=== PATIENT | female | born 1985 | race Caucasian/White ===

== ENCOUNTER 2017-04-11 11:07 | Emergency (ER) | payer MEDICAID, SELFPAY ==
[2017-04-11 12:10] VITALS: BP 150/85; PULSE 74; RESP 16; TEMP 37.1; O2SAT 98; BMI 35.2
== END 2017-04-11 13:17 | disposition left against medical advice (07) ==
LOC: UTC 11:14
PROVIDERS: Emergency Provider Nurse Practitioner Family; Family Provider Nurse Practitioner Family; PCP Nurse Practitioner Family
DX: Z53.29 Procedure and treatment not carried out because of patient's decision for other reasons (principal)
CPT/HCPCS: 99202

== ENCOUNTER 2017-04-13 00:43 | Emergency (ER) | payer MEDICAID, SELFPAY ==
[2017-04-13 00:51] VITALS: BP 131/79; PULSE 82; RESP 18; TEMP 36.7; O2SAT 99; BMI 35.1
--- NOTE | 2017-04-13 01:37 | HMH.EDHA ---
ED Disposition Clinical Impression: Headache Qualifiers: Headache type: unspecified Headache chronicity pattern: acute headache Intractability: not intractable Qualified Code(s): R51 - Headache Disposition: Home, Self-Care Condition on Discharge: Good Instructions: DI for Headache Additional Instructions: call pcp for follow up Referrals: Carmelo Blandon APRN [Primary Care Provider] - - Critical Care Critical Care Time: No Attestation: On 04/13/17, the high probability of a clinically significant, sudden or life threatening deterioration of the following system(s) required my full and direct attention, intervention and personal management. The time I documented below is in addition to time spent performing reported procedures but includes the following listed in this critical care notation. Medical Decision Making - Medical Records Medical records reviewed: Yes: I reviewed the patient's medical records. Vital Signs: 04/13/17 00:51 Temperature 98.0 F Temperature Source Oral Pulse Rate [Right Radial] 82 Respiratory Rate 18 Blood Pressure [Right Arm] 131/79 Blood Pressure Mean [Right Arm] 96 Blood Pressure Source [Right Arm] Automatic Cuff Blood Pressure Position [Right Arm] Sitting 02 Sat by Pulse Oximetry 99 Oxygen Delivery Method Room Air - Lab Data Lab results reviewed: Yes: I reviewed the patient's lab results. Lab Results 04/13/17 01:40: Urine HCG, Qual Negative Orders (Tests/Meds): ORDERS Category Date Time Status CT head/brain wo con Stat Cat Scan 04/13/17 01:43 Taken - CT Data CT Scan: Head Time Received: 02:[address] Reviewed: Yes: I have viewed the radiologist's interpretation Preliminary Findings: Normal/NAD - Juan Diego Inquiry Pt receiving controlled substance: No Headache HPI - General Chief Complaint: Headache Stated Complaint: migraine,pain in left hand Time Seen by Provider: 04/13/17 01:37 Mode of Arrival: Ambulatory Source of Information: Patient, Spouse, Medical Record Limitations: No Limitations Description of Symptoms (Recalled from ER Triage Doc. by RN): PT REPORTS MIGRAINE IN THE BACK OF HER HEAD WITH NAUSEA. - History of Present Illness HPI Narrative: pt with bilat occitial reyes over the last few days which is different from prev reyes with nausea but no fever/rash or trauma MD Complaint: headache Onset (ago): day(s) Onset description: now resolved Location: occipital Severity: moderate Quality: different than previous headaches Relieving factors: rest, NSAIDs, dark room Context: occurred at rest Associated symptoms: nausea Treatments prior to arrival: acetaminophen, ibuprofen - Related Data Home Medications Medication Instructions Recorded Confirmed Furosemide [Lasix 20mg tab] 20 mg PO NEEDED PRN 04/13/17 04/13/17 Allergies Allergy/AdvReac Type Severity Reaction Status Date / Time No Known Allergies Allergy Verified 04/13/17 01:01 [facility] History I have reviewed the patient's past medical history: Yes - *Social History Alcohol Intake: never - Psychiatric History Expresses thoughts of harming self/others: None Suicide Plan Description: No Plan ROS Obtained: Yes All systems reviewed & no additional complaints - Constitutional Constitutional: Denies fever(s) - Eyes Eyes: Denies change in vision - ENT Ears, Nose, Mouth, and Throat: Denies dizziness, Denies sore throat - Cardiovascular Cardiovascular: Denies chest pain at rest - Respiratory Respiratory: No cough - Gastrointestinal Gastrointestingal: Reports: nausea. Denies: abdominal pain - Musculoskeletal Musculoskeletal: Denies joint pain, Denies joint swelling - Integumentary/Breasts Skin/Breast: Denies rash - Neurologic Neurologic: Reports headache(s), Denies loss of vision, Denies seizure-like activity Physical Exam - General General appearance: in no apparent distress - Head Head exam: atraumatic - Eye Eye exam: Present: PERRL
--- NOTE | 2017-04-13 01:40 | ED_ITS ---
ED Disposition Clinical Impression: Headache Qualifiers: Headache type: unspecified Headache chronicity pattern: acute headache Intractability: not intractable Qualified Code(s): R51 - Headache Disposition: Home, Self-Care Condition on Discharge: Good Instructions: DI for Headache Additional Instructions: call pcp for follow up Referrals: Carmelo Blandon APRN [Primary Care Provider] - - Critical Care Critical Care Time: No Attestation: On 04/13/17, the high probability of a clinically significant, sudden or life threatening deterioration of the following system(s) required my full and direct attention, intervention and personal management. The time I documented below is in addition to time spent performing reported procedures but includes the following listed in this critical care notation. Medical Decision Making - Medical Records Medical records reviewed: Yes: I reviewed the patient's medical records. Vital Signs: 04/13/17 00:51 Temperature 98.0 F Temperature Source Oral Pulse Rate [Right Radial] 82 Respiratory Rate 18 Blood Pressure [Right Arm] 131/79 Blood Pressure Mean [Right Arm] 96 Blood Pressure Source [Right Arm] Automatic Cuff Blood Pressure Position [Right Arm] Sitting 02 Sat by Pulse Oximetry 99 Oxygen Delivery Method Room Air - Lab Data Lab results reviewed: Yes: I reviewed the patient's lab results. Lab Results 04/13/17 01:40: Urine HCG, Qual Negative Orders (Tests/Meds): ORDERS Category Date Time Status CT head/brain wo con Stat Cat Scan 04/13/17 01:43 Taken - CT Data CT Scan: Head Time Received: 02:[address] Reviewed: Yes: I have viewed the radiologist's interpretation Preliminary Findings: Normal/NAD - Juan Diego Inquiry Pt receiving controlled substance: No Headache HPI - General Chief Complaint: Headache Stated Complaint: migraine,pain in left hand Time Seen by Provider: 04/13/17 01:37 Mode of Arrival: Ambulatory Source of Information: Patient, Spouse, Medical Record Limitations: No Limitations Description of Symptoms (Recalled from ER Triage Doc. by RN): PT REPORTS MIGRAINE IN THE BACK OF HER HEAD WITH NAUSEA. - History of Present Illness HPI Narrative: pt with bilat occitial reyes over the last few days which is different from prev reyes with nausea but no fever/rash or trauma MD Complaint: headache Onset (ago): day(s) Onset description: now resolved Location: occipital Severity: moderate Quality: different than previous headaches Relieving factors: rest, NSAIDs, dark room Context: occurred at rest Associated symptoms: nausea Treatments prior to arrival: acetaminophen, ibuprofen - Related Data Home Medications Medication Instructions Recorded Confirmed Furosemide [Lasix 20mg tab] 20 mg PO NEEDED PRN 04/13/17 04/13/17 Allergies Allergy/AdvReac Type Severity Reaction Status Date / Time No Known Allergies Allergy Verified 04/13/17 01:01 [facility] History I have reviewed the patient's past medical history: Yes - *Social History Alcohol Intake: never - Psychiatric History Expresses thoughts of harming self/others: None Suicide Plan Description: No Plan ROS Obtained: Yes All systems reviewed & no additional complaints - Constitutional Constitutional: Denies fever(s)
--- NOTE | 2017-04-13 01:43 | CT_ITS ---
CT head/brain wo con INDICATION: Headache at the base of skull for [address] scan of brain 02/08/2016 Findings: Routine axial images for brain followed by additional post-processing axial bone window images. Axial CT scanning from the base of the skull through the vertex to evaluate the brain was performed. Subsequent post processing 2-D CT bone windows were submitted to PACS and are useful to evaluate calvarium, visualize portions of paranasal sinuses, mastoids and base of skull. Multiaxial scans are obtained from the base of the skull to the vertex and performed without contrast. The base of the skull appeared normal. The ventricular system was normal. There was no ischemic infarct or bleed and there were no extra-axial fluid collections. The bony calvarium appeared intact. IMPRESSION: Negative noncontrast CT scan of the brain. Agree the [facility] report
[2017-04-13 01:50] LABS: Urine Pregnancy, HCG Qual. Negative (Negative)
== END 2017-04-13 03:03 | disposition home or self-care (01) ==
PROVIDERS: Emergency Provider Emergency Medicine; Family Provider Nurse Practitioner Family; PCP Nurse Practitioner Family
DX: R51 Headache (principal)
CPT/HCPCS: 70450; 81025; 96372; 99283; J0595

== ENCOUNTER → 2017-04-17 14:11 | Outpatient (CLI) | payer MEDICAID, SELFPAY ==
[2017-04-17 19:57] LABS: Alanine Aminotransferase 120 U/L (12-78); Albumin/Globulin Ratio 1.1 (1.1-1.8); Alkaline Phosphatase 106 U/L (46-116); Anion Gap 13.3 mEq/L (5-15); Bilirubin,Total 0.3 mg/dL (0.2-1.0); Blood Urea Nitrogen 11 mg/dL (7-18); Calcium 8.8 mg/dL (8.5-10.1); Carbon Dioxide 26 mmol/L (21.0-32.0); Chloride 102 mmol/L (98-107); Creatinine,Serum 0.83 mg/dL (0.55-1.02); Estimated Glomerular Filt Rate 80 ml/min (>60); GFR (African American) 97 ML/MIN (>60); Globulin 3.5 gm/dl (1.3-3.2); Glucose 78 mg/dL (74-106); Sodium 137 mmol/L (136-145); Total Protein,Serum 7.5 gm/dL (6.4-8.2)
[2017-04-17 20:04] LABS: Potassium 4.3 mmoL/L (3.5-5.1)
[2017-04-17 20:05] LABS: Aspartate Amino Transferase 46 U/L (15-37)
== END ==
PROVIDERS: Visit Provider Nurse Practitioner Family
DX: R74.8 Abnormal levels of other serum enzymes (principal)
CPT/HCPCS: 80053

== ENCOUNTER → 2017-04-30 13:09 | Outpatient (CLI) | payer MEDICAID, SELFPAY ==
--- NOTE | 2017-04-30 13:11 | CA_ITS ---
PROCEDURE: 2-D M-mode and color Doppler study INDICATIONS FOR THE TEST: Chest pain COPD Heart Murmur Tobacco Smoking Palpitations Fatigue Syncope Edema Hypertension Diabetes Mellitus Rheumatic Fever SOB GOMEZ Obesity Hyperlipidemia Family History HD Additional History New onset headaches, R/O PFO, Dizziness PATIENT INFORMATION HEIGHT: 67'' WEIGHT:180 GENDER: Female B/P:126/50 2-D/M-MODE INTERPRETATION: 2-D MEASUREMENTS OBSERVED VALUES IN CMS Right Ventricular Dimension (RVDd) 2.0 Interventricular Septum (Thickness)(IVsd) 1.1 Left Ventricular Internal Dimensions(LVIDd) 4.2 Left Ventricular Posterior Wall (Thickness)(LVPWd) 1.0 Aortic Root 2.6 Aortic Cusp Separation 1.5 Left Atrial Dimensions (LAD) 3.7 2D 1. Left atrium is normal size, left ventricle is normal size, there is no concentric left ventricular hypertrophy, visually estimated ejection fraction 55% with no obvious regional wall motion abnormality. 2. The right atrium and right ventricle are normal size and contractility. 3. The aortic, mitral and tricuspid valve are structurally normal. 4. The pulmonic valve is poorly visualized. 5. No significant pericardial effusion noted. DOPPLER INTERROGATION: Doppler interrogation of the aortic, mitral and tricuspid valve reveals presence of mild mitral and tricuspid regurgitation, diastolic parameters are within normal limits, tricuspid regurgitant jet velocity insufficient for calculation of the right ventricular systolic pressure. Agitated saline contrast study fails to identify intracardiac shunt. CONCLUSION: 1. Normal left ventricular size, preserved left ventricular systolic function, visually estimated ejection fraction 55% with no obvious regional wall motion abnormality, diastolic parameters are within normal range. 2. Mild mitral and tricuspid regurgitation. 3. Agitated saline contrast study fails to identify intracardiac shunt.
== END ==
PROVIDERS: Family Provider Nurse Practitioner Family; PCP Emergency Medicine; Visit Provider Emergency Medicine
DX: R51 Headache (principal)
CPT/HCPCS: 93306

== ENCOUNTER → 2017-05-05 13:16 | Outpatient (CLI) | payer MEDICAID, SELFPAY ==
--- NOTE | 2017-05-05 13:19 | MR_ITS ---
MR head/brain wo con HISTORY: Severe headache mainly on the right side ORDERING PHYSICIAN: Andre Morales MD PATIENT AGE: 31 years COMPARISON: CT scan 04/13/2017 TECHNIQUE: Standard multiplanar multiecho sequences are performed without contrast. FINDINGS: No midline shift, mass effect, hydrocephalus, or intracranial mass evident. No evidence of acute infarction. No cerebellar tonsillar ectopia. Normal morales-white matter differentiation. There is a small cystic area in the subinsular region on the left measuring 4 mm and may be due to a small perivascular dilated spaces, choroidal fissure cyst, or old lacunar infarction with cystic changes. The cerebellopontine angles, cerebellum, and brainstem are unremarkable. Hippocampal gyri are unremarkable in the temporal horns are symmetric. The included. Optic chiasm and corpus callosum are unremarkable. Unremarkable craniocervical junction. No sinus air-fluid level. There is some fluid signal in the left mastoid sinus. IMPRESSION: 1. No acute intracranial findings. 2. Left mastoid effusion. 3. Small benign-appearing cystic area in the left subinsular region at 4 mm
--- NOTE | 2017-05-05 13:19 | US_ITS ---
ULTRASOUND THYROID PROCEDURE: Multiple sagittal & transverse ultrasound images of the thyroid. HISTORY:weight gain headaches fatigue COMPARISON: No relevant previous studies. ----- FINDINGS: Upper normal size thyroid gland. No nodules or masses. Normal color Doppler flow RIGHT LOBE: 4.3 cm length x 1.2 cm x 1.7 cm wide Slightly lobulated posterior margin of the right lobe but no discrete nodule. Fairly homogeneous . LEFT LOBE: 4.1 cm length x 1.5 cm wide x 1.3 cm. Normal posterior left lobe with no discrete nodule ISTHMUS:. Unremarkable. Normal thickness measuring 3 mm AP -----IMPRESSION------- Thyroid gland upper normal in size No nodule or mass is identified... Fairly homogeneous architecture
--- NOTE | 2017-05-14 04:14 | PC.NURSE ---
MRI RESULTS FAXED TO AT [phone]
== END ==
PROVIDERS: Family Provider Nurse Practitioner Family; PCP Emergency Medicine; Visit Provider Emergency Medicine
DX: R51 Headache (principal); E04.9 Nontoxic goiter, unspecified
CPT/HCPCS: 70551; 76536

== ENCOUNTER 2017-07-24 09:00 | Outpatient (RCR) | payer MEDICAID, SELFPAY | END 2017-07-24 09:01 | disposition home or self-care (01) | LOC: PT 09:00 | PROVIDERS: Family Provider Nurse Practitioner Family; PCP Emergency Medicine | DX: S46.819A Strain of other muscles, fascia and tendons at shoulder and upper arm level, unspecified arm, initial encounter (principal) | CPT/HCPCS: 97010; 97012; 97014; 97110; 97140; 97163; G0283 ==

== ENCOUNTER → 2017-07-31 11:17 | Outpatient (REF) | payer MEDICAID, SELFPAY ==
[2017-07-31 13:56] LABS: Alanine Aminotransferase 34 U/L (12-78); Albumin Level 3.9 gm/dL (3.4-5.0); Albumin/Globulin Ratio 1.2 (1.1-1.8); Alkaline Phosphatase 88 U/L (46-116); Anion Gap 15.5 mEq/L (5-15); Aspartate Amino Transferase 21 U/L (15-37); Bilirubin,Total 0.3 mg/dL (0.2-1.0); Blood Urea Nitrogen 11 mg/dL (7-18); Calcium 9.4 mg/dL (8.5-10.1); Carbon Dioxide 26 mmol/L (21.0-32.0); Chloride 106 mmol/L (98-107); Creatinine,Serum 0.74 mg/dL (0.55-1.02); Estimated Glomerular Filt Rate 92 ml/min (>60); GFR (African American) 111 ML/MIN (>60); Globulin 3.3 gm/dl (1.3-3.2); Glucose 110 mg/dL (74-106); Potassium 4.5 mmoL/L (3.5-5.1); Sodium 143 mmol/L (136-145); Total Protein,Serum 7.2 gm/dL (6.4-8.2)
== END ==
LOC: LAB 11:17
PROVIDERS: Visit Provider Nurse Practitioner Family
DX: R60.1 Generalized edema (principal); R53.83 Other fatigue; R63.5 Abnormal weight gain
CPT/HCPCS: 80053

== ENCOUNTER → 2017-08-02 09:28 | Outpatient (CLI) | payer MEDICAID, SELFPAY ==
[2017-08-02 12:32] LABS: Creatinine,Serum 0.89 mg/dL (0.55-1.02)
[2017-08-02 14:41] LABS: Creatinine,Urine Random 144 mg/dL (20-320); Patient Height,Urine 65; Patient Weight,Urine 220
[2017-08-02 15:22] LABS: Collection Time,Urine 24 hours; Creatinine 24 Hour,Urine 1728 mg/24hr (630-2500); Creatinine Clearance Urine 113.6 mL/min (25-115); Total Volume,Urine 1200 mL (600-1600)
== END ==
PROVIDERS: Visit Provider Nurse Practitioner Family
DX: R60.9 Edema, unspecified (principal)
CPT/HCPCS: 36415; 82575

== ENCOUNTER → 2017-08-06 08:06 | Outpatient (CLI) | payer MEDICAID, SELFPAY ==
--- NOTE | 2017-08-06 08:07 | NVE_ITS ---
Venous Exam Indications: 729.5 Pain in limb. 782.3 Edema. IMPRESSIONS No evidence of deep or superficial vein thrombosis involving the right lower extremity History: Right lower extremity pain. Edema of the right leg. Risk factors: Obese. Denies trauma. States she wakes up in the morning with edema in bilateral lower extremities. She's been taking Lasix but states it doesn't seem to be helping with the edema. Right lower extremity venous duplex evaluation. Doppler flow study including spectral analysis, color and morales scale imaging. Location: Vascular laboratory. Patient status: Outpatient. Tables: Venous flow and imaging: + +-------+ + Location Overall Flow properties + +-------+ + Right common femoral Patent Normal phasicity; spontaneous; normal augmentation; compressible + +-------+ + Right saphenofemoral junction Patent Compressible + +-------+ + Right profunda femoral Patent Compressible + +-------+ + Right femoral Patent Normal phasicity; spontaneous; normal augmentation; compressible + +-------+ + Right greater saphenous Patent Normal phasicity; spontaneous; normal augmentation; compressible + +-------+ + Right popliteal Patent Normal phasicity; spontaneous; normal augmentation; compressible + +-------+ + Right posterior tibial Patent Compressible + +-------+ + Right peroneal Patent Compressible + +-------+ + Right gastrocnemius Patent Compressible + +-------+ + Right soleal Patent Compressible + +-------+ + (Report amended ) Electronically signed by: Laci Cisse [id number]
== END ==
PROVIDERS: Family Provider Nurse Practitioner Family; PCP Emergency Medicine; Visit Provider Nurse Practitioner Family
DX: R60.1 Generalized edema (principal)
CPT/HCPCS: 93971

== ENCOUNTER → 2017-11-28 12:50 | Outpatient (CLI) | payer MEDICAID, SELFPAY ==
--- NOTE | 2017-11-28 12:51 | US_ITS ---
ULTRASOUND THYROID. HISTORY: Thyroid enlarged 6 month follow-up PROCEDURE: Multiple sagittal and transverse ultrasound images of the thyroid. COMPARISON: Previous thyroid ultrasound to 518 ----- FINDINGS: Fairly Homogeneous gland with no nodules evident. Slightly generous size gland bilaterally. RIGHT LOBE: 4.5 cm length x 1.6 cm AP x 1.4 cm wide. . LEFT LOBE: 4.3 cm length x 1.7 cm wide x 1.3 cm AP . ISTHMUS: Normal thickness 2.7 mm at midline. IMPRESSION 1. Borderline to slightly enlarged gland bilaterally. No nodule or mass is identified. No significant change since May 2017
== END ==
PROVIDERS: Family Provider Nurse Practitioner Family; PCP Emergency Medicine; Visit Provider Otolaryngology
DX: E01.0 Iodine-deficiency related diffuse (endemic) goiter (principal)
CPT/HCPCS: 76536

== ENCOUNTER → 2017-12-25 08:33 | Outpatient (CLI) | payer MEDICAID, SELFPAY ==
--- NOTE | 2017-12-25 08:35 | AS_ITS ---
Renal Arterial Duplex Indications: 405.91 Unspecified renovascular hypertension. IMPRESSIONS 1. The right renal artery appears normal. 2. The left renal artery appears normal. 3. Kidney size is within normal limits, bilaterally. Complete renal arterial duplex. Duplex scan and Doppler flow study including spectral analysis, color and morales scale imaging. Height: Height: 165.1cm. Height: 65in. Weight: Weight: 104.3kg. Weight: 229.5lb. Body mass index: BMI: 38.3kg/m^2. Body surface area: BSA: 2.24m^2. Location: Vascular laboratory. Patient status: Outpatient. Tables: Arterial flow: + +-------+--------+ Location V sys V ed + +-------+--------+ Right renal - proximal 157cm/s 54.3cm/s + +-------+--------+ Right renal - mid 201cm/s 58.7cm/s + +-------+--------+ Right renal - distal 193cm/s 63.6cm/s + +-------+--------+ Left renal - proximal 145cm/s 43.7cm/s + +-------+--------+ Left renal - mid 142cm/s 41.3cm/s + +-------+--------+ Left renal - distal 155cm/s 51.9cm/s + +-------+--------+ Right renal - Origin 149cm/s 56cm/s + +-------+--------+ Left renal - Origin 143cm/s 58cm/s + +-------+--------+ Aorta 125cm/s 25cm/s + +-------+--------+ Artery mapping: + +--------+-------+ Location Diameter Patency + +--------+-------+ Abdominal aorta - mid 2.2mm Patent + +--------+-------+ Renal anatomy: + +------+------+ Left Right + +------+------+ Long axis 10.1cm 10.6cm + +------+------+ Short axis 5.6cm 5.6cm + +------+------+ Velocity ratios: + +-----+ V sys + +-----+ Right renal/aortic 1.6 + +-----+ Left renal/aortic 1.2 + +-----+ (Report amended ) Electronically signed by: Laci Cisse [id number]
== END ==
PROVIDERS: Family Provider Nurse Practitioner Family; PCP Nurse Practitioner Family; Visit Provider Nurse Practitioner Family
DX: R60.9 Edema, unspecified (principal)
CPT/HCPCS: 93976

== ENCOUNTER → 2018-01-07 08:39 | Outpatient (CLI) | payer MEDICAID, SELFPAY ==
--- NOTE | 2018-01-07 08:41 | CA_ITS ---
CA echo doppler complete PROCEDURE: INDICATIONS FOR THE TEST: Chest pain+ COPD Heart Murmur Tobacco Smoking Palpitations Fatigue Syncope Edema+ Hypertension+Diabetes Mellitus Rheumatic Fever SOB GOMEZ Obesity Hyperlipidemia Family History HD Additional History H/o migraines, HTN PATIENT INFORMATION HEIGHT: 65 WEIGHT: 226 GENDER: Female B/P: 108/73 2-D/M-MODE INTERPRETATION: 2-D MEASUREMENTS OBSERVED VALUES IN CMS Right Ventricular Dimension (RVDd) 1.8 Interventricular Septum (Thickness)(IVsd) 0.7 Left Ventricular Internal Dimensions(LVIDd) 4.7 Left Ventricular Posterior Wall (Thickness)(LVPWd) 0.7 Aortic Root 2.6 Aortic Cusp Separation 1.8 Left Atrial Dimensions (LAD) 3.4 2D 1. Left atrium is normal size, left ventricle is normal size, there is no concentric left ventricular hypertrophy, visually estimated ejection fraction 55% with no regional wall motion abnormality. 2. The right atrium and right ventricle are normal size and contractility. 3. The aortic, mitral and tricuspid valvular grossly normal. 4. The pulmonic valve is poorly visualized. 5. No significant pericardial effusion noted. DOPPLER INTERROGATION: Doppler interrogation of the aortic, mitral and tricuspid valvular presence of mild mitral and tricuspid regurgitation, tricuspid regurgitation jet velocity is inadequate for calculation of the right ventricular systolic pressure, diastolic parameters are within normal range. CONCLUSION: 1. Normal left ventricular size, visually estimated ejection fraction 55% with no regional wall motion abnormality, diastolic parameters are within normal range. 2. Mild mitral and tricuspid regurgitation 3. No significant pericardial effusion noted.
== END ==
PROVIDERS: Family Provider Nurse Practitioner Family; PCP Nurse Practitioner Family; Visit Provider Internal Medicine
DX: R06.00 Dyspnea, unspecified (principal); R07.9 Chest pain, unspecified
CPT/HCPCS: 93017; 93306

== ENCOUNTER → 2018-02-09 09:26 | Outpatient (CLI) | payer MEDICAID, SELFPAY | PROVIDERS: PCP Nurse Practitioner Family; Visit Provider Internal Medicine Cardiovascular Disease | DX: R06.83 Snoring (principal); R40.0 Somnolence; R53.83 Other fatigue; R60.0 Localized edema | CPT/HCPCS: 95806 ==

== ENCOUNTER → 2018-02-26 10:37 | Outpatient (CLI) | payer MEDICAID, SELFPAY ==
[2018-02-26 10:55] LABS: Anion Gap 11.4 mEq/L (5-15); Blood Urea Nitrogen 10 mg/dL (7-18); Calcium 9.1 mg/dL (8.5-10.1); Carbon Dioxide 30 mmol/L (21.0-32.0); Chloride 101 mmol/L (98-107); Creatinine,Serum 0.86 mg/dL (0.55-1.02); Estimated Glomerular Filt Rate 76 ml/min (>60); GFR (African American) 93 ML/MIN (>60); Glucose 85 mg/dL (74-106); Potassium 4.4 mmoL/L (3.5-5.1); Sodium 138 mmol/L (136-145)
== END ==
PROVIDERS: Visit Provider Internal Medicine Cardiovascular Disease
DX: R60.0 Localized edema (principal)
CPT/HCPCS: 36415; 80048

== ENCOUNTER → 2018-03-06 11:34 | Outpatient (CLI) | payer MEDICAID, SELFPAY ==
[2018-03-06 12:24] LABS: Anion Gap 12.2 mEq/L (5-15); Blood Urea Nitrogen 12 mg/dL (7-18); Calcium 9.3 mg/dL (8.5-10.1); Carbon Dioxide 29 mmol/L (21.0-32.0); Chloride 103 mmol/L (98-107); Creatinine,Serum 0.94 mg/dL (0.55-1.02); Estimated Glomerular Filt Rate 69 ml/min (>60); GFR (African American) 84 ML/MIN (>60); Glucose 86 mg/dL (74-106); Potassium 4.2 mmoL/L (3.5-5.1); Sodium 140 mmol/L (136-145)
== END ==
PROVIDERS: Urology; PCP Nurse Practitioner Family; Visit Provider Internal Medicine Cardiovascular Disease
DX: R60.0 Localized edema (principal)
CPT/HCPCS: 36415; 80048

== ENCOUNTER → 2018-03-13 11:46 | Outpatient (CLI) | payer MEDICAID, SELFPAY ==
--- NOTE | 2018-03-13 11:48 | XR_ITS ---
XR hand LT min 3V HISTORY: ITS.REASON: Nodule on left hand ORDERING PHYSICIAN: Jennifer Martínez PATIENT AGE: 32 years COMPARISON: None FINDINGS: No fracture or dislocation. No lytic or blastic change. There is normal mineralization.. The joint spaces are well-preserved. No significant degenerative/arthritic changes. No erosive changes evident.. IMPRESSION: Negative, no acute finding
[2018-03-13 14:07] LABS: Basophils % 0.2 % (0.1-2.0); Eosinophils # 0.2 K/mm3 (0.0-0.4); Eosinophils % 2.4 % (0.1-12.0); Hematocrit 44.3 % (37.0-47.0); Hemoglobin 14.5 g/dL (12.2-16.2); Lymphocytes # 2.8 K/mm3 (0.7-4.5); Lymphocytes % 28.7 % (10-50); Mean Corpuscular HGB Conc 32.8 g/dL (31.8-35.4); Mean Corpuscular Hemoglobin 30.7 pg (27.0-31.2); Mean Corpuscular Volume 93.7 fl (81-99); Mean Platelet Volume 7.4 fl (7.4-10.4); Monocytes # 0.4 K/mm3 (0.1-1.0); Monocytes % 4.2 % (1.7-9.3); Neutrophils # 6.3 K/mm3 (1.8-7.8); Neutrophils % 64.6 % (37.0-80.0); Platelet Count 326 K/mm3 (142-424); Red Blood Count 4.73 M/mm3 (4.20-5.40); Red Cell Distribution Width 12.9 % (11.5-17.5); White Blood Count 9.7 K/mm3 (4.8-10.8)
[2018-03-13 15:04] LABS: Cholesterol 187 mg/dL (140-200); HDL Cholesterol 31 mg/dL (29-89); LDL Cholesterol 126 mg/dL (0-130); Thyroid Stimulating Hormone 2.22 uIU/ml (0.358-3.740); Triglycerides 150 mg/dL (30-200); VLDL Cholesterol 30 mg/dL (0-40)
[2018-03-13 15:36] LABS: Erythrocyte Sedimentation Rate 34 mm/hr (0-20)
[2018-03-14 18:39] LABS: RA Latex Turbid. <10.0 IU/mL (0.0-13.9)
[2018-03-14 18:40] LABS: Vitamin D 25 Hydroxy 20.9 ng/mL (30.0-100.0)
[2018-03-16 09:10] LABS: PTT-LA 30.8 sec (0.0-51.9); dRVVT 47.6 sec (0.0-47.0); dRVVT Mix 40.8 sec (0.0-47.0)
[2018-03-16 10:59] LABS: Lupus Reflex Interpretation Comment: (.)
[2018-03-16 12:15] LABS: Anti-Centromere B Antibodies <0.2 AI (0.0-0.9); Anti-Jo-1 <0.2 AI (0.0-0.9); Anti-Smith Antibody <0.2 AI (0.0-0.9); Antichromatin Antibodies <0.2 AI (0.0-0.9); Antiscleroderma-70 Antibodies <0.2 AI (0.0-0.9); RNP Antibodies <0.2 AI (0.0-0.9); Sjogren's Anti-SS-A <0.2 AI (0.0-0.9); Sjogren's Anti-SS-B <0.2 AI (0.0-0.9)
[2018-03-16 14:58] LABS: Anti-DNA (DS) Ab Qn <1 IU/mL (0-9)
[2018-03-17 06:00] LABS: Anti-Cyclic Citrullinated Pept 3 units (0-19)
== END ==
PROVIDERS: PCP Nurse Practitioner Family; Visit Provider Nurse Practitioner Family
DX: R22.32 Localized swelling, mass and lump, left upper limb (principal); M79.642 Pain in left hand; M25.50 Pain in unspecified joint; R53.83 Other fatigue; Z79.899 Other long term (current) drug therapy; E55.9 Vitamin D deficiency, unspecified
CPT/HCPCS: 36415; 73130; 80061; 82652; 84439; 84443; 85025; 85613; 85651; 86140; 86200; 86225; 86235; 86431

== ENCOUNTER → 2018-05-18 15:40 | Outpatient (CLI) | payer MEDICAID, SELFPAY ==
[2018-05-18 17:21] LABS: Ferritin 65 ng/mL (8-388)
== END ==
PROVIDERS: Visit Provider Specialist
DX: E83.10 Disorder of iron metabolism, unspecified (principal); G25.81 Restless legs syndrome; G47.33 Obstructive sleep apnea (adult) (pediatric)
CPT/HCPCS: 36415; 82728

== ENCOUNTER → 2018-08-10 10:12 | Outpatient (CLI) | payer MEDICAID, SELFPAY ==
--- NOTE | 2018-08-10 10:15 | US_ITS ---
US extremity LT limited HISTORY: Palpable nodule left axillary region ITS.REASON: nodule ORDERING PHYSICIAN: Jennifer Martínez APRN PATIENT AGE: 32 years COMPARISON: None FINDINGS: There is a complex hypoechoic nodule in the subcutaneous area of the left axilla corresponding to the palpable abnormality. This measures 6 x 5 mm with some internal increased echogenicity centrally. There is some through sound enhancement. No other significant anomalies are evident. IMPRESSION: Complex cystic nodule in the subcutaneous area of the left axilla 6 x 5 mm. The specific etiology is nonspecific sonographically.
== END ==
PROVIDERS: PCP Nurse Practitioner Family; Visit Provider Nurse Practitioner Family
DX: R59.0 Localized enlarged lymph nodes (principal)
CPT/HCPCS: 76882

== ENCOUNTER → 2018-09-28 10:56 | Outpatient (CLI) | payer MEDICAID, SELFPAY ==
--- NOTE | 2018-09-28 11:01 | XR_ITS ---
XR wrist LT w scaphoid HISTORY ITS.REASON: left wrist pain ORDERING PHYSICIAN: Anna Astudillo MD PATIENT AGE: 32 years Comparison: None FINDINGS: No fracture or dislocation. No lytic or blastic change. There is normal mineralization.. The joint spaces are well-preserved. No significant degenerative/arthritic changes. No erosive changes evident.. IMPRESSION: Negative wrist
== END ==
PROVIDERS: PCP Nurse Practitioner Family; Visit Provider Orthopaedic Surgery
DX: M25.532 Pain in left wrist (principal)
CPT/HCPCS: 73110

== ENCOUNTER → 2018-10-16 07:42 | Outpatient (CLI) | payer MEDICAID, SELFPAY ==
--- NOTE | 2018-10-16 07:44 | CT_ITS ---
CT wrist LT wo con HISTORY ITS.REASON: chronic wrist pain ORDERING PHYSICIAN: Anna Astudillo MD PATIENT AGE: 32 years Comparison: None FINDINGS No fracture or dislocation. There is normal alignment of the carpal bones and carpal metacarpal junction. No lytic or blastic change. Scapholunate space is well-preserved. No to the hamate is unremarkable. No abnormal fluid collections. No bony erosive process. IMPRESSION: Negative CT of the left wrist
== END ==
PROVIDERS: PCP Nurse Practitioner Family; Visit Provider Orthopaedic Surgery
DX: M25.532 Pain in left wrist (principal); G89.29 Other chronic pain
CPT/HCPCS: 73200

== ENCOUNTER 2018-12-11 13:30 | Outpatient (RCR) | payer MEDICAID, SELFPAY ==
--- NOTE | 2018-11-27 13:36 | HMH.OTOPEV ---
OT Inpatient Evaluation Rehab OT Outpatient Eval Start: 11/27/18 13:25 Freq: Status: Active Protocol: Document 11/27/18 13:25 TFRY (Rec: 11/27/18 13:36 TFRY [id number]) Electronically Signed By Maria R Kohler OT 11/27/18 13:25 Outpatient Therapy Subjective History Subjective History Patient seen this date for skilled occupational therapy evaluation. Patient referred to occupational for left wrist pain. Patient reports that she her left wrist has been bothering her for the past year. Chief Complaint Pain Symptom Type Ache,Sharp,Dull Symptoms Relieved By Rest/Positioning Symptoms Aggravated By Physical Activity Prior Functional Limitations None Current Functional Limitations None Symptom Description Activity Dependent Level of pain today (0-10) 2 Pain scale - at its best (0-10) 0 Pain scale - at its worst (0-10) 6 Wrist/Hand Eval Wrist Range of Motion Left Wrist ROM Reason Not Measured Within Functional Limits Wrist Manual Muscle Testing Left Wrist Extension Strength Grade 3+ Fair+ Wrist Flexion Strength Grade 3+ Fair+ Wrist Radial Deviation Strength Grade 3+ Fair+ Wrist Ulnar Deviation Strength Grade 3+ Fair+ Chief Financial Officer/Pinch Strength Chief Financial Officer Strength Measurement (lbs) 15 OT Outpatient Assessment Impairments Problems/Impairments Palpation Tenderness,Impaired Strength,Subjective C/O Pain Prognosis Rehab Potential Fair Clinical Impression Consistent with Diagnosis Yes Short Term Goals Number of Weeks 2 Decreased Palpation Tenderness Yes: by patient report decrease pain in dorsal aspect of left hand Increase Strength Yes: left wrist strength - 4-/ 5; left insurance policy clerk strength - 18 lbs Decrease Subjective C/O Pain Yes: pain a 3 at worse in left wrist Patient to be Ind w/ HEP Yes Patient to be Ind w/ Advanced HEP Yes Manager Data Warehousing Goals Number of Weeks 4 Decreased Palpation Tenderness Yes: by patient report decrease pain in dorsal aspect of left hand Increase Strength Yes: left wrist strength - 4-/ 5; left insurance policy clerk strength - 18 lbs Decrease Subjective C/O Pain Yes: pain a 1 at worse in left wrist Patient to be Ind w/ HEP Yes Patient to be Ind w/ Advanced HEP Yes Outpatient Therapy Plan of Care Treatment Plan May Include The
== END 2018-12-11 13:35 | disposition home or self-care (01) ==
LOC: OT 13:30
PROVIDERS: Visit Provider Orthopaedic Surgery
DX: M25.532 Pain in left wrist (principal)
CPT/HCPCS: 97033; 97110; 97165

== ENCOUNTER 2019-02-27 21:32 | Observation (INO) ==
--- NOTE | 2019-02-27 22:00 | Emergency Department Note ---
ED Disposition Clinical Impression: Obesity (BMI 30-39.9) Chest pain Qualifiers: Chest pain type: unspecified Qualified Code(s): R07.9 - Chest pain, unspecified Disposition: Admitted as Observation Condition on Discharge: Good - Critical Care Critical Care Time: No Attestation: On 02/27/19, the high probability of a clinically significant, sudden or life threatening deterioration of the following system(s) required my full and direct attention, intervention and personal management. The time I documented below is in addition to time spent performing reported procedures but includes the following listed in this critical care notation. Medical Decision Making - Medical Records Medical records reviewed: Yes: I reviewed the patient's medical records. - [place] Inquiry Pt receiving controlled substance: No Vital Signs: 02/27/19 21:33 Temperature 97.9 F Temperature Source Oral Pulse Rate [Left Radial] 87 Respiratory Rate 16 Blood Pressure [Right Arm] 137/83 Blood Pressure Mean [Right Arm] 101 Blood Pressure Source [Right Arm] Automatic Cuff Blood Pressure Position [Right Arm] Sitting 02 Sat by Pulse Oximetry 98 Oxygen Delivery Method Room Air - Lab Data Lab results reviewed: Yes: I reviewed the patient's lab results. Lab Results 02/27/19 21:40: ESR 21 H 02/27/19 21:40: Sodium 140, Potassium 3.8, Chloride 103, Carbon Dioxide 28, Anion Gap 12.8, BUN 10, Creatinine 0.82, Estimated Creat Clear 154, Estimated GFR 80, Est GFR ( Amer) 97, Glucose 118 H, Calcium 8.6, Total Bilirubin 0.3, Direct Bilirubin 0.1, Indirect Bilirubin 0.2, AST 13 L, ALT 20, Alkaline Phosphatase 79, Troponin I < 0.02, C-Reactive Protein 0.9, Total Protein 7.4, Albumin 3.8 02/27/19 21:40: WBC 10.3, RBC 4.52, Hgb 14.4, Hct 41.7, MCV 92.2, MCH 31.8 H, MCHC 34.4, RDW 13.3, Plt Count 285, MPV 7.9, Neut % (Auto) 62.6, Lymph % (Auto) 30.1, [place] % (Auto) 4.6, Eos % (Auto) 2.4, Baso % (Auto) 0.4, Neut # (Auto) 6.4, Lymph # (Auto) 3.1, [place] # (Auto) 0.5, Eos # (Auto) 0.3, Baso # (Auto) 0.0 Result diagrams: 02/27/19 21:40 02/27/19 21:40 Orders (Tests/Meds): ED MEDICATIONS Generic Name Dose Route Start Last Admin Trade Name Freq PRN Reason Stop Dose Admin Sodium Chloride 1,000 mls @ 999 mls/hr 02/27/19 23:30 02/27/19 23:20 Sod Chlor 0.9% 1000ml Bag IV 02/28/19 00:30 999 mls/hr .Q1H1M DANDRE Administration Sodium Chloride 10 ml 02/27/19 23:49 Sodium Chloride 0.9% 10ml Vial IV 03/29/19 23:48 NEEDED PRN dilute protonix Discontinued Medications Generic Name Dose Route Start Last Admin Trade Name Kiq PRN Reason Stop Dose Admin Aspirin 324 mg 02/27/19 21:54 02/27/19 21:55 Aspirin 81mg Chewable Tablet PO 02/27/19 21:55 324 mg ONCE ONE Administration Ketorolac Tromethamine 30 mg 02/27/19 23:18 02/27/19 23:20 Toradol 30mg/Ml Vial IV 02/27/19 23:19 30 mg ONCE ONE Administration Morphine Sulfate 2 mg 02/27/19 23:48 02/27/19 23:58 Morphine 2mg/Ml Syringe IV 02/27/19 23:49 2 mg ONCE ONE Administration Nitroglycerin 0.4 mg 02/27/19 21:54 02/27/19 21:59 Nitrostat 0.4mg Sl Tablet SL 02/27/19 21:55 1 dose ONCE ONE Administration Nitroglycerin 0.4 mg 02/27/19 23:18 02/27/19 23:20 Nitrostat 0.4mg Sl Tablet SL 02/27/19 23:19 0.4 mg ONCE ONE Administration Nitroglycerin 0.5 gm 02/27/19 23:50 02/27/19 23:58 Nitroglycerin 1 Inch Oint Udp TD 02/27/19 23:51 0.5 gm ONCE ONE Administration Pantoprazole Sodium 40 mg 02/27/19 23:49 02/27/19 23:58 Protonix 40mg Vial IV 02/27/19 23:50 40 mg ONCE ONE Administration ORDERS Category Date Time Status XR chest 2V Stat Exams 02/27/19 21:45 Taken Troponin I Q3H Lab 02/28/19 01:00 Ordered Troponin I Q3H Lab 02/28/19 04:00 Ordered Urinalysis and Microscopic Routine Lab 02/27/19 Ordered - Radiology Data #1 Image(s): Chest Image Reviewed: Yes I reviewed the patient's radiology image Preliminary Findings: Normal/NAD - ECG Data Tracing #1 Normal Sinus Rhythm: Yes Ischemic changes: non-specific ST-T wave changes Chest Pain HPI - General Chief Complaint: Chest Pain Stated Complaint: chest pain Time Seen by Provider: 02/27/19 21:45 Mode of Arrival: Ambulatory Source of Information: Patient, Medical Record Limitations: No Limitations Description of Symptoms (Recalled from ER Triage Doc. by RN): pt stated she has had back pain for the last 3 days. but tonight at 8pm pt stated she started to have chest pain on the right side radiating to her right shoulder blade and right side of neck - History of Present Illness HPI narrative: pt with acute onset of chest pain -ant and heaviness which started tonight with prev rt scapular pain - pt reports sob - no fever or rash and no trauma - no known heart dis and neg gxt 1 yr ago - MD complaint: chest pain indicative of cardiac Onset (ago): hour(s) Duration: constant Activity at onset: during rest Pain location: substernal Severity: moderate Quality: heaviness Risk Factors for CAD: Family Hx of CAD Treatments prior to or on arrival for Cardiac Chest Pain: none - LACHELLE Score for Non-Stemi Age of Patient: 30-39 years old Heart Rate: 70-89 bpm Systolic Blood Pressure: 120-139 mmhg Serum Creatinine: 0.80-1.19 mg/dl CHF [place] Class: I-No CHF Other Risk Factors: None Non-Stemi Risk Score: 58 - Related Data Prior Cardiac Testing/Procedures: Stress Test On Oral Contraceptives: No Home Medications Medication Instructions Recorded Confirmed Hydroxychloroquine Sulfate 200 mg PO BID 02/27/19 02/27/19 [Plaquenil] Previous Rx's Medication Instructions Recorded pramipexole 0.25 mg tablet 0.25 mg PO QHS 30 Days #30 tab 05/18/18 Allergies Allergy/AdvReac Type Severity Reaction Status Date / Time No Known Allergies Allergy Verified 02/27/19 21:50 [facility] History - Hepatitis A Screen Drug use history?: No High risk sexual behaviors?: No History of sexually transmitted infection?: No Currently employed?: No Childcare worker?: No Do you have indoor plumbing?: Yes Do you have electricity?: Yes Attestation statement:: This patient has been screened for Hepatitis A risk factors. I have reviewed the patient's past medical history: Yes Medical History: Reports:: Hypertension, Migraine Denies:: Cancer, Diabetes Mellitus Type 1, Diabetes Mellitus Type 2, Internal Pacemaker, MRSA, Seizures Other Medical History: Reports: Other. Denies: Blood Transfusion Reaction Comment: Sleep apnea Other Surgeries: Yes: Appendectomy, Cholecystectomy, Other. No: Pacemaker Amputation: No Fractures: No Comment: GALLBLADDER REMOVED. both tubes removed. excision left axilla - Social History Smoking Status: Never smoker Alcohol Intake: never Substance Use Type: denies use Occupational Status: employed Housing: house Household Members: spouse, children Family Hx:: Hypertension ROS Obtained: Yes All systems reviewed & no additional complaints - Constitutional Constitutional: Denies fever(s) - Eyes Eyes: Denies change in vision - ENT Ears, Nose, Mouth, and Throat: Denies sore throat - Cardiovascular Cardiovascular: Reports chest pain, Reports dyspnea - Respiratory Respiratory: No cough - Gastrointestinal Gastrointestingal: Denies: abdominal pain - Genitourinary Female Genitourinary: Denies hematuria - Musculoskeletal Musculoskeletal: Denies joint pain, Denies joint swelling - Integumentary/Breasts Skin/Breast: Denies rash - Neurologic Neurologic: Denies seizure-like activity Physical Exam - General General appearance: alert, in no apparent distress, obese - Head Head exam: normocephalic - Eye Eye exam: Present: PERRL, EOMI. Absent: scleral icterus - ENT ENT exam: Present: mucous membranes dry - Neck Neck exam: Absent: trachea midline - Respiratory Respiratory exam: Present: normal lung sounds bilaterally. Absent: respiratory distress - Cardiovascular Cardiovascular exam: Present: regular rate. Absent: systolic murmur, rubs - Abdominal Exam Abdominal exam: Present: soft - Extremities Exam Extremities exam: Present: full ROM. Absent: joint swelling - Neurological Exam Neurological exam: Present: alert, oriented X3, CN II-XII intact - Psychiatric Psychiatric exam: Present: normal affect - Skin Skin exam: Absent: rash
[2019-02-27 22:04] LABS: Alanine Aminotransferase 20 U/L (12-78); Albumin Level 3.8 gm/dL (3.4-5.0); Alkaline Phosphatase 79 U/L (46-116); Anion Gap 12.8 mEq/L (5-15); Aspartate Amino Transferase 13 U/L (15-37); Bilirubin,Direct 0.1 mg/dL (0.0-0.2); Bilirubin,Indirect 0.2 mg/dL (0.0-0.9); Bilirubin,Total 0.3 mg/dL (0.2-1.0); Blood Urea Nitrogen 10 mg/dL (7-18); C-Reactive Protein 0.9 mg/dL (0.0-0.9); Calcium 8.6 mg/dL (8.5-10.1); Carbon Dioxide 28 mmol/L (21.0-32.0); Chloride 103 mmol/L (98-107); Glucose 118 mg/dL (74-106); Sodium 140 mmol/L (136-145); Total Protein,Serum 7.4 gm/dL (6.4-8.2)
[2019-02-27 23:04] LABS: Basophils % 0.4 % (0.1-2.0); Eosinophils # 0.3 K/mm3 (0.0-0.4); Eosinophils % 2.4 % (0.1-12.0); Hematocrit 41.7 % (37.0-47.0); Hemoglobin 14.4 g/dL (12.2-16.2); Lymphocytes # 3.1 K/mm3 (0.7-4.5); Lymphocytes % 30.1 % (10-50); Mean Corpuscular HGB Conc 34.4 g/dL (31.8-35.4); Mean Corpuscular Volume 92.2 fl (81-99); Mean Platelet Volume 7.9 fl (7.4-10.4); Monocytes # 0.5 K/mm3 (0.1-1.0); Monocytes % 4.6 % (1.7-9.3); Neutrophils # 6.4 K/mm3 (1.8-7.8); Neutrophils % 62.6 % (37.0-80.0); Platelet Count 285 K/mm3 (142-424); Red Blood Count 4.52 M/mm3 (4.20-5.40); Red Cell Distribution Width 13.3 % (11.5-17.5); White Blood Count 10.3 K/mm3 (4.8-10.8)
[2019-02-28 04:35] LABS: Anion Gap 15.2 mEq/L (5-15); Blood Urea Nitrogen 9 mg/dL (7-18); Carbon Dioxide 23 mmol/L (21.0-32.0); Chloride 107 mmol/L (98-107); Chol/HDL Ratio 3.7 (1-3.5); Cholesterol 142 mg/dL (140-200); HDL Cholesterol 38 mg/dL (29-89); LDL Cholesterol 89 mg/dL (0-130); Sodium 141 mmol/L (136-145); Triglycerides 77 mg/dL (30-200); VLDL Cholesterol 15 mg/dL (0-40)
[2019-02-28 04:38] LABS: Basophils % 0.4 % (0.1-2.0); Eosinophils # 0.2 K/mm3 (0.0-0.4); Eosinophils % 2.5 % (0.1-12.0); Glucose 94 mg/dL (74-106); Hematocrit 35.9 % (37.0-47.0); Lymphocytes % 32.6 % (10-50); Mean Corpuscular HGB Conc 35.5 g/dL (31.8-35.4); Mean Corpuscular Volume 91.2 fl (81-99); Mean Platelet Volume 8.8 fl (7.4-10.4); Monocytes # 0.5 K/mm3 (0.1-1.0); Monocytes % 5.7 % (1.7-9.3); Neutrophils # 5.4 K/mm3 (1.8-7.8); Neutrophils % 58.8 % (37.0-80.0); Platelet Count 243 K/mm3 (142-424); Red Blood Count 3.93 M/mm3 (4.20-5.40); Red Cell Distribution Width 13.3 % (11.5-17.5); White Blood Count 9.1 K/mm3 (4.8-10.8)
[2019-02-28 04:39] LABS: Hemoglobin 12.7 g/dL (12.2-16.2)
--- NOTE | 2019-02-28 09:08 | History & Physical Report ---
*Admission Date: 02/28/19 *Chief complaint: chest pain *History of present illness: this wf who has rt scapular pain over the last few days - she also had no fever/rash or trauma- she presented to ed with pressure ant chest pain which was relieved with ntg - pt was admitted for eval and treatment - [facility] History I have reviewed the patient's past medical history: Yes Medical History: Reports:: Hypertension, Migraine Denies:: Cancer, Diabetes Mellitus Type 1, Diabetes Mellitus Type 2, Internal Pacemaker, MRSA, Seizures *Have you ever received a pneumonia vaccine?: No *Have you received a flu vaccine this season?: Yes Other Medical History: Reports: Other. Denies: Blood Transfusion Reaction Other Surgeries: Yes: Appendectomy, Cholecystectomy, Tubal Ligation, Other. No: Pacemaker Amputation: No Fractures: No - *Social History Educational Level: Completed High School Smoking Status: Never smoker Alcohol Intake: never Substance Use Type: denies use *Occupational Status:: employed Housing: house Household Members: spouse, children *Travel in the last 8 weeks: None Family Hx:: Hypertension, Stroke Review of Systems - Review of Systems Review of systems:: pertinent systems reviewed and negative unless documented below - Constitutional Denies fever(s), Denies headache(s) - Eyes Denies change in vision - ENT Denies sore throat - *Cardiovascular Reports chest pain at rest, Denies shortness of breath - *Respiratory Reports pain on inspiration, Denies cough - *Gastrointestinal Denies abdominal pain - *Genitourinary Denies pelvic pain - *Musculoskeletal Denies joint pain, Denies limited joint movement - Integumentary/Breasts Denies rash - *Neurologic Denies headache(s), Denies seizure-like activity - Psychiatric Denies anxiety Meds Home Medications Medication Instructions Recorded Confirmed Type pramipexole 0.25 mg tablet 0.25 mg PO QHS 30 Days #30 tab 05/18/18 02/28/19 Rx Hydroxychloroquine Sulfate 200 mg PO BID 02/27/19 02/28/19 History [Plaquenil] Allergies Allergy/AdvReac Type Severity Reaction Status Date / Time No Known Allergies Allergy Verified 02/27/19 21:50 Exam Vital signs and Labs for Last 24 Hours: Temp Pulse Resp BP Pulse Ox 97.9 F 84 18 117/73 95 02/28/19 07:51 02/28/19 07:51 02/28/19 07:51 02/28/19 07:51 02/28/19 07:51 Laboratory Results - last 24 hr 02/27/19 21:40: ESR 21 H 02/27/19 21:40: Sodium 140, Potassium 3.8, Chloride 103, Carbon Dioxide 28, Anion Gap 12.8, BUN 10, Creatinine 0.82, Estimated Creat Clear 154, Estimated GFR 80, Est GFR ( Amer) 97, Glucose 118 H, Calcium 8.6, Total Bilirubin 0.3, Direct Bilirubin 0.1, Indirect Bilirubin 0.2, AST 13 L, ALT 20, Alkaline Phosphatase 79, Troponin I < 0.02, C-Reactive Protein 0.9, Total Protein 7.4, Albumin 3.8 02/27/19 21:40: WBC 10.3, RBC 4.52, Hgb 14.4, Hct 41.7, MCV 92.2, MCH 31.8 H, MCHC 34.4, RDW 13.3, Plt Count 285, MPV 7.9, Neut % (Auto) 62.6, Lymph % (Auto) 30.1, [place] % (Auto) 4.6, Eos % (Auto) 2.4, Baso % (Auto) 0.4, Neut # (Auto) 6.4, Lymph # (Auto) 3.1, [place] # (Auto) 0.5, Eos # (Auto) 0.3, Baso # (Auto) 0.0 02/28/19 01:00: Troponin I < 0.02 02/28/19 04:05: WBC 9.1, RBC 3.93 L, Hgb 12.7 D, Hct 35.9 L, MCV 91.2, MCH 32.4 H, MCHC 35.5 H, RDW 13.3, Plt Count 243, MPV 8.8, Neut % (Auto) 58.8, Lymph % (Auto) 32.6, [place] % (Auto) 5.7, Eos % (Auto) 2.5, Baso % (Auto) 0.4, Neut # (Auto) 5.4, Lymph # (Auto) 3.0, [place] # (Auto) 0.5, Eos # (Auto) 0.2, Baso # (Auto) 0.0 02/28/19 04:05: Sodium 141, Potassium 4.2, Chloride 107, Carbon Dioxide 23, Anion Gap 15.2 H, BUN 9, Creatinine 0.83, Estimated Creat Clear 163, Estimated GFR 79, Est GFR ( Amer) 96, Glucose 94 D, Calcium 8.0 L, Magnesium 1.7, Troponin I < 0.02, Triglycerides 77, Cholesterol 142, LDL Cholesterol 89, VLDL Cholesterol 15, HDL Cholesterol 38, Cholesterol/HDL Ratio 3.7 H I & O for Last 24 hours: Intake & Output 02/25/19 02/26/19 02/27/19 02/28/19 11:59 11:59 11:59 11:59 Intake Total 360 / 360 Balance 360 / 360 Weight 236 lb - Constitutional no acute distress, obese - *Routine HEENT Exam Head: Present: normocephalic Eye: Present: EOMI, PERRL ENT: Present: mucous membranes dry - *Routine Neck Exam Absent: JVD - *Routine Respiratory Exam Present: CTA bilaterally - *Routine Cardiovascular Exam Present: RRR, murmur. Absent: rubs - *Routine Abdominal Exam Present: soft - *Routine Extremities Exam Absent: calf tenderness - *Routine Skin Exam Present: intact - *Routine Neurological Exam Present: alert, oriented X3, CN II-XII intact - Routine Psychiatric Exam Present: normal affect Assessment and Plan (1) Chest pain Current visit: Yes Status: Acute Qualifiers: Chest pain type: unspecified Qualified Code(s): R07.9 - Chest pain, unspecified Category: Medical Code(s): R07.9 - Chest pain, unspecified (2) Obesity (BMI 30-39.9) Current visit: Yes Status: Acute Category: Medical Code(s): E66.9 - Obesity, unspecified (3) HLD (hyperlipidemia) Current visit: No Status: Chronic Qualifiers: Hyperlipidemia type: mixed hyperlipidemia Qualified Code(s): E78.2 - Mixed hyperlipidemia Category: Medical Code(s): E78.5 - Hyperlipidemia, unspecified (4) HTN (hypertension) Current visit: No Status: Chronic Qualifiers: Hypertension type: essential hypertension Qualified Code(s): I10 - Essential (primary) hypertension Category: Medical Code(s): I10 - Essential (primary) hypertension
--- NOTE | 2019-02-28 10:37 | Pharmacy Consult Notes ---
[facility] Pharmacy VTE Monitoring - Patient Demographics Admission date: 02/28/19 Report Date: 02/28/19 Time: 10:36 Allergies/Adverse Reactions: Patient Allergies No Known Allergies Allergy (Verified 02/27/19 21:50) Height: 1.65 m Weight: 107.048 kg Patient Problems: Current Active Problems Chest pain (Acute) Obesity (BMI 30-39.9) (Acute) - VTE Risk Labs: VTE Related Lab Results Hgb 12.7 g/dL (12.2-16.2) D 02/28/19 04:05 Hct 35.9 % (37.0-47.0) L 02/28/19 04:05 Plt Count 243 K/mm3 (142-424) 02/28/19 04:05 BUN 9 mg/dL (7-18) 02/28/19 04:05 Creatinine 0.83 mg/dL (0.55-1.02) 02/28/19 04:05 Estimated Creat Clear 163 mL/min (50-200) 02/28/19 04:05 Was VTE Risk Assessment Performed: Yes VTE Score: 2 VTE Risk Level: Very Low Risk - Prophylaxis VTE Prophylaxis Ordered?: Yes Types of VTE Prophylaxis: TEDS Knee High Location of Applied Device: Bilateral Lower Extremeties
--- NOTE | 2019-02-28 20:13 | Electrocardiograph Report ---
APPROVED REPORT Exam: Resting ECG HR:92 bpm ECG Measurements Heart Rate 92 AXES TX 120 P 58 QRSd 86 QRS 36 QT 356 T63 QTc 440 <Conclusion> Normal sinus rhythm Normal ECG Electronically signed by : Cesar Navarro, 02/28/2019 20:12:47
--- OUTSIDE RECORDS SUMMARY | 2019-03-01 17:03 | External Medical Summary | Continuity of Care Document ---
:1985 Author Organization [facility] Address [address] [place] [address] Eas t JEAN PAUL [place] [phone] Phone Care Team Providers Name Role Phone Baudilio Attending Provider Barber Primary Care Provider Margarita Morales Attending Provider Tanya Primary Care Provider Allergies, Adverse Reactions, Alerts No known allergies. Medications Medication Status Dose Units Route Sig Qty Days Start End Instruct ions Date Date Hydroxychloroquin Active 200 MG Oral Twice a January e Sulfate day 2018 9:50pm Pramipexole Active 0.25 MG Oral At February 28 TO 1 Di-Hcl bedtime 2018 TABLET 2 nightly 10:37am HOURS BEFO RE BED Problems Active Problems Medical Problem Onset Date Status JACQUIE on CPAP Active Edema Active Headache Active HLD (hyperlipidemia) Active Chest pain Active HTN (hypertension) Active Laceration of toe Active Obesity (BMI 30-39.9) Active Procedures Procedure Date Performed Status XR chest 2V February 27, 2019 completed ECG initial Besson February 27, [address] angio chest February 28, 2019 completed ECG repeat same Besson February 28, 2019 completed Relevant Diagnostic Tests and/or Laboratory Data Laboratory Results Test Date/Time Result Interpretation Reference Result Perfo rming Range Comment Site White Blood Count March 08.1 4.8-10.8 [place] [facility], [address] [place] [address] E 2018 K/mm3 [place] [address] 4:05am Red Blood Count February 3.93 4.20-5.40 [facility], [address] [place] [address] E 2018 M/mm3 [place] [address] 4:05am Hemoglobin Shubham 12.7 12.2-16.2 Delta: 14.4 [facility], [address] [place] [address] E 2018 g/dL on [place] [address] 4:05am 02/27/19-2140 Hematocrit Shubham 35.9 % 37.0-47.0 [facility], [address] [place] [address] E 2018 [place] [address] 4:05am Mean Corpuscular Shubham 91.2 fl 81-99 [facility], [address] [place] [address] E Volume 2018 [place] [address] 4:05am Mean Corpuscular February 32.4 pg 27.0-31.2 [facility], [address] [place] [address] E Hemoglobin 2018 [place] [address] 4:05am Mean Corpuscular Shubham 35.5 31.8-35.4 [facility], [address] [place] [address] E Hemoglobin Concent 2018 g/dL C hilda [place] [address] 4:05am Red Cell February 13.3 % 11.5-17.5 [facility], [address] [place] [address] E Distribution Width 2018 C h[place] [address] 4:05am Platelet Count February 243 142-424 [facility], [address] [place] [address] E 2018 K/mm3 [place] [address] 4:05am Mean Platelet February 8.8 fl 7.4-10.4 [facility], [address] [place] [address] E Volume 2018 [place] [address] 4:05am Neutrophils (%) February 58.8 % 37.0-80.0 [facility], [address] [place] [address] E (Auto) 2018 [place] [address] 4:05am Lymphocytes (%) February 32.6 % 10-50 [place] [address] E (Auto) 2018 [place] [address] 4:05am Monocytes (%) Shubham 5.7 % 1.7-9.3 [facility], [address] [place] [address] E (Auto) 2018 [place] [address] 4:05am Eosinophils (%) Shubham 2.5 % 0.1-12.0 [facility], [address] [place] [address] E (Auto) 2018 [place] [address] 4:05am Basophils (%) Shubham 0.4 % 0.1-2.0 [facility], [address] [place] [address] E (Auto) 2018 [place] [address] 4:05am Neutrophils # February 5.4 1.8-7.8 [facility], [address] [place] [address] E (Auto) 2018 K/mm3 [place] [address] 4:05am Lymphocytes # February 3.0 0.7-4.5 [facility], [address] [place] [address] E (Auto) 2018 K/mm3 [place] [address] 4:05am Monocytes # (Auto) Shubham 0.5 0.1-1.0 [facility], [address] [place] [address] E 2018 K/mm3 [place] [address] 4:05am Eosinophils # Shubham 0.2 0.0-0.4 [facility], [address] [place] [address] E (Auto) 2018 K/mm3 [place] [address] 4:05am Basophils # (Auto) Shubham 0.0 0-0.2 [facility], [address] [place] [address] E 2018 K/mm3 [place] [address] 4:05am Erythrocyte February 18 0-20 [facility], [address] [place] [address] E Sedimentation Rate 2018 mm/[place] [address] 9:40pm Troponin I February < 0.02 0.00-0.06 *ALERT* High [facility], [address] [place] [address] E 2018 ng/[place] [address] 4:05am Biotin can falsely depress Troponin results.Many dietary supplements promoted for hair,skin, and nail benefits contain biotin levels up to 650 times the recommended daily intake of biotin. In additon to dietary supplements, Biotin is occasionally prescribed for medical conditions. Sodium Level February 141 136-145 [facility], [address] [place] [address] E 2018 mmol/[place] [address] 4:05am Potassium Level February 4.2 3.5-5.1 [facility], [address] [place] [address] 36 E 2018 mmoL/[place] [address] 4:05am Chloride Level February 107 98-107 [facility], [address] [place] [address] 36 E 2018 mmol/[place] [address] 4:05am Carbon Dioxide February 23 21.0-32.0 [facility], [address] [place] [address] 36 E Level 2018 mmol/[place] [address] 4:05am Anion Gap February 15.2 5-15 [facility], [address] [place] [address] E 2018 mEq/[place] [address] 4:05am Blood Urea February 9 mg/dL 7-18 [facility], [address] [place] [address] E Nitrogen 2018 [place] [address] 4:05am Creatinine February 0.83 0.55-1.02 [facility], [address] [place] [address] E 2018 mg/[place] [address] 4:05am Estimated Shubham 163 0-300 [facility], [address] [place] [address] E Creatinine 2018 mL/[place] [address] Clearance 4:05am Estimated GFR February >59 [facility], [address] [place] [address] 36 E () 2018 ML/[place] [address] 4:05am Estimat Glomerular February 79 >59 [facility], [address] [place] [address] E Filtration Rate 2018 ml/[place] [address] 4:05am Glucose Level February 94 74-106 Delta: 118 on [place] [facility], [address] [place] [address] 36 E 2018 mg/dL 02/27/19-2140 [place] [address] 4:05am Calcium Level February 8.0 8.5-10.1 [facility], [address] [place] [address] 36 E 2018 mg/[place] [address] 4:05am Magnesium Level February 1.7 1.4-2.2 [facility], [address] [place] [address] E 2018 mg/[place] [address] 4:05am Total Bilirubin January 0.3 0.2-1.0 [facility], [address] [place] [address] 36 E 2018 mg/[place] [address] 9:40pm Direct Bilirubin January 0.1 0.0-0.2 [facility], [address] [place] [address] 36 E 2018 mg/[place] [address] 9:40pm Indirect Bilirubin November 0.2 0.0-0.9 [facility], [address] [place] [address] E 2018 mg/dL [place] [address] 9:40pm Aspartate Amino November 13 U/L 15- [facility], [address] [place] [address] E Transf (AST/SGOT) 2018 [place] [address] 9:40pm Alanine January 20 U/L 12 [facility], [address] [place] [address] E Aminotransferase 2018 [place] [address] (ALT/SGPT) 9:40pm C-Reactive Protein January 0.9 0.0-0.9 [facility], [address] [place] [address] 36 E 2018 mg/dL [place] [address] 9:40pm Total Protein January 7.4 6.4-8.2 [facility], [address] [place] [address] E 2018 gm/dL [place] [address] 9:40pm Albumin January 3.8 3.4-5.0 [facility], [address] [place] [address] E 2018 gm/dL [place] [address] 9:40pm Triglycerides February 77 30-200 [facility], [address] [place] [address] E Level 2018 mg/dL [place] [address] 4:05am Cholesterol Level February 142 140-200 [place] [facility], [address] [place] [address] 36 E 2018 mg/dL [place] [address] 4:05am LDL Cholesterol February 89 0-130 [facility], [address] [place] [address] E 2018 mg/dL [place] [address] 4:05am VLDL Cholesterol February 15 0-40 [facility], [address] [place] [address] E 2018 mg/dL [place] [address] 4:05am HDL Cholesterol February-89 [facility], [address] [place] [address] E 2018 mg/[place] [address] 4:05am Cholesterol/HDL February 3.7 1-3.5 [facility], [address] E Ratio 2018 [place] [address] 4:05am Alkaline January 79 U/L 46-116 [facility], [facility] 36 E Phosphatase 2018 [place] [address] 9:40pm Diagnostic Imaging Reports Report Dictated Date/Time Dictated By Status Radiology Report February 27, 2019 Chaparro Mehta completed 10:04pm [place] [id number] [facility] [address] [place] [id number] XRay R eport Sig mckenzie Patient: DennisTalia Marlen Monte R#: [id number] : 1985 Acct:[id number] Age/Sex: 33 / F ADM Date: 9 Loc: Attending Dr: Andre Morales MD Ordering Physician: Andre Morales MD Date of Service: 02/27/19 Procedure(s): XR chest 2V Accession Number(s): [id number] cc: Chaparro Mehta ; Jennifer Martínez APR N~ PROCEDURE: XR CHEST 2V CLINICAL HISTORY: chest pain COMPARISON: CXR CHEST(2 VIEWS-NOT PORT ABLE) from 11/06/2013 FINDINGS: The cardiomediastinal silhouette and pu lmonary vascularity are within normal limits. The lungs are clear without infiltrates , suspicious nodules, or pleural effusions. There is a calcifie d granuloma right lower lobe and there are small calcified right hil ar nodes. No acute bony abnormalities. IMPRESSION: No acute findings. Dictated by: Dr. Osiel Mehta MD 2018 09:[address] Sarah Mehta MD in [place] 02/28/2019 09:09 Radiology Report February 28, 2019 Chaparro Mehta completed 9:33am [place] [address] [facility] [address] [place] [id number] [address] Scan Report Sig mckenzie Patient: Talia Collins R#: [id number] : 1985 Acct:[id number] Age/Sex: 33 / F ADM Date: 9 Loc: Attending Dr: Andre Morales MD Ordering Physician: Andre Morales MD Date of Service: 02/28/19 Procedure(s): CT angio chest Accession Number(s): [id number] cc: Chaparro Mehta ; Jennifer Martínez APR N~ PROCEDURE: CT ANGIO CHEST CLINCIAL INDICATION: Right-sided chest pain, nonsmoker COMPARISON: No exams were available fo r comparison TECHNIQUE: IV Contrast: 70ML OPTIRAY 350 Axial images obtained with sagittal and coronal reformats. All CT scans at the facility use one or more d ose reduction, viz: automated exposure control, ma/kV adjustment per patient size (including targeted exams where dose is matched to indication, i.e. head), or iterative reconstruction technique. FINDINGS: PULMONARY ARTERIES: No pulmonary embolu s evident. AORTA: No acute finding. No thoracic ao rtic aneurysm or dissection evident LUNGS: Unremarkable. No mass or consoli dation. There is a calcified granuloma right upper lobe and right mi ddle lobe as well. There are calcified right hilar nodes. PLEURAL SPACES: No significant effusion . No evidence of pneumothorax. HEART: Unremarkable. Normal heart size. No significant pericardial effusion. MEDIASTINAL AND HILAR STRUCTURES: No me diastinal or hilar mass evident. No dominant adenopathy BONY STRUCTURES: No acute bony abnormal ities apparent. There are mild multilevel degenerate changes mid and lower thoracic spine. LYMPH NODES: No enlarged lymph nodes ev ident. UPPER ABDOMEN: The visualized portions of the liver and spleen appear normal, the patient is post hysterectom y. IMPRESSION: No evidence of pulmonary emboli, eviden ce of old granulomatous disease,, no acute chest pathology note d Dictated by: Dr. Osiel Mehta MD 2018 10:[address] Sarah Mehta MD in [place] 02/28/2019 10:02 Health Concerns Concerns PAIN Advance Directives Advance Directive Response Recorded Date/Time Living Will No February 28, 2019 1 :00am Chief Complaint and Reason for Visit Chief Complaint fu lt wrist pain dept has order; left wrist p ain Chest Pain Reason for Visit Chest pain Obesity (BMI 30-39.9) Encounters Encounter Location(s) Arrival/Admit Date Discharge/Depart Date Provider(s) Departed [facility] Physician December 11, December 11, 2018 Ethan pan Physician/Provi Group-Surgical 2018 8:25am 9:08am MD Baudilio rose Office Suite Visit Discharged [facility] Physician December 11December 11, 2018 Ethan pan Recurring Group-Occupation 2018 1:30pm 1:35pm MD Baudilio al Therapy Discharged [facility] Physician February 28, 2019 February 28, 2019 Peggy ruizaustin S Inpatient Group-Second 1:05am 11:30am MD Andrew Floor Registered [facility] Physician March 01, 2019 Andre S Inpatient Group- 4:56pm MD Andrew Recent Diagnosis Onset Date Chest pain Obesity (BMI 30-39.9) Assessments See care plan goals Functional Status Observation Response Date Recorded Oral Care Ability Independent February 28, 2019 1 :11am Bathing Ability Independent February 28, 2019 1 :11am Eating (Feeding) Ability Independent February 28 019 1:11am Toileting Ability Independent February 28, 2019 1 :11am Ambulation Ability Independent February 28, 2019 1 1:00am Functional status ambulatory December 20, 2018 9:58pm Goals Acute Goals Nursing Diagnosis: Knowledge Deficit D isease/Condition Goal(s): Education of di sease process Instruction(s): Follow provider p radha/instructions (See attached discharge education) Follow/up with primary care provider as instructed in discharge packet Ambulatory Goals Patient has understanding of disease pr ocess. Patient to follow plan of care. Education provided. Immunizations Immunization Event Date Not Given Dose Financial Director Lot Vac cine Reason Number Number Informatio n Statement (VIS) Deta il Flulaval Quad January 28, 3YR+ 2017 Fluzone Quad Januaryo+ 2018 Hepatitis A January 28, Vaccine, adult 2018 dosage Tetanus, November [id number] Diphtheria, 2017 Pertussis (Tdap) Tetanus, November Diphtheria, 2015 Pertussis (Tdap) Mental Status Observation Response Date Recorded Comprehension Ability No Impairment February 28, 2019 11:00am Able to Read Yes February 28, 2019 1 :11am Able to Write Yes February 28, 2019 1 :11am Oral Expression Ability No Impairment February 28 1:11am Medical Equipment No Medical Equipment Information available Insurance Providers Guarantor Talia Collins Address [address] [place] [address] Contact Info. Home Phone: Payer Policy Id Coverage Id Subscriber's Subscriber Id Effective E xpiration Name Date Date Passport [id number] Talia Gee [id number] October 29, Health [employer] [place] 2015 Self Pay Self N/A Plan of Treatment Follow up as ordered by primary care provider 32yo F with chronic L wrist pain -- initial conservative therapy failed to improve her pain, so occupational therapy was started; this has failed to alleviate her pain as well -- will send for MR arthrogram of the wrist -- continue ice, NSAIDs, bracing PRN -- f/u after MRI to discuss the results Disclaimer: Portions of this office visit were transcribed with voice recognition software. Notes are proofread for errors, but minor grammatical or spelling errors may persist. Future Tests Future scheduled test information is unavailable Pending Tests Pending diagnostic test information is unavailable Future Visits Future appointment information is unavailable Referrals to Other Providers Reason for Referral Start Provider Provider Contact Provider Address Referral Date Information Admission to [facility] March [address] Future Procedures Future procedure information is unavailable Future Medications Future medication information is unavailable Patient Instructions DI for Chronic Pain -- Adult DI for Obesity -- Adult DI for Chronic Pain -- Adult DI for Chest Pain Social History Observation Status Date of Observation Not February 27, 2019 Assigned Sex Female Vital Signs Vital Reading Result Reference Range Collection Date/ Time Height 165.1 cm December 11, 2018 8:39am Weight 99.79 kg December 11, 2018 8:39am Heart Rate 66 /min 60-90 December 11, 2018 8:39am BP Systolic 122 mm[Hg] 110-140 December 11, 2018 8:39am BP Diastolic 64 mm[Hg] 60-90 December 11, 2018 8:39am BMI (Body Mass Index) 36.6 kg/m2 December 11, 2018 8:39am Height 165.1 cm February 28 1:05am Weight 107.04 kg February 28 1:05am Body Temperature 97.9 [degF] 97.6-99.6 February 28, 2 019 7:51am Heart Rate 84 /min 60-February 28 7:51am Respiratory rate 18 /min -24 Shubham 1st, 2 019 7:51am Oxygen saturation by 95 % 95-100 February Pulse oximetry 7:51am BP Systolic 117 mm[Hg] 110-140 February 28 7:51am BP Diastolic 73 mm[Hg] 60-90 February 28 7:51am BMI (Body Mass Index) 39.2 kg/m2 February 282018 1:05am
--- NOTE | 2019-03-05 16:45 | Electrocardiograph Report ---
APPROVED REPORT Exam: Resting ECG HR:75 bpm ECG Measurements Heart Rate 75 AXES MI 162 P 61 QRSd 88 QRS 32 QT 398 T47 QTc 444 <Conclusion> Normal sinus rhythm Normal ECG Electronically signed by : Cesar Navarro, 03/05/2019 16:45:33
--- NOTE | 2019-03-09 13:50 | Discharge Summary ---
General - General Admission date:: 02/28/19 Discharge date: 02/28/19 HPI HPI: this wf who has rt scapular pain over the last few days - she also had no fever/rash or trauma- she presented to ed with pressure ant chest pain which was relieved with ntg - pt was admitted for eval and treatment - Hospital Course Hospital Course: [place]: MPRESSION: No evidence of pulmonary emboli, evidence of old granulomatous disease,, no acute chest pathology noted chest x ray: no acute findings pt request to be dc home, orders given per dr heredia. Pt to follow up with pcp call for appointment Objective Vital signs: Temp Pulse Resp BP Pulse Ox 97.9 F 84 18 117/73 95 02/28/19 07:51 02/28/19 07:51 02/28/19 07:51 02/28/19 07:51 02/28/19 07:51 no acute distress - *Routine HEENT Exam Head: Present: normocephalic Eye: Present: PERRL - *Routine Neck Exam Present: supple, full ROM - *Routine Respiratory Exam Present: CTA bilaterally - *Routine Cardiovascular Exam Present: RRR, murmur - *Routine Abdominal Exam Present: soft, normoactive bowel sounds. Absent: tenderness - *Routine Extremities Exam Present: full ROM - *Routine Skin Exam Present: intact - *Routine Neurological Exam Present: alert, oriented X3 - Routine Psychiatric Exam Present: normal affect Results - Additional Comments Dr goodwin seen pt earlier today DS: Diagnosis - Discharge Diagnosis (1) Chest pain Status: Acute (2) Obesity (BMI 30-39.9) Status: Acute (3) HLD (hyperlipidemia) Status: Chronic (4) HTN (hypertension) Status: Chronic Discharge Plan - Patient Discharge Instructions ACTIVITY: Continue current activity DIET: continue same diet Patient Instructions: DI for Obesity -- Adult, DI for Chronic Pain -- Adult, DI for Chest Pain - Follow up Plan Follow up with: Jennifer Martínez APRN [Primary Care Provider] - Disposition: Home, Self-Prison Medications: Home Medications Medication Instructions Recorded Confirmed Type Hydroxychloroquine Sulfate 200 mg PO BID 02/27/19 02/28/19 History [Plaquenil] Pramipexole Di-HCl [Pramipexole 0.25 mg PO HS 02/28/19 02/28/19 History Dihydrochloride] Prescriptions/Medication Reconciliation: Continued Pramipexole Di-HCl [Pramipexole Dihydrochloride] 0.25 mg PO HS Hydroxychloroquine Sulfate [Plaquenil] 200 mg PO BID - Problem Reconciliation Problems Reviewed?: Yes
== END 2019-02-28 11:30 | disposition home or self-care (01) ==
LOC: 2ND 21:32 → ER 21:32 → 2ND 02-28 01:09
PROVIDERS: ADMIT Emergency Medicine; ATTEND Emergency Medicine
CPT/HCPCS: 36415; 71020; 71046; 71275; 80048; 80061; 80076; 83735; 84484; 85025; 85651; 86140; 93005; 96365; 96375; 99284; G0378; J2405; Q9967

== ENCOUNTER → 2019-11-03 17:40 | Outpatient (CLI) | payer OTHER, SELFPAY ==
[2019-11-03 19:45] LABS: 25-OH Vitamin D, Total 30.7 ng/mL (30-100)
[2019-11-03 19:53] LABS: Alanine Aminotransferase 28 U/L (12-78); Albumin Level 4.6 g/dl (3.5-5.0); Albumin/Globulin Ratio 1.8 (1.1-1.8); Alkaline Phosphatase 74 U/L (38-126); Anion Gap 18.3 mEq/L (5-15); Aspartate Amino Transferase 34 U/L (14-36); Bilirubin,Total 0.6 mg/dl (0.2-1.3); Blood Urea Nitrogen 14 mg/dl (7-17); Calcium 9.7 mg/dl (8.4-10.2); Carbon Dioxide 24 mmol/L (22.0-30.0); Chloride 101 mmol/L (98-107); Chol/HDL Ratio 3.8 (1-3.5); Cholesterol 161 mg/dl (140-200); Estimated Glomerular Filt Rate 83 ml/min (>60); GFR (African American) 100 ML/MIN (>60); Globulin 2.5 g/dL (1.3-3.2); Glucose 97 mg/dl (74-100); HDL Cholesterol 42 mg/dl (40-60); Potassium 4.3 mmoL/L (3.5-5.1); Sodium 139 mmol/L (136-145); Total Protein,Serum 7.1 g/dl (6.3-8.2); Triglycerides 162 mg/dl (30-150); VLDL Cholesterol 32 mg/dL (0-40)
[2019-11-03 20:05] LABS: Direct LDL Cholesterol 101.58 mg/dL (100-129)
[2019-11-03 20:09] LABS: T4 (Thyroxine) 8.7 ug/dl (5.53-11.0)
[2019-11-03 20:23] LABS: Thyroid Stimulating Hormone 1.81 uIU/mL (0.465-4.68)
[2019-11-03 20:33] LABS: Basophils % 0.6 % (0.1-2.0); Eosinophils # 0.2 K/mm3 (0.0-0.4); Hemoglobin 15.1 g/dL (12.2-16.2); Lymphocytes # 2.1 K/mm3 (0.7-4.5); Lymphocytes % 29.4 % (10-50); Mean Corpuscular Volume 91.6 fl (81-99); Mean Platelet Volume 9.7 fl (7.4-10.4); Monocytes # 0.5 K/mm3 (0.1-1.0); Monocytes % 6.3 % (1.7-9.3); Neutrophils # 4.5 K/mm3 (1.8-7.8); Neutrophils % 61.7 % (37.0-80.0); Platelet Count 259 K/mm3 (142-424); Red Cell Distribution Width 13.9 % (11.5-17.5); White Blood Count 7.3 K/mm3 (4.8-10.8)
== END ==
PROVIDERS: Visit Provider Nurse Practitioner Family
DX: R53.83 Other fatigue (principal); I10 Essential (primary) hypertension
CPT/HCPCS: 80053; 80061; 82306; 84436; 84443; 85025

== ENCOUNTER 2020-04-02 11:56 | Observation (INO) | payer OTHER, SELFPAY ==
[2020-04-02] VITALS (12 sets, daily range): BP systolic 105–160; BP diastolic 57–92; PULSE 62–91; RESP 16–20; TEMP 36.6–36.8; O2SAT 96–100; BMI 36.6; BMI 36.3
--- NOTE | 2020-04-02 12:05 | HMH.EDGENADL ---
ED Disposition Clinical Impression: Status migrainosus Disposition: Admitted As Inpatient Condition on Discharge: Good Referrals: Carmelo Blandon APRN [Primary Care Provider] - - Critical Care Critical Care Time: No Attestation: On , the high probability of a clinically significant, sudden or life threatening deterioration of the following system(s) required my full and direct attention, intervention and personal management. The time I documented below is in addition to time spent performing reported procedures but includes the following listed in this critical care notation. Medical Decision Making - Medical Records Medical records reviewed: Yes: I reviewed the patient's medical records. - Juan Diego Inquiry Pt receiving controlled substance: No Vital Signs: 04/02/20 11:57 04/02/20 12:10 04/02/20 13:48 Temperature 98 F Temperature Source Oral Pulse Rate [Orthostatic Lying] 77 Pulse Rate [Orthostatic Standing] 91 H Pulse Rate [Radial] 77 69 Respiratory Rate 16 20 Blood Pressure [Orthostatic Lying] 145/84 H Blood Pressure [Orthostatic Standing] 141/92 H Blood Pressure [Right Arm] 145/84 H 143/88 H Blood Pressure Mean [Right Arm] 104 106 Blood Pressure Source [Right Arm] Automatic Cuff Blood Pressure Position [Right Arm] Sitting Sitting 02 Sat by Pulse Oximetry 98 97 Oxygen Delivery Method Room Air 04/02/20 15:00 04/02/20 15:51 Temperature Temperature Source Pulse Rate [Orthostatic Lying] Pulse Rate [Orthostatic Standing] Pulse Rate [Radial] 67 68 Respiratory Rate 18 Blood Pressure [Orthostatic Lying] Blood Pressure [Orthostatic Standing] Blood Pressure [Right Arm] 122/75 138/92 H Blood Pressure Mean [Right Arm] 90 107 Blood Pressure Source [Right Arm] Automatic Cuff Automatic Cuff Blood Pressure Position [Right Arm] Sitting Sitting 02 Sat by Pulse Oximetry 99 100 Oxygen Delivery Method Room Air - Lab Data Lab results reviewed: Yes: I reviewed the patient's lab results. Lab Results 04/02/20 12:10: Urine Color Yellow, Urine Appearance Clear, Urine pH 6.0, Ur Specific [place] 1.015, Urine Protein Negative, Urine Glucose (UA) Negative, Urine Ketones Negative, Urine Blood Negative, Urine Nitrate Negative, Urine Bilirubin Negative, Urine Urobilinogen 0.2, Ur Leukocyte Esterase Negative, Urine RBC None, Urine WBC None, Ur Squamous Epith Cells 5-10, Urine Bacteria None 04/02/20 12:20: WBC 8.9, RBC 5.08, Hgb 15.8, Hct 46.1, MCV 90.8, MCH 31.1, MCHC 34.2, RDW 13.1, Plt Count 290, MPV 7.1 L, Neut % (Auto) 75.6, Lymph % (Auto) 18.9, [place] % (Auto) 4.1, Eos % (Auto) 1.0, Baso % (Auto) 0.3, Neut # (Auto) 6.7, Lymph # (Auto) 1.7, [place] # (Auto) 0.4, Eos # (Auto) 0.1, Baso # (Auto) 0.0 04/02/20 12:20: Sodium 137, Potassium 4.1, Chloride 100, Carbon Dioxide 28, Anion Gap 13.1, BUN 15, Creatinine 0.80, Estimated Creat Clear 156, Estimated GFR 82, Est GFR ( Amer) 99, Glucose 105 H, Calcium 9.7, Total Bilirubin 0.6, AST 27, ALT 29, Alkaline Phosphatase 77, Total Protein 7.9, Albumin 4.7, Globulin 3.2, Albumin/Globulin Ratio 1.5 04/02/20 12:20: Serum HCG, Qual Negative 04/02/20 13:27: Urine HCG, Qual Negative Result diagrams: 04/02/20 12:20 04/02/20 12:20 Orders (Tests/Meds): ED MEDICATIONS Generic Name Dose Route Start Last Admin Trade Name Freq PRN Reason Stop Dose Admin Sodium Chloride 1,000 mls @ 999 mls/hr 04/02/20 13:00 04/02/20 13:07 Sod Chlor 0.9% 1000ml Bag IV 04/02/20 14:00 999 mls/hr .Q1H1M DANDRE Administration Lactated Ringer's 1,000 mls @ 999 mls/hr 04/02/20 16:00 04/02/20 16:03 Lactated Ringer's 1000 Ml Bag IV 04/02/20 17:00 999 mls/hr .Q1H1M DANDRE Administration Discontinued Medications Generic Name Dose Route Start Last Admin Trade Name Freq PRN Reason Stop Dose Admin Acetaminophen 1,000 mg 04/02/20 14:40 04/02/20 14:44 Acetaminophen 500mg Tab PO 04/02/20 14:41 1,000 mg ONCE ONE Administration Acetaminophen/Butalbital
--- NOTE | 2020-04-02 12:56 | CT_ITS ---
PROCEDURE: CT HEAD/BRAIN WO CON CLINICAL INDICATION: lightheaded Headache, lightheaded, dizziness COMPARISON: CT HEADWO CT head/brain wo con from 04/13/2017 TECHNIQUE: Axial images obtained. All CT scans at the facility use one or more dose reduction, viz: automated exposure control, ma/kV adjustment per patient size (including targeted exams where dose is matched to indication, i.e. head), or iterative reconstruction technique. FINDINGS: No midline shift, mass effect, intracranial hemorrhage, hydrocephalus, or extra-axial fluid collection is evident. The calvarium has an unremarkable appearance. No mastoid effusion. No sinus air-fluid level. IMPRESSION: No acute intracranial finding Dictated by: Laci Cisse MD 04/03/2020 07:21 Laci Cisse MD in [place] 04/03/2020 07:21
--- NOTE | 2020-04-02 13:13 | ECG_ITS ---
APPROVED REPORT Exam: Resting ECG HR:67 bpm ECG Measurements Heart Rate 67 AXES PA 152 P 48 QRSd 88 QRS 34 QT 398 T 27 QTc 420 Conclusion Normal sinus rhythm Normal ECG Electronically signed by : Cesar Navarro, 04/02/2020 17:40:41
[2020-04-02 13:21] LABS: Basophils % 0.3 % (0.1-2.0); Eosinophils # 0.1 K/mm3 (0.0-0.4); Hematocrit 46.1 % (37.0-47.0); Hemoglobin 15.8 g/dL (12.2-16.2); Lymphocytes # 1.7 K/mm3 (0.7-4.5); Lymphocytes % 18.9 % (10-50); Mean Corpuscular HGB Conc 34.2 g/dL (31.8-35.4); Mean Corpuscular Hemoglobin 31.1 pg (27.0-31.2); Mean Corpuscular Volume 90.8 fl (81-99); Mean Platelet Volume 7.1 fl (7.4-10.4); Monocytes # 0.4 K/mm3 (0.1-1.0); Monocytes % 4.1 % (1.7-9.3); Neutrophils # 6.7 K/mm3 (1.8-7.8); Neutrophils % 75.6 % (37.0-80.0); Platelet Count 290 K/mm3 (142-424); Red Blood Count 5.08 M/mm3 (4.20-5.40); Red Cell Distribution Width 13.1 % (11.5-17.5); White Blood Count 8.9 K/mm3 (4.8-10.8)
--- NOTE | 2020-04-02 13:22 | PC.NURSE ---
Patient taken to restroom
[2020-04-02 13:27] LABS: Alanine Aminotransferase 29 U/L (12-78); Albumin Level 4.7 g/dl (3.5-5.0); Albumin/Globulin Ratio 1.5 (1.1-1.8); Alkaline Phosphatase 77 U/L (38-126); Anion Gap 13.1 mEq/L (5-15); Aspartate Amino Transferase 27 U/L (14-36); Bilirubin,Total 0.6 mg/dl (0.2-1.3); Blood Urea Nitrogen 15 mg/dl (7-17); Calcium 9.7 mg/dl (8.4-10.2); Carbon Dioxide 28 mmol/L (22.0-30.0); Chloride 100 mmol/L (98-107); Creatinine Clearance Estimated 156 mL/min (50-200); Estimated Glomerular Filt Rate 82 ml/min (>60); GFR (African American) 99 ML/MIN (>60); Globulin 3.2 g/dL (1.3-3.2); Glucose 105 mg/dl (74-100); Potassium 4.1 mmoL/L (3.5-5.1); Sodium 137 mmol/L (136-145); Total Protein,Serum 7.9 g/dl (6.3-8.2)
[2020-04-02 13:29] LABS: HCG Qualitative, Serum Negative (Negative)
[2020-04-02 13:34] LABS: Microscopic, Urine URINE MICROSCOPIC (MICROSCOPIC)
[2020-04-02 13:37] LABS: Appearance,Urine CLEAR (Clear); Bilirubin,Urine Negative (Negative); Blood, Urine Negative (Negative); Color,Urine YELLOW (Yellow); Glucose,Urine (UA) Negative (Negative); Ketones,Urine Negative (Negative); Leukocyte Esterase,Urine Negative (Negative); Nitrate,Urine Negative (Negative); Protein,Urine Negative (Negative); Specific Gravity, Urine 1.015 (1.005-1.030); Urobilinogen,Urine 0.2 EU/dl (0.2)
[2020-04-02 13:43] LABS: Urine Pregnancy, HCG Qual. Negative (Negative)
--- NOTE | 2020-04-02 14:30 | PC.NURSE ---
RESTING QUIETLY CONT TO C/O FEELING LIGHTHEAEDED
--- NOTE | 2020-04-02 15:30 | PC.NURSE ---
UPDATED ON PLAN OF CARE
--- NOTE | 2020-04-02 17:07 | PC.NURSE ---
Pt taken to restroom
[2020-04-02 17:43] LABS: Coronavirus 19 IgG Antibody Negative (Negative); Coronavirus 19 IgM Antibody Negative (Negative)
--- NOTE | 2020-04-02 18:28 | PC.NURSE ---
REPORT TO JOYCELYN POSADAS
[2020-04-03 04:00] VITALS: BP 108/64; PULSE 82; RESP 16; TEMP 36.5; O2SAT 97
--- NOTE | 2020-04-03 04:30 | PC.NURSE ---
pt slept through shift. iv infusing per order. no complaints of pain, nausea, or dizziness voiced. pt independent with ambulation. vss. call light in reach.
[2020-04-03 05:30] VITALS: BMI 36.7
[2020-04-03 07:12] LABS: Basophils % 0.4 % (0.1-2.0); Monocytes # 0.3 K/mm3 (0.1-1.0); Neutrophils # 4.7 K/mm3 (1.8-7.8); Red Cell Distribution Width 13.3 % (11.5-17.5)
[2020-04-03 07:32] LABS: Blood Urea Nitrogen 11 mg/dl (7-17); Carbon Dioxide 28 mmol/L (22.0-30.0); Chloride 104 mmol/L (98-107); Creatinine Clearance Estimated 156 mL/min (50-200); Estimated Glomerular Filt Rate 82 ml/min (>60); GFR (African American) 99 ML/MIN (>60); Glucose 112 mg/dl (74-100); Sodium 137 mmol/L (136-145)
[2020-04-03 07:34] LABS: Calcium 8.7 mg/dl (8.4-10.2)
--- NOTE | 2020-04-03 07:45 | HMH.PHAVTE ---
[facility] VTE Monitoring - Patient Demographics Admission date: 04/02/20 Report Date: 04/03/20 Time: 07:45 Allergies/Adverse Reactions: Patient Allergies No Known Allergies Allergy (Verified 01/05/20 15:01) Height: 1.65 m Weight: 99.989 kg Patient Problems: Current Active Problems Status migrainosus (Acute) - VTE Risk Labs: VTE Related Lab Results Hgb 15.8 g/dL (12.2-16.2) 04/02/20 12:20 Hct 46.1 % (37.0-47.0) 04/02/20 12:20 Plt Count 290 K/mm3 (142-424) 04/02/20 12:20 BUN 11 mg/dl (7-17) D 04/03/20 06:21 Creatinine 0.80 mg/dl (0.52-1.04) 04/03/20 06:21 Estimated Creat Clear 156 mL/min (50-200) 04/03/20 06:21 VTE Risk Level: Very Low Risk - Prophylaxis VTE Prophylaxis Ordered?: Yes Types of VTE Prophylaxis: TEDS Knee High Location of Applied Device: Bilateral Lower Extremeties
[2020-04-03 07:50] LABS: Eosinophils # 0.1 K/mm3 (0.0-0.4); Eosinophils % 1.8 % (0.1-12.0); Hematocrit 40.8 % (37.0-47.0); Lymphocytes # 2.7 K/mm3 (0.7-4.5); Mean Corpuscular HGB Conc 33.5 g/dL (31.8-35.4); Mean Corpuscular Hemoglobin 30.7 pg (27.0-31.2); Mean Corpuscular Volume 91.9 fl (81-99); Mean Platelet Volume 7.5 fl (7.4-10.4); Monocytes % 4.3 % (1.7-9.3); Neutrophils % 59.5 % (37.0-80.0); Platelet Count 271 K/mm3 (142-424); Red Blood Count 4.44 M/mm3 (4.20-5.40); White Blood Count 7.9 K/mm3 (4.8-10.8)
[2020-04-03 07:51] LABS: Hemoglobin 13.7 g/dL (12.2-16.2)
[2020-04-03 08:00] VITALS: BP 110/70; PULSE 81; RESP 20; TEMP 36.5; O2SAT 99
[2020-04-03 10:37] LABS: Hemoglobin A1C 4.9 % (4.0-6.0)
--- NOTE | 2020-04-03 14:25 | HMH.HPDC ---
General - General Admission date:: 04/02/20 Discharge date: 04/03/20 *Admission Date: 04/02/20 *Chief complaint: headache *History of present illness: 34-year-old female presented to ed with a migraine with a history of rheumatoid arthritis and lupus with a strong family history for CVAs presenting with a 1 day history of acute onset lightheadedness, gait disturbance and nausea and vomiting with occasional. Patient states this is like her normal headache. Patient states she sees neurology in and has appointment on to have injections to help prevent headaches. Ptient states it has been 8 months since her last injection. Paatient states no fever, chills, headache, cough, shortness of breath, focal weakness, slurred speech, palpitations, chest pain. Pateint admitted for iv fluids and monitoring. [facility] History I have reviewed the patient's past medical history: Yes Medical History: Reports:: Hypertension, Migraine Denies:: Cancer, Diabetes Mellitus Type 1, Diabetes Mellitus Type 2, Internal Pacemaker, MRSA, Seizures *Have you ever received a pneumonia vaccine?: No *Have you received a flu vaccine this season?: Yes Other Medical History: Reports: Arthritis (Rheumatoid arthritis), Other. Denies: Blood Transfusion Reaction Other Surgeries: Yes: Appendectomy, Cholecystectomy, Tubal Ligation, Other. No: Pacemaker Amputation: No Fractures: No - *Social History Last grade of school completed: High school graduate Smoking Status: Never smoker Alcohol Intake: never Substance Use Type: denies use *Occupational Status:: employed Housing: house Household Members: family *Travel in the last 8 weeks: None Family Hx:: Unable to obtain Review of Systems - Review of Systems Review of systems:: pertinent systems reviewed and negative unless documented below - Constitutional Denies body ache(s), Denies fatigue, Denies lack of energy, Denies weight loss - Eyes Denies change in vision, Denies bulging eyes - ENT Reports dizziness, Reports headache(s), Denies bleeding gums - *Cardiovascular Denies chest pain at rest - *Respiratory Denies chest congestion - *Gastrointestinal Denies bloating - *Genitourinary Denies side pain - *Musculoskeletal Denies joint pain - Integumentary/Breasts Denies dry skin, Denies rash - *Neurologic Reports dizziness, Reports headache(s), Denies abnormal walking, Denies lack of coordination, Denies memory loss - Psychiatric Denies anxiety - Endocrine Denies excessive sweating - Hematologic/Lymphatic Denies easy bruising - Allergic/Immunologic Denies itchy eyes Exam Vital signs and Labs for Last 24 Hours: Temp Pulse Resp BP Pulse Ox 97.7 F 81 20 110/70 99 04/03/20 08:00 04/03/20 08:00 04/03/20 08:00 04/03/20 08:00 04/03/20 08:00 Laboratory Results - last 24 hr 04/02/20 13:00: SARS-CoV-2 IgG Ab (Rapid) Negative, SARS-CoV-2 IgM Ab (Rapid) Negative 04/03/20 06:21: WBC 7.9, RBC 4.44, Hgb 13.7 D, Hct 40.8, MCV 91.9, MCH 30.7, MCHC 33.5, RDW 13.3, Plt Count 271, MPV 7.5, Neut % (Auto) 59.5, Lymph % (Auto) 34.0, Kinney % (Auto) 4.3, Eos % (Auto) 1.8, Baso % (Auto) 0.4, Neut # (Auto) 4.7, Lymph # (Auto) 2.7, Kinney # (Auto) 0.3, Eos # (Auto) 0.1, Baso # (Auto) 0.0 04/03/20 06:21: Sodium 137, Potassium 4.0, Chloride 104, Carbon Dioxide 28, Anion Gap 9.0, BUN 11 D, Creatinine 0.80, Estimated Creat Clear 156, Estimated GFR 82, Est GFR ( Amer) 99, Glucose 112 H, Calcium 8.7 D 04/03/20 06:21: Hemoglobin A1c 4.9 I & O for Last 24 hours: Intake & Output 04/01/20 04/02/20 04/03/20 04/04/20 11:59 11:59 11:59 11:59 Intake Total 1499 / 1499 Output Total 300 / 300 Balance 1199 / 1199 Weight 220 lb 220 lb 7 oz - *Routine HEENT Exam Head: Present: normocephalic Eye: Present: PERRL ENT: Present: mucous membranes moist - *Routine Neck Exam Present: supple. Absent: lymphadenopathy - *Routine Respiratory Exam Present: CTA bilaterally -
== END 2020-04-03 14:50 | disposition home or self-care (01) ==
LOC: ER 17:15 → 2ND 19:02
PROVIDERS: Admitting Provider Family Medicine; Emergency Provider Physician Assistant; PCP Nurse Practitioner Family; Visit Provider Family Medicine
DX: G43.901 Migraine, unspecified, not intractable, with status migrainosus (principal); I10 Essential (primary) hypertension; M06.9 Rheumatoid arthritis, unspecified; Z79.899 Other long term (current) drug therapy
CPT/HCPCS: 36415; 70450; 80048; 80053; 81001; 81025; 83036; 84703; 85025; 86328; 93005; 96365; 96367; 96375; 99284; G0378; J2405

== ENCOUNTER → 2020-06-08 11:47 | Outpatient (CLI) | payer OTHER, SELFPAY ==
--- NOTE | 2020-06-08 11:51 | XR_ITS ---
PROCEDURE: XR CLAVICLE LT CLINICAL INDICATION: pain COMPARISON: No exams were available for comparison FINDINGS: No fracture or dislocation. No lytic or blastic change. There is normal mineralization. The joint spaces are well-preserved. No significant degenerative/arthritic changes. No erosive changes evident. Other findings:None. IMPRESSION: No acute findings. Dictated by: Laci Cisse MD 06/08/2020 16:55 Laci Cisse MD in [place] 06/08/2020 16:55
== END ==
PROVIDERS: PCP Nurse Practitioner Family; Visit Provider Nurse Practitioner Family
DX: M89.8X1 Other specified disorders of bone, shoulder (principal)
CPT/HCPCS: 73000

== ENCOUNTER → 2020-08-31 10:57 | Outpatient (CLI) | payer OTHER, SELFPAY ==
--- NOTE | 2020-08-31 11:00 | XR_ITS ---
PROCEDURE: XR FOOT WT BEARING RT 3V CLINICAL INDICATION: pain COMPARISON: CR FTR3 FOOT-RT-3 VIEWS from 06/13/2014 FINDINGS: No fracture or dislocation. No lytic or blastic change. There is normal mineralization. Minimal osteoarthritic change at the 1st metatarsophalangeal joint with prominent spur involving the anterior distal aspect of the 1st metatarsal. There is a small calcaneal spur and small partially calcified enthesophyte at the Achilles insertion. Borderline pes planus. Other findings:None. IMPRESSION: Osteoarthritic change 1st MTP joint with mildly prominent spur at the distal 1st metatarsal Dictated by: Laci Cisse MD 08/31/2020 12:25 Laci Cisse MD in [place] 08/31/2020 12:25
--- NOTE | 2020-08-31 11:00 | XR_ITS ---
PROCEDURE: XR FOOT WT BEARING LT 3V CLINICAL INDICATION: pain A COMPARISON: CR FTR3 FOOT-RT-3 VIEWS from 06/13/2014 FINDINGS: No fracture or dislocation. No lytic or blastic change. There is normal mineralization. Mild osteoarthritic changes 1st MTP joint with small spur along the distal and anterior aspect of the 1st metatarsal. Mild osteoarthritis with spurring at the talonavicular joint. Borderline pes planus. Small calcaneal spur and Achilles enthesophyte. Small calcific density is present along the anterior aspect of the tarsal metatarsal junction and may be due to ununited ossicle. Other findings:None. IMPRESSION: Degenerative changes as described above. Dictated by: Laci Cisse MD 08/31/2020 12:28 Laci Cisse MD in [place] 08/31/2020 12:28
== END ==
PROVIDERS: PCP Nurse Practitioner Family; Visit Provider Nurse Practitioner
DX: M21.619 Bunion of unspecified foot (principal); M79.672 Pain in left foot; M79.671 Pain in right foot
CPT/HCPCS: 73630

== ENCOUNTER → 2021-02-28 16:58 | Outpatient (CLI) | payer OTHER, SELFPAY ==
[2021-02-28 17:00] LABS: Adenovirus F 40/41, stool Not Detected (NotDetected); Campylobacter Not Detected (NotDetected); Clostridium Difficile A/B, PCR Not Detected (NotDetected); Cryptosporidium Not Detected (NotDetected); Cyclospora Cayetanesis Not Detected (NotDetected); Entamoeba histolytica Not Detected (NotDetected); Enteroaggregative E coli Not Detected (NotDetected); Enteropathogenic E coli Not Detected (NotDetected); Enterotoxigenic E coli Not Detected (NotDetected); Giardia lamblia Not Detected (NotDetected); Norovirus Not Detected (NotDetected); Plesimonas Shigalloides, PCR Not Detected (NotDetected); Rotavirus A Not Detected (NotDetected); Salmonella, PCR Not Detected (NotDetected); Sapovirus Not Detected (NotDetected); Shiga-like toxin E coli Not Detected (NotDetected); Shigella Enterovasive E coli Not Detected (NotDetected); Vibrio Cholerae Not Detected (NotDetected); Vibrio, PCR Not Detected (NotDetected); Yersinia Entercolitica, PCR Not Detected (NotDetected)
[2021-03-01 00:25] LABS: Astrovirus Detected (NotDetected)
== END ==
PROVIDERS: Visit Provider Nurse Practitioner Family
DX: R11.10 Vomiting, unspecified (principal); R19.7 Diarrhea, unspecified; A08.32 Astrovirus enteritis
CPT/HCPCS: 87506

== ENCOUNTER → 2021-03-19 20:09 | Outpatient (CLI) | payer OTHER, SELFPAY | PROVIDERS: Visit Provider Nurse Practitioner Family | DX: Z20.822 Contact with and (suspected) exposure to COVID-19 (principal); J02.9 Acute pharyngitis, unspecified | CPT/HCPCS: C9803; U0003; U0005 ==

== ENCOUNTER → 2021-04-16 12:37 | Outpatient (CLI) | payer OTHER, SELFPAY | PROVIDERS: Visit Provider Nurse Practitioner | DX: U07.1 COVID-19 (principal) | CPT/HCPCS: C9803; U0003; U0005 ==

== ENCOUNTER 2021-04-16 12:44 | Emergency (ER) | payer OTHER, SELFPAY ==
[2021-04-16 13:05] VITALS: BP 146/74; PULSE 115; RESP 18; TEMP 37.7; O2SAT 98; BMI 34.9
[2021-04-16 13:27] LABS: UTC Influenza A Antigen Negative (Negative); UTC Influenza B Antigen Negative (Negative)
--- NOTE | 2021-04-16 13:52 | HMH.EDUTC ---
[facility] [place] Disposition Clinical Impression: Viral syndrome Disposition: Home, Self-Care Condition on Discharge: Good Instructions: DI for Viral Syndrome Additional Instructions: *Monitor Temp, Over the counter Motrin or Tylenol as directed/as needed Tylenol every 4 hours and Motrin every 6 hours (as long as your family doctor has told you that you can take it) for fever or pain. and straight to ER if unable to lower temp less than 101.0 after medication given *Warm salt water gargles may help to soothe the throat *Throat Lozenges *Warm fluids like tea with honey may help to soothe the throat *Sleep elevated *Humidifier/Vaporizer Follow up IMMEDIATELY for new or worsening symptoms or no Noticeable improvement over the next 48-72 hours. 911 for difficulty breathing or swallowing You were tested for today for COVID19 your test result should be back in the next 24-48 hours, you check your results on the [facility] [employer] health portal if you have trouble logging on you may call for assistance to help you set up an account to see your results You was given a handout with instructions for Self Quarantine and Self isolation for while you wait on test results and what to do if they are positive If you are positive the Health Dept will be contacting you also Make sure to take your Vitamins Vit. C Vit D and Zinc if you can take them Referrals: Carmelo Blandon APRN [Primary Care Provider] - As needed Forms: Work/School Release Time of Disposition: 13:59 Medical Decision Making - Juan Diego Inquiry Pt receiving controlled substance: No Juan Diego was queried for this patient: No Vital Signs: 04/16/21 13:05 Temperature 99.8 F H Temperature Source Oral Pulse Rate [Right Brachial] 115 H Respiratory Rate 18 Blood Pressure [Right Arm] 146/74 H Blood Pressure Mean [Right Arm] 98 Blood Pressure Source [Right Arm] Automatic Cuff Blood Pressure Position [Right Arm] Sitting 02 Sat by Pulse Oximetry 98 Oxygen Delivery Method Room Air - Lab Data Lab results reviewed: Yes: I reviewed the patient's lab results. Lab Results 04/16/21 13:17: Influenza Type A Ag Negative, Influenza Type B Ag Negative [facility] [place] HPI - General Stated complaint: flu test, headache,fever Time Seen by Provider: 04/16/21 13:52 Mode of Arrival: Ambulatory Source of Information: Patient Limitations: No Limitations Description of Symptoms (Recalled from Triage Doc. by RN): PATIENT C/O FEVER, HEADACHE, AND CHILLS SINCE YESTERDAY HEENT Symptoms (Recalled from RN notes): Yes Resp Symptoms (Recalled from RN notes): No Skin Symptoms (Recalled from RN notes): No MS Symptoms (Recalled from RN notes): No Functional Status (Recalled from RN notes): WNL - History of Present Illness Provider Complaint: Patient states that for the last couple of days she has not felt well States that she is having flu like symptoms and just was tested for COVID and awaiting the results so she came in to get checked for the flu States that she has been having fever, chills, headache and body aches Denies SOA - Related Data Home Medications Medication Instructions Recorded Confirmed tizanidine 4 mg capsule 4 mg PO HS 11/03/19 03/19/21 sumatriptan succinate 100 mg tablet See Rx Instructions PO .COMPLEX 07/27/20 03/19/21 hydroxychloroquine 200 mg tablet 200 mg PO tab 08/31/20 03/19/21 Previous Rx's Medication Instructions Recorded meclizine 25 mg tablet 25 mg PO QID PRN #30 tab 04/10/20 cyclobenzaprine 5 mg tablet 5 mg PO BID PRN #20 tab 12/12/20 meloxicam 7.5 mg tablet 7.5 mg PO DAILY 30 Days #30 tab 12/12/20 montelukast 10 mg tablet 10 mg PO DAILY #90 tab 02/20/21 Allergies Allergy/AdvReac Type Severity Reaction Status Date / Time No Known Allergies Allergy Verified 03/19/21 17:30 - Worker's Comp Is this a Worker's Comp case?: No H History - Hepatitis A Screen Drug use history?: No High risk sexual behaviors?: No History of sexually transmitted infection?: No Cur
[2021-04-16 14:00] VITALS: BP 146/74; PULSE 115; RESP 18; TEMP 37.7; O2SAT 98
== END 2021-04-16 14:04 | disposition home or self-care (01) ==
PROVIDERS: Emergency Provider Nurse Practitioner; PCP Nurse Practitioner Family
DX: U07.1 COVID-19 (principal); E78.5 Hyperlipidemia, unspecified; I10 Essential (primary) hypertension
CPT/HCPCS: 87804; 99202; G0463

== ENCOUNTER 2021-12-13 18:39 | Emergency (ER) | payer OTHER, SELFPAY ==
[2021-12-13] VITALS (8 sets, daily range): BP systolic 121–151; BP diastolic 70–87; PULSE 69–90; RESP 16–21; TEMP 36.6–36.8; O2SAT 96–99; BMI 31.5
--- NOTE | 2021-12-13 18:39 | ECG_ITS ---
APPROVED REPORT Exam: Resting ECG HR:90 bpm ECG Measurements Heart Rate 90 AXES NM 144 P 65 QRSd 74 QRS 59 QT 335 T 66 QTc 383 Conclusion SINUS RHYTHM NORMAL ECG UNCONFIRMED REPORT Electronically signed by : Cesar Navarro MD 12/15/2021 09:54:21
--- NOTE | 2021-12-13 18:50 | XR_ITS ---
PROCEDURE INFORMATION: Exam: XR Chest Exam date and time: 12/13/21 07:10 PM Age: 35 years old Clinical indication: Pain; Angina pectoris; Additional info: Chest pain TECHNIQUE: Imaging protocol: Radiologic exam of the chest. Views: 1 view. COMPARISON: CR XR CHEST 2V 02/27/19 09:56 PM FINDINGS: Lungs: Unremarkable. No consolidation. Pleural spaces: Unremarkable. No pleural effusion. No pneumothorax. Heart/Mediastinum: Unremarkable. No cardiomegaly. Bones/joints: Unremarkable. IMPRESSION: No acute findings.
--- NOTE | 2021-12-13 18:58 | PC.NURSE ---
EKG obtained, Attempting to get iv Access
[2021-12-13 19:13] LABS: Basophils # 0.3 K/mm3 (0-0.2); Basophils % 1.5 % (0.1-2.0); Eosinophils # 0.1 K/mm3 (0.0-0.4); Eosinophils % 0.7 % (0.1-12.0); Hematocrit 46.2 % (37.0-47.0); Hemoglobin 15.5 g/dL (12.2-16.2); Lymphocytes # 3.7 K/mm3 (0.7-4.5); Lymphocytes % 23.2 % (10-50); Mean Corpuscular HGB Conc 33.6 g/dL (31.8-35.4); Mean Corpuscular Hemoglobin 31.4 pg (27.0-31.2); Mean Corpuscular Volume 93.6 fl (81-99); Mean Platelet Volume 7.8 fl (7.4-10.4); Monocytes # 0.8 K/mm3 (0.1-1.0); Neutrophils # 11.2 K/mm3 (1.8-7.8); Neutrophils % 69.5 % (37.0-80.0); Platelet Count 312 K/mm3 (142-424); Red Blood Count 4.94 M/mm3 (4.20-5.40); Red Cell Distribution Width 13.2 % (11.5-17.5); White Blood Count 16.1 K/mm3 (4.8-10.8)
[2021-12-13 19:15] LABS: MANUAL DIFFERENTIAL MANUAL DIFFERENTIAL (MANUAL DIFF)
[2021-12-13 19:26] LABS: Chloride 102 mmol/L (98-107)
[2021-12-13 19:27] LABS: Potassium 3.8 mmoL/L (3.5-5.1); Sodium 140 mmol/L (136-145)
[2021-12-13 19:29] LABS: Blood Urea Nitrogen 15 mg/dl (7-17); Creatinine Clearance Estimated 177 mL/min (50-200); Estimated Glomerular Filt Rate 95 ml/min (>60); GFR (African American) 115 ML/MIN (>60); Lymphocytes % 35 % (10-50); Monocytes % 3 % (2-9); Neutrophils % 62 % (42-76); Total Cells Counted 100
[2021-12-13 19:30] LABS: Anion Gap 12.8 mEq/L (5-15); Calcium 9.2 mg/dl (8.4-10.2); Carbon Dioxide 29 mmol/L (22.0-30.0); Glucose 116 mg/dl (74-100); Platelet Estimate Normal; RBC Morphology Normal
--- NOTE | 2021-12-13 19:40 | PC.NURSE ---
shift change report given to sindyrn
[2021-12-13 19:46] LABS: Troponin I < 0.01 ng/ml (0.00-0.034)
--- NOTE | 2021-12-13 20:32 | HMH.EDCP ---
Discharge Plan Disposition Patient Disposition: Home, Self-Care Chief Complaint: Chest Pain Prescriptions Prescriptions: No Action methylprednisolone [Medrol (Sav)] 4 mg tablets,dose pack See Rx Instructions PO PER PKG DIR Qty: 21 0RF Rx Instructions: PO PER PKG DIR Antivert 50 mg tablet 50 mg PO BID PRN (Reason: dizziness) Qty: 60 5RF hydroxychloroquine 200 mg tablet 200 mg PO meloxicam 7.5 mg tablet 7.5 mg PO DAILY MDD once daily 30 Days Qty: 30 0RF montelukast 10 mg tablet See Rx Instructions .ROUTE .COMPLEX Qty: 90 3RF Dose Instruction: TAKE ONE TABLET BY MOUTH EVERY DAY Rx Instructions: TAKE ONE TABLET BY MOUTH EVERY DAY Referrals Follow up/Referrals: Provider,Referral, MD [Primary Care Provider] - See instructions Clinical Impressions Clinical Impression: Chest pain, Atypical chest pain Instructions Patient Instructions: DI for Atypical Chest Pain Discharge ED Provider: Andre Morales Chest Pain HPI General Chief Complaint: Chest Pain Stated Complaint: Chest Pain Time Seen by Provider: 12/13/21 20:32 Mode of Arrival: Ambulatory Source of Information: Patient and Medical Record Limitations: No Limitations Description of Symptoms (Recalled from ER Triage Doc. by RN): Pt reports having chest heaviness midsternal area that began today. Pt reports she feels like it is hard to take a deep breath. Pt reports she has been having dizziness for approx 1 week, was seen by PCP earlier this week told she had fluid on her ear and started on steriods. Pt reports her bp was low yesterday when her brother checked it. History of Present Illness MD complaint: chest pain indicative of cardiac Onset (ago): hour(s) Duration: intermittent Activity at onset: during rest Pain location: substernal Severity: moderate Quality: heaviness Pain radiation: none Associated symptoms: dyspnea Risk Factors for CAD: Hypertension and Family Hx of CAD Treatments prior to or on arrival for Cardiac Chest Pain: none LACHELLE Score for Non-Stemi Age of Patient: 30-39 years old Heart Rate: 50-69 bpm Systolic Blood Pressure: 120-139 mmhg Serum Creatinine: 0.40-0.79 mg/dl CHF Killip Class: I-No CHF Other Risk Factors: None Non-Stemi Risk Score: 49 Related Data On Oral Contraceptives: No Home Medications Medication Instructions Recorded Confirmed hydroxychloroquine 200 mg tablet 200 mg PO 08/31/20 12/07/21 Previous Rx's Medication Instructions Recorded meloxicam 7.5 mg tablet 7.5 mg PO DAILY pain 30 days #30 11/16/21 tabs montelukast 10 mg tablet See Rx Instructions .Route 11/28/21 .COMPLEX #90 tabs meclizine 50 mg tablet (Antivert) 50 mg PO BID PRN dizziness #60 tabs 12/07/21 methylprednisolone 4 mg tablets in See Rx Instructions PO PER PKG DIR 12/07/21 a dose pack (Medrol (Sav)) #21 tabs Allergies Allergy/AdvReac Type Severity Reaction Status Date / Time No Known Allergies [facility]21 [facility] Medical History (Updated 12/13/21 @ 22:17 by Andre Morales MD) Edema HLD (hyperlipidemia) HTN (hypertension) JACQUIE on CPAP Surgical History (Updated 12/13/21 @ 20:58 by Juanita Deleon RN) Hx of tubal ligation Social History Smoking Status: Never smoker alcohol intake: never substance use type: denies use current occupational status: other Travel in the last 8 weeks: None household members: family housing: house current occupation: [employer] current occupational exposures/hazards: No caffeine: No ROS Obtained: Yes All systems reviewed & no additional complaints except as documented Constitutional Constitutional: Denies fever(s) Eyes Eyes: Denies diplopia ENT Ears, Nose, Mouth, and Throat: Denies nasal congestion Cardiovascular Cardiovascular: Reports as per HPI and Reports chest pain with activity Respiratory Respiratory: Denies c
--- NOTE | 2021-12-13 20:44 | CT_ITS ---
PROCEDURE INFORMATION: Exam: CTA Chest With Contrast Exam date and time: 12/13/21 09:00 PM Age: 35 years old Clinical indication: Shortness of breath; Sternal or substernal pain; Additional info: Sob/chest pain TECHNIQUE: Imaging protocol: Computed tomographic angiography of the chest with contrast. 3D rendering (Not supervised by radiologist): MIP and/or 3D reconstructed images were created by the technologist. Radiation optimization: All CT scans at this facility use at least one of these dose optimization techniques: automated exposure control; mA and/or kV adjustment per patient size (includes targeted exams where dose is matched to clinical indication); or iterative reconstruction. Contrast material: ISOVUE; Contrast volume: 70 ml; Contrast route: INTRAVENOUS (IV); COMPARISON: CT ANGIO CHEST 02/28/19 09:30 AM FINDINGS: Pulmonary arteries: Normal. No pulmonary emboli. Aorta: Unremarkable. No aortic aneurysm. No aortic dissection. Lungs: Unremarkable. No consolidation. No masses. Pleural spaces: Unremarkable. No pneumothorax. No pleural effusion. Heart: Unremarkable. No cardiomegaly. No pericardial effusion. Lymph nodes: Unremarkable. No enlarged lymph nodes. Gallbladder and bile ducts: Cholecystectomy. Bones/joints: Unremarkable. No acute fracture. Soft tissues: Unremarkable. IMPRESSION: No CT evidence of pulmonary embolus.
--- NOTE | 2021-12-13 21:32 | PC.NURSE ---
Second trop drawn and sent to lab
[2021-12-13 21:59] LABS: Troponin I < 0.01 ng/ml (0.00-0.034)
--- NOTE | 2021-12-13 22:13 | PC.NURSE ---
at updating pt on results
--- NOTE | 2021-12-13 22:15 | PC.NURSE ---
Dr. Morales at bedside discussing results and POC with pt and family
== END 2021-12-13 22:18 | disposition home or self-care (01) ==
PROVIDERS: Emergency Medicine; Emergency Provider Emergency Medicine
DX: R07.89 Other chest pain (principal); R42 Dizziness and giddiness
CPT/HCPCS: 71045; 71275; 80048; 84484; 85007; 85025; 93005; 96374; 96375; 99285; Q9967

== ENCOUNTER → 2021-12-25 15:30 | Outpatient (CLI) | payer OTHER, SELFPAY ==
--- NOTE | 2021-12-25 15:30 | US_ITS ---
FINAL REPORT CLINICAL HISTORY: globus /fullness to palpation, hard to swallow FINDINGS: THYROID ULTRASOUND Thyroid gland is normal size. The parenchyma shows normal echogenicity. No dominant mass is seen. IMPRESSION: Unremarkable thyroid evaluation Reviewed, Interpreted and Dictated by Bienvenido Galarza MD Transcribed by Servando Villegas Authenticated and [facility]
== END ==
PROVIDERS: PCP Family Medicine; Visit Provider Family Medicine
DX: E07.89 Other specified disorders of thyroid (principal)
CPT/HCPCS: 76536

== ENCOUNTER 2022-02-06 14:56 | Emergency (ER) | payer OTHER, SELFPAY ==
--- NOTE | 2022-02-06 16:27 | EXP.UTC ---
Discharge Plan Disposition Patient Disposition: Home, Self-Care Condition: Good Prescriptions Prescriptions: New benzonatate [benzonatate] 100 mg capsule 100 mg PO TIDP PRN (Reason: Cough) Qty: 30 0RF ondansetron 4 mg Tablet,Disintegrating 4 mg PO Q8H PRN (Reason: Nausea) Qty: 12 0RF No Action Antivert 50 mg tablet 50 mg PO BID PRN (Reason: dizziness) Qty: 60 5RF lorazepam 2 mg tablet 2 mg PO DAILY PRN (Reason: panic level anxiety) Qty: 20 0RF Rx Instructions: use sparingly meloxicam 7.5 mg tablet 7.5 mg PO DAILY MDD once daily 30 Days Qty: 30 4RF hydroxychloroquine 200 mg tablet 200 mg PO montelukast 10 mg tablet See Rx Instructions .ROUTE .COMPLEX Qty: 90 3RF Dose Instruction: TAKE ONE TABLET BY MOUTH EVERY DAY Rx Instructions: TAKE ONE TABLET BY MOUTH EVERY DAY Referrals Follow up/Referrals: Fuad Dawson MD [Primary Care Provider] - See instructions Activity Restrictions/Add. Instructions Additional Instructions/Restrictions: Drink plenty of fluids. Take tylenol or ibuprofen for pain or fever. Take the medications as directed. Follow up with your regular doctor. GO TO THE ER FOR ANY WORSENING SYMPTOMS Clinical Impressions Clinical Impression: Viral syndrome Stand Alone Forms Stand Alone Forms: Work/School Release Instructions Patient Instructions: DI for Viral Syndrome Discharge ED Provider: Deven Meng [facility] General Stated complaint: fever, cold sweats, cough, sore throat, body aches Time Seen by Provider: 02/06/22 16:27 History of Present Illness Provider Complaint: She states that for the past 1 day she has had body aches, chills, scratchy throat, runny nose, fever and a headache. Related Data Home Medications Medication Instructions Recorded Confirmed hydroxychloroquine 200 mg tablet 200 mg PO 08/31/20 02/01/22 Previous Rx's Medication Instructions Recorded montelukast 10 mg tablet See Rx Instructions .Route 11/28/21 .COMPLEX #90 tabs meclizine 50 mg tablet (Antivert) 50 mg PO BID PRN dizziness #60 tabs 12/07/21 lorazepam 2 mg tablet 2 mg PO DAILY PRN panic level 12/14/21 anxiety #20 tabs meloxicam 7.5 mg tablet 7.5 mg PO DAILY pain 30 days #30 01/08/22 tabs benzonatate 100 mg capsule 100 mg PO TIDP PRN Cough #30 caps 02/06/22 ondansetron 4 mg disintegrating 4 mg PO Q8H PRN Nausea #12 tabs 02/06/22 tablet Allergies Allergy/AdvReac Type Severity Reaction Status Date / Time No Known Allergies Allergy Verified 02/06/22 17:02 PFSH PFSH Medical History Edema HLD (hyperlipidemia) HTN (hypertension) JACQUIE on CPAP Surgical History Hx of tubal ligation Social History Smoking Status: Never smoker alcohol intake: never substance use type: denies use current occupational status: other Travel in the last 8 weeks: None household members: family housing: house current occupation: [employer] current occupational exposures/hazards: No caffeine: No ROS Obtained: Yes All systems reviewed & no additional complaints except as documented Constitutional Constitutional: Reports chills and Reports fever(s) Eyes Eyes: Denies eye discharge ENT Ears, Nose, Mouth, and Throat: Reports as per HPI Cardiovascular Cardiovascular: Denies chest pain Respiratory Respiratory: Denies chest congestion and Reports cough Gastrointestinal Gastrointestingal: Reports nausea; Denies abdominal pain, constipation, cramping, diarrhea or vomiting Musculoskeletal Musculoskeletal: Denies arthralgias Integumentary/Breasts Skin/Breast: Denies rash Neurologic Neurologic: Denies paresthesias Physical Exam General General appearance: alert and in no apparent distress Head Head exam: atraumatic, normocephalic and normal in
[2022-02-06 16:34] LABS: UTC Influenza A Antigen Negative (Negative); UTC Influenza B Antigen Negative (Negative)
[2022-02-06 16:57] VITALS: BP 147/75; PULSE 74; RESP 18; TEMP 36.9; O2SAT 97; BMI 36.6
[2022-02-06 17:04] VITALS: BP 147/75; PULSE 74; RESP 18; TEMP 36.9
[2022-02-06 17:23] LABS: Adenovirus,PCR Not Detected (NotDetected); Bordetella Pertussis Not Detected (NotDetected); Chlamydophila Pneumoniae, PCR Not Detected (NotDetected); Coronavirus 19, PCR Not Detected (NotDetected); Coronavirus 229E Not Detected (NotDetected); Coronavirus NL63 Not Detected (NotDetected); Coronavirus OC43 Not Detected (NotDetected); Coronovirus HKU1,PCR Not Detected (NotDetected); Human Metapneumovirus Not Detected (NotDetected); Influenza A, PCR Not Detected (NotDetected); Influenza AH1, 2009 Not Detected (NotDetected); Influenza AH1, PCR Not Detected (NotDetected); Influenza AH3,PCR Not Detected (NotDetected); Influenza B, PCR Not Detected (NotDetected); Mycoplasma Pneumoniae, PCR Not Detected (NotDetected); Parainfluenza 1, PCR Not Detected (NotDetected); Parainfluenza 2, PCR Not Detected (NotDetected); Parainfluenza 3, PCR Not Detected (NotDetected); Parainfluenza 4, PCR Not Detected (NotDetected); Respiratory Syncytial Virus Not Detected (NotDetected); Rhinovirus/Enterovirus Not Detected (NotDetected)
== END 2022-02-06 17:05 | disposition home or self-care (01) ==
PROVIDERS: Emergency Provider Nurse Practitioner Family; PCP Family Medicine
DX: R50.9 Fever, unspecified (principal); R05.9 Cough, unspecified; J02.9 Acute pharyngitis, unspecified; R52 Pain, unspecified; B34.9 Viral infection, unspecified
CPT/HCPCS: 87581; 87632; 87798; 87804; 99212; C9803; G0463; U0003; U0005

== ENCOUNTER 2022-03-09 10:04 | Emergency (ER) | payer OTHER, SELFPAY ==
[2022-03-09 10:30] VITALS: BP 141/75; PULSE 118; RESP 20; TEMP 37.2; O2SAT 95; BMI 36.6
--- NOTE | 2022-03-09 10:51 | EXP.UTC ---
Discharge Plan Disposition Patient Disposition: Home, Self-Care Condition: Good Prescriptions Prescriptions: New benzonatate 100 mg capsule 100 mg PO BID PRN (Reason: cough) Qty: 14 0RF No Action Antivert 50 mg tablet 50 mg PO BID PRN (Reason: dizziness) Qty: 60 5RF lorazepam 2 mg tablet 2 mg PO DAILY PRN (Reason: panic level anxiety) Qty: 20 0RF Rx Instructions: use sparingly hydroxychloroquine 200 mg tablet 200 mg PO montelukast 10 mg tablet See Rx Instructions .ROUTE .COMPLEX Qty: 90 3RF Dose Instruction: TAKE ONE TABLET BY MOUTH EVERY DAY Rx Instructions: TAKE ONE TABLET BY MOUTH EVERY DAY meloxicam 7.5 mg tablet 7.5 mg PO DAILY MDD once daily 30 Days Qty: 30 4RF benzonatate [benzonatate] 100 mg capsule 100 mg PO TIDP PRN (Reason: Cough) Qty: 30 0RF ondansetron 4 mg Tablet,Disintegrating 4 mg PO Q8H PRN (Reason: Nausea) Qty: 12 0RF Referrals Follow up/Referrals: Fuad Dawson MD [Primary Care Provider] - See instructions Activity Restrictions/Add. Instructions Additional Instructions/Restrictions: No sign of a bacterial infection. Likely viral. Viruses can take 7-14 days to run their course. Nasal saline and bulb syringe or nose Blanca to remove nasal drainage to help with nasal congestion. Hard to eat, drink, sleep with nasal congestion so important to keep this cleaned out. Monitor temp. Tylenol or Motrin as needed for pain or fever Encourage fluids, water, Gatorade, Powerade, Pedialyte if /toddler/child Warm salt water gargles Warm fluids Sore throat lozenges Sleep elevated Humidifier/vaporizer Follow-up immediately for new or worsening symptoms or no noticeable improvement over the next 48-72 hours. Clinical Impressions Clinical Impression: Upper respiratory infection Instructions Patient Instructions: DI for Viral Upper Respiratory Infection -- Adult Discharge ED Provider: Barber ([facility])[place] [place] General Stated complaint: cough, fever Time Seen by Provider: 03/09/22 10:51 HEENT Symptoms (Recalled from RN notes): Yes Resp Symptoms (Recalled from RN notes): Yes History of Present Illness Provider Complaint: 36 yr old female presents for cough, body aches,and congestion that started yesterday Related Data Home Medications Medication Instructions Recorded Confirmed hydroxychloroquine 200 mg tablet 200 mg PO 08/31/20 02/01/22 Previous Rx's Medication Instructions Recorded montelukast 10 mg tablet See Rx Instructions .Route 11/28/21 .COMPLEX #90 tabs meclizine 50 mg tablet (Antivert) 50 mg PO BID PRN dizziness #60 tabs 12/07/21 lorazepam 2 mg tablet 2 mg PO DAILY PRN panic level 12/14/21 anxiety #20 tabs benzonatate 100 mg capsule 100 mg PO TIDP PRN Cough #30 caps 02/06/22 ondansetron 4 mg disintegrating 4 mg PO Q8H PRN Nausea #12 tabs 02/06/22 tablet meloxicam 7.5 mg tablet 7.5 mg PO DAILY pain 30 days #30 02/11/22 tabs benzonatate 100 mg capsule 100 mg PO BID PRN cough #14 caps 03/09/22 Allergies Allergy/AdvReac Type Severity Reaction Status Date / Time No Known Allergies Allergy Verified 02/06/22 17:02 [facility] Disclaimer: The information contained in this section may have been updated after the patient was seen, as this information can be updated by other users. Medical History , CHASSIS WIRER) Edema HLD (hyperlipidemia) HTN (hypertension) JACQUIE on CPAP Surgical History , CHASSIS WIRER) History of appendectomy History of cholecystectomy Hx of tubal ligation Social History , CHASSIS WIRER) Smoking Status: Never smoker alcohol intake: never substance use type: denies use current occupational status: other Travel in the last 8 weeks: None household members: family housing: house current occupation: [employer]
[2022-03-09 10:59] LABS: Coronavirus 19, PCR Not Detected (NotDetected); Influenza B, PCR Not Detected (NotDetected)
[2022-03-09 11:00] VITALS: BP 141/75; PULSE 118; RESP 20; TEMP 37.2; O2SAT 95
[2022-03-09 11:34] LABS: Influenza A, PCR Detected (NotDetected)
== END 2022-03-09 11:06 | disposition home or self-care (01) ==
PROVIDERS: Emergency Provider Nurse Practitioner Family; PCP Family Medicine
DX: J06.9 Acute upper respiratory infection, unspecified (principal)
CPT/HCPCS: 99212; C9803; G0463; U0003; U0005

== ENCOUNTER 2022-06-30 09:10 | Emergency (ER) | payer OTHER, SELFPAY ==
[2022-06-30 09:20] VITALS: BP 130/85; PULSE 78; RESP 21; TEMP 37.3; O2SAT 98; BMI 35.4
--- NOTE | 2022-06-30 09:34 | EXP.UTC ---
Discharge Plan Disposition Patient Disposition: Home, Self-Care Condition: Good Prescriptions Prescriptions: New benzonatate 100 mg capsule 100 mg PO TID PRN (Reason: cough) Qty: 30 0RF No Action Antivert 50 mg tablet 50 mg PO BID PRN (Reason: dizziness) Qty: 60 5RF tizanidine 4 mg tablet 4 mg PO lorazepam 2 mg tablet 2 mg PO DAILY PRN (Reason: panic level anxiety) Qty: 20 0RF Rx Instructions: use sparingly meloxicam 7.5 mg tablet 7.5 mg PO DAILY MDD once daily 30 Days Qty: 30 4RF montelukast 10 mg tablet See Rx Instructions .ROUTE .COMPLEX Qty: 90 3RF Dose Instruction: TAKE ONE TABLET BY MOUTH EVERY DAY Rx Instructions: TAKE ONE TABLET BY MOUTH EVERY DAY escitalopram oxalate [Lexapro] 20 mg tablet 20 mg PO DAILY Qty: 90 3RF Rx Instructions: for control of anxiety and depressed mood Referrals Follow up/Referrals: Fuad Dawson MD [Primary Care Provider] - See instructions Activity Restrictions/Add. Instructions Additional Instructions/Restrictions: *Monitor Temp, Over the counter Motrin or Tylenol as directed/as needed Tylenol every 4 hours and Motrin every 6 hours (as long as your family doctor has told you that you can take it) for fever or pain. and straight to ER if unable to lower temp less than 101.0 after medication given *Warm salt water gargles may help to soothe the throat *Throat Lozenges? *Warm fluids like tea with honey may help to soothe the throat? *Sleep elevated *Humidifier/Vaporizer Your throat swab was sent for culture. Those results are typically sent to your primary care. Be sure to follow up in 2-3 days with your family doctor/primary care physician if no improvement so they can review those result and treat if necessary. If you don?t have a primary care doctor, I recommend you get one but in the mean time, you will have to return to a walk in clinic Follow up IMMEDIATELY for new or worsening symptoms or no Noticeable improvement over the next 48-72 hours. 911 for difficulty breathing or swallowing Clinical Impressions Clinical Impression: Viral upper respiratory infection Instructions Patient Instructions: Sore Throat, Cough Discharge ED Provider: Greta Cotto [facility] [place] HPI General Stated complaint: sore throat, cough Time Seen by Provider: 06/30/22 09:35 History of Present Illness Provider Complaint: Patient states that she has been having sore throat, nasal congestion and cough State that she was around her nephew that has had strep throat and she feels like she may have it now too Related Data Home Medications Medication Instructions Recorded Confirmed tizanidine 4 mg tablet 4 mg PO 03/22/22 04/15/22 Previous Rx's Medication Instructions Recorded meclizine 50 mg tablet (Antivert) 50 mg PO BID PRN dizziness #60 tabs 12/07/21 escitalopram oxalate 20 mg tablet 20 mg PO DAILY #90 tabs 04/15/22 (Lexapro) lorazepam 2 mg tablet 2 mg PO DAILY PRN panic level 04/15/22 anxiety #20 tabs meloxicam 7.5 mg tablet 7.5 mg PO DAILY pain 30 days #30 04/15/22 tabs montelukast 10 mg tablet See Rx Instructions .Route 04/15/22 .COMPLEX #90 tabs benzonatate 100 mg capsule 100 mg PO TID PRN cough #30 caps 06/30/22 Allergies Allergy/AdvReac Type Severity Reaction Status Date / Time No Known Allergies Allergy Verified 04/15/22 14:04 [facility] Disclaimer: The information contained in this section may have been updated after the patient was seen, as this information can be updated by other users. Medical History Edema HLD (hyperlipidemia) HTN (hypertension) JACQUIE on CPAP Surgical History History of appendectomy History of cholecystectomy Hx of tubal ligation Social History Smoking Status: Never smoker alcohol
[2022-06-30 09:42] LABS: UTC Strep Screen (Rapid) Negative (Negative)
[2022-06-30 09:44] VITALS: BP 130/85; PULSE 78; RESP 21; TEMP 37.3; O2SAT 98
== END 2022-06-30 09:49 | disposition home or self-care (01) ==
PROVIDERS: Emergency Provider Nurse Practitioner; PCP Family Medicine
DX: J06.9 Acute upper respiratory infection, unspecified (principal); B34.9 Viral infection, unspecified
CPT/HCPCS: 87880; 99212; 99214; G0463

== ENCOUNTER 2022-12-11 15:33 | Emergency (ER) | payer OTHER, SELFPAY ==
[2022-12-11 15:34] VITALS: BP 142/82; PULSE 64; RESP 18; TEMP 36.7; O2SAT 99; BMI 35.7
--- NOTE | 2022-12-11 15:51 | XR_ITS ---
FINAL REPORT CLINICAL HISTORY: pain/swelling LT SHOULDER COMPARISON: 06/08/2020 FINDINGS: Left shoulder Three views were obtained. There is no acute fracture or dislocation. There is mild AC joint degenerative change. No soft tissue abnormality is identified. IMPRESSION: No acute process. Reviewed, Interpreted and Dictated by Samm Cedillo III, MD Transcribed by Denisha Villa Authenticated and [facility]
--- NOTE | 2022-12-11 16:00 | EXP.UTC ---
Discharge Plan Disposition Patient Disposition: Home, Self-Care Condition: Good Prescriptions Prescriptions: No Action tizanidine 4 mg tablet 4 mg PO lorazepam 2 mg tablet 2 mg PO DAILY PRN (Reason: panic level anxiety) Qty: 30 5RF Rx Instructions: use sparingly meloxicam 7.5 mg tablet 7.5 mg PO DAILY MDD once daily 30 Days Qty: 30 4RF montelukast 10 mg tablet See Rx Instructions .ROUTE .COMPLEX Rx Instructions: TAKE ONE TABLET BY MOUTH EVERY DAY escitalopram oxalate [Lexapro] 20 mg tablet 20 mg PO DAILY Rx Instructions: for control of anxiety and depressed mood Referrals Follow up/Referrals: Fuad Dawson MD [Primary Care Provider] - See instructions Activity Restrictions/Add. Instructions Additional Instructions/Restrictions: You were evaluated in the emergency department today. Please take Tylenol and ibuprofen at home as needed for pain. Follow-up with your primary care provider over the next 3 days for reassessment. Return to the emergency department for new or worsening symptoms Clinical Impressions Clinical Impression: Chest pain, Acute pain of left shoulder Stand Alone Forms Stand Alone Forms: Work/School Release Instructions Patient Instructions: DI for Atypical Chest Pain Discharge ED Provider: Marla Sinclair [facility] General Chief complaint: Chest Pain Stated complaint: Knee inflammation Mode of Arrival: Ambulatory Source of Information: Patient Limitations: No Limitations Time Seen by Provider: 12/11/22 16:00 Description of Symptoms (Recalled from Triage Doc. by RN): Swelling back pain under left shoulder blade HEENT Symptoms (Recalled from RN notes): No Resp Symptoms (Recalled from RN notes): No Skin Symptoms (Recalled from RN notes): No MS Symptoms (Recalled from RN notes): Yes Functional Status (Recalled from RN notes): n/a History of Present Illness Provider Complaint: She states that she has had left shoulder pain for the past 3 days. She has also had episodes of chest pain and n/v over the past 2 days. Related Data Home Medications Medication Instructions Recorded Confirmed tizanidine 4 mg tablet 4 mg PO 03/22/22 09/10/22 escitalopram oxalate 20 mg tablet 20 mg PO DAILY mood 12/11/22 12/11/22 (Lexapro) montelukast 10 mg tablet See Rx Instructions .Route 12/11/22 12/11/22 .COMPLEX allergies Previous Rx's Medication Instructions Recorded meloxicam 7.5 mg tablet 7.5 mg PO DAILY pain 30 days #30 04/15/22 tabs lorazepam 2 mg tablet 2 mg PO DAILY PRN panic level 07/30/22 anxiety #30 tabs Allergies Allergy/AdvReac Type Severity Reaction Status Date / Time No Known Allergies Allergy Verified 12/11/22 15:58 Worker's Comp Is this a Worker's Comp case?: No [facility] Disclaimer: The information contained in this section may have been updated after the patient was seen, as this information can be updated by other users. Medical History Edema HLD (hyperlipidemia) HTN (hypertension) JACQUIE on CPAP Surgical History History of appendectomy History of cholecystectomy Hx of tubal ligation Family History Other Cancer Heart attack Hypertension Stroke Thyroid disorder Social History Smoking Status: Never smoker alcohol intake: never substance use type: denies use current occupational status: other Travel in the last 8 weeks: None household members: family housing: house current occupation: [employer] current occupational exposures/hazards: No caffeine: No ROS Obtained: Yes All systems reviewed & no additional complaints except as documented Constitutional Constitutional: Denies chills and Denies fever(s) Eyes Eyes: Denies eye discharge EN
--- NOTE | 2022-12-11 16:16 | ECG_ITS ---
APPROVED REPORT Exam: Resting ECG HR:59 bpm ECG Measurements Heart Rate [address] 145 P 48 QRSd 85 QRS 29 QT 396 T 44 QTc 394 Conclusion SINUS BRADYCARDIA BORDERLINE ECG UNCONFIRMED REPORT Electronically signed by : Cesar Navarro MD 12/13/2022 16:06:41
--- NOTE | 2022-12-11 16:34 | XR_ITS ---
PROCEDURE INFORMATION: Exam: XR Chest Exam date and time: 12/11/2022 5:02 PM Age: 36 years old Clinical indication: Pain; Chest pressure; Additional info: Chest pain TECHNIQUE: Imaging protocol: Radiologic exam of the chest. Views: 2 views. COMPARISON: CR XR CHEST PORTABLE 12/13/2021 7:10 PM FINDINGS: Lungs: Unchanged calcified granulomas in the right midlung. The lungs are otherwise clear. Pleural spaces: Unremarkable. No pleural effusion. No pneumothorax. Heart/Mediastinum: Unremarkable. No cardiomegaly. Bones/joints: Unremarkable. IMPRESSION: No acute findings.
--- NOTE | 2022-12-11 16:35 | HMH.EDGENADL ---
Discharge Plan Disposition Patient Disposition: Home, Self-Care Condition: Good Prescriptions Prescriptions: No Action tizanidine 4 mg tablet 4 mg PO lorazepam 2 mg tablet 2 mg PO DAILY PRN (Reason: panic level anxiety) Qty: 30 5RF Rx Instructions: use sparingly meloxicam 7.5 mg tablet 7.5 mg PO DAILY MDD once daily 30 Days Qty: 30 4RF montelukast 10 mg tablet See Rx Instructions .ROUTE .COMPLEX Rx Instructions: TAKE ONE TABLET BY MOUTH EVERY DAY escitalopram oxalate [Lexapro] 20 mg tablet 20 mg PO DAILY Rx Instructions: for control of anxiety and depressed mood Referrals Follow up/Referrals: Fuad Dawson MD [Primary Care Provider] - See instructions Activity Restrictions/Add. Instructions Additional Instructions/Restrictions: You were evaluated in the emergency department today. Please take Tylenol and ibuprofen at home as needed for pain. Follow-up with your primary care provider over the next 3 days for reassessment. Return to the emergency department for new or worsening symptoms Clinical Impressions Clinical Impression: Chest pain, Acute pain of left shoulder Instructions Patient Instructions: DI for Atypical Chest Pain Discharge ED Provider: Marla Sinclair General Adult HPI General Chief complaint: Chest Pain Stated complaint: Knee inflammation Time Seen by Provider: 12/11/22 16:00 Mode of Arrival: Ambulatory Source of Information: Patient Limitations: No Limitations Description of Symptoms (Recalled from ER Triage Doc. by RN): Swelling back pain under left shoulder blade History of Present Illness HPI narrative: This patient is a 36-year-old female with a history of anxiety, obesity, migraines, hyperlipidemia, hypertension, and JACQUIE presenting to the emergency department for evaluation with concern for chest pains. Patient reports that 2 days ago, her son did not come home from school. She states she got very anxious and worked up and had to have the dressmaker helper's office bring him home. She started having chest pains that night. She states it was on the left side of her chest radiating up to her left shoulder. She does state the pain has been intermittent but has continued. She also notes swelling in her bilateral lower extremities, worse in her feet. She denies any fevers, chills, shortness of breath, abdominal pain, nausea, vomiting, changes in bowel movements, or other concerns. She denies any history of blood clots or clotting disorders. Her pain is worse with movements and palpation. She was sent over from urgent treatment center for further evaluation today. Related Data Home Medications Medication Instructions Recorded Confirmed tizanidine 4 mg tablet 4 mg PO 03/22/22 09/10/22 escitalopram oxalate 20 mg tablet 20 mg PO DAILY mood 12/11/22 12/11/22 (Lexapro) montelukast 10 mg tablet See Rx Instructions .Route 12/11/22 12/11/22 .COMPLEX allergies Previous Rx's Medication Instructions Recorded meloxicam 7.5 mg tablet 7.5 mg PO DAILY pain 30 days #30 04/15/22 tabs lorazepam 2 mg tablet 2 mg PO DAILY PRN panic level 07/30/22 anxiety #30 tabs Allergies Allergy/AdvReac Type Severity Reaction Status Date / Time No Known Allergies Allergy Verified 12/11/22 15:58 [facility] Disclaimer: The information contained in this section may have been updated after the patient was seen, as this information can be updated by other users. Medical History Edema HLD (hyperlipidemia) HTN (hypertension) JACQUIE on CPAP Surgical History History of appendectomy History of cholecystectomy Hx of tubal ligation Family History Other Cancer Heart attack Hypertension Stroke Thyroid disorder Social History Smoking Stat
[2022-12-11 16:38] VITALS: BP 140/95; PULSE 68; RESP 16; TEMP 36.7; O2SAT 99; BMI 35.7
[2022-12-11 17:02] LABS: Basophils % 0.4 % (0.1-2.0); Eosinophils # 0.2 K/mm3 (0.0-0.4); Eosinophils % 2.1 % (0.1-12.0); Hemoglobin 15.2 g/dL (12.2-16.2); Lymphocytes # 2.4 K/mm3 (0.7-4.5); Lymphocytes % 24.5 % (10-50); Mean Corpuscular HGB Conc 32.3 g/dL (31.8-35.4); Mean Corpuscular Hemoglobin 30.6 pg (27.0-31.2); Mean Corpuscular Volume 94.7 fl (81-99); Mean Platelet Volume 7.9 fl (7.4-10.4); Monocytes # 0.4 K/mm3 (0.1-1.0); Monocytes % 4.1 % (1.7-9.3); Neutrophils # 6.7 K/mm3 (1.8-7.8); Neutrophils % 68.9 % (37.0-80.0); Platelet Count 311 K/mm3 (142-424); Red Blood Count 4.97 M/mm3 (4.20-5.40); Red Cell Distribution Width 13.2 % (11.5-17.5); White Blood Count 9.7 K/mm3 (4.8-10.8)
[2022-12-11 17:08] LABS: Alanine Aminotransferase 22 U/L (12-78); Albumin Level 4.8 g/dl (3.5-5.0); Albumin/Globulin Ratio 1.3 (1.1-1.8); Alkaline Phosphatase 97 U/L (38-126); Anion Gap 15.1 mEq/L (5-15); Aspartate Amino Transferase 28 U/L (14-36); Bilirubin,Total 0.4 mg/dl (0.2-1.3); Blood Urea Nitrogen 12 mg/dl (7-17); Calcium 9.3 mg/dl (8.4-10.2); Carbon Dioxide 26 mmol/L (22.0-30.0); Chloride 103 mmol/L (98-107); Creatinine Clearance Estimated 150 mL/min (50-200); Estimated Glomerular Filt Rate 81 ml/min (>60); GFR (African American) 98 ML/MIN (>60); Globulin 3.7 g/dL (1.3-3.2); Glucose 94 mg/dl (74-100); Potassium 4.1 mmoL/L (3.5-5.1); Sodium 140 mmol/L (136-145); Total Protein,Serum 8.5 g/dl (6.3-8.2)
[2022-12-11 17:23] LABS: Troponin I < 0.01 ng/ml (0.00-0.034)
[2022-12-11 17:26] LABS: T4 (Thyroxine) 10.7 ug/dl (5.53-11.0)
--- NOTE | 2022-12-11 17:51 | PC.NURSE ---
pt back from radiology
[2022-12-11 18:03] VITALS: BP 128/93; PULSE 66; RESP 18; TEMP 36.7; O2SAT 99
== END 2022-12-11 18:03 | disposition home or self-care (01) ==
LOC: UTC 15:35 → ER 16:24
PROVIDERS: Emergency Provider Emergency Medicine; PCP Family Medicine
DX: R07.9 Chest pain, unspecified (principal); M25.512 Pain in left shoulder; R22.41 Localized swelling, mass and lump, right lower limb; R22.42 Localized swelling, mass and lump, left lower limb; I10 Essential (primary) hypertension; R00.1 Bradycardia, unspecified; E78.5 Hyperlipidemia, unspecified; G43.909 Migraine, unspecified, not intractable, without status migrainosus; E66.9 Obesity, unspecified; F41.9 Anxiety disorder, unspecified
CPT/HCPCS: 71046; 73030; 80053; 84436; 84443; 84484; 85025; 93005; 99285

== ENCOUNTER 2023-05-28 09:48 | Outpatient (CLI) | payer OTHER, SELFPAY ==
--- NOTE | 2023-05-28 09:59 | MM_ITS ---
PROCEDURE INFORMATION: Exam: MG Bilateral Screening 3D Mammography Exam date and time: 05/28/2023 9:50 AM Age: 37 years old Clinical indication: Screening mammogram TECHNIQUE: Imaging protocol: Bilateral Screening tomosynthesis and 2D mammography including computer-aided detection (CAD) when performed. COMPARISON: No relevant prior studies available. FINDINGS: MAMMOGRAPHY: Breast composition: There are scattered areas of fibroglandular density. Mass: None. Architectural distortion: No new or suspicious architectural distortion. Calcifications: No new or suspicious calcifications are present Asymmetric density: No new or suspicious asymmetric density is present Skin thickening: None. Axillary adenopathy: None. IMPRESSION: No mammographic evidence of malignancy. Recommend annual screening mammography unless otherwise clinically indicated. ASSESSMENT: BI-RADS category 1: Negative
== END 2023-05-28 23:59 ==
LOC: RAD 09:49
PROVIDERS: PCP Family Medicine; Visit Provider Family Medicine
DX: Z12.31 Encounter for screening mammogram for malignant neoplasm of breast (principal)
CPT/HCPCS: 77063; 77067

== ENCOUNTER 2023-09-09 08:08 | Outpatient (CLI) | payer OTHER, SELFPAY ==
--- NOTE | 2023-09-09 08:16 | XR_ITS ---
FINAL REPORT CLINICAL HISTORY: left proximal second toe pain COMPARISON: 08/31/2020 FINDINGS: LEFT FOOT: Three views of the left foot were obtained. There is no acute fracture or dislocation. There is mild degenerative change at the first MTP. Calcaneal spurs are noted. There is no soft tissue abnormality. IMPRESSION: No acute bony abnormality. Reviewed, Interpreted and Dictated by Samm Cedillo III, MD Transcribed by Mahnaz Cabral Authenticated and [facility]
== END 2023-09-09 23:59 | disposition home or self-care (01) ==
LOC: RAD 08:09
PROVIDERS: PCP Family Medicine; Visit Provider Nurse Practitioner
DX: M79.675 Pain in left toe(s) (principal)
CPT/HCPCS: 73630

== ENCOUNTER 2023-09-22 14:34 | Emergency (ER) | payer OTHER, SELFPAY ==
[2023-09-22 14:35] VITALS: BP 142/73; PULSE 82; RESP 18; TEMP 36.6; O2SAT 96; BMI 39.9
--- NOTE | 2023-09-22 16:06 | XR_ITS ---
PROCEDURE INFORMATION: Exam: XR Right Ankle Exam date and time: 09/22/2023 4:22 PM Age: 37 years old Clinical indication: Pain; Ankle; Right TECHNIQUE: Imaging protocol: Radiologic exam of the right ankle. Views: 3 or more views. COMPARISON: CR XR FOOT WT BEARING RT 3V 08/31/2020 11:21 AM FINDINGS: Bones/joints: Multiple views were obtained. The osseous structures appear intact with no evidence of acute fracture, dislocation, or malalignment. Degenerative changes are noted, consistent with age-related wear and tear. Joint spaces are generally preserved. No abnormal bone density or destructive lesions are noted. There is a plantar calcaneal enthesophyte. Soft tissues: Soft tissue swelling is observed, warranting further clinical correlation. IMPRESSION: At the time of imaging, the skeletal radiograph demonstrates no acute osseous abnormalities but shows signs of degenerative changes and soft tissue swelling.
--- NOTE | 2023-09-22 16:06 | XR_ITS ---
PROCEDURE INFORMATION: Exam: XR Right Foot Exam date and time: 09/22/2023 4:24 PM Age: 37 years old Clinical indication: Pain; Swelling, leg or foot and other: Bruising; Right TECHNIQUE: Imaging protocol: Radiologic exam of the right foot. Views: 3 or more views. COMPARISON: CR XR FOOT WT BEARING RT 3V 08/31/2020 11:21 AM FINDINGS: Bones/joints: There is a plantar calcaneal enthesophyte. Multiple views were obtained. The osseous structures appear intact with no evidence of acute fracture, dislocation, or malalignment. Degenerative changes are noted, consistent with age-related wear and tear. Joint spaces are generally preserved. No abnormal bone density or destructive lesions are noted. Soft tissues: Soft tissue swelling is observed, warranting further clinical correlation. IMPRESSION: At the time of imaging, the skeletal radiograph demonstrates no acute osseous abnormalities but shows signs of degenerative changes and soft tissue swelling.
--- NOTE | 2023-09-22 16:35 | ED_ITS ---
Discharge Plan Disposition Patient Disposition: Home, Self-Care Condition: Good Prescriptions Prescriptions: No Action tizanidine 4 mg tablet 4 mg PO lorazepam 2 mg tablet 2 mg PO DAILY PRN (Reason: panic level anxiety) Qty: 30 5RF Rx Instructions: use sparingly torsemide 20 mg tablet 20 mg PO DAILY PRN (Reason: edema) Qty: 30 2RF Rx Instructions: USE NEEDED FOR SWELLING Wegovy 0.25 mg/0.5 mL pen injector 0.25 mg SQ WEEKLY Qty: 2 0RF Rx Instructions: administer weeks 1 through 4 of therapy topiramate [Topamax] 50 mg tablet 50 mg PO BID Qty: 60 3RF meloxicam 15 mg tablet 15 mg PO DAILY Qty: 90 3RF methylprednisolone 4 mg tablets,dose pack 4 mg PO PER PKG DIR Qty: 21 0RF ibuprofen 800 mg tablet 800 mg PO Q8H PRN (Reason: pain) 30 Days Qty: 90 2RF metformin 500 mg tablet 500 mg PO BID Qty: 180 3RF montelukast 10 mg tablet See Rx Instructions .ROUTE .COMPLEX Qty: 90 2RF Dose Instruction: TAKE 1 TABLET BY MOUTH ONCE DAILY Rx Instructions: TAKE 1 TABLET BY MOUTH ONCE DAILY escitalopram oxalate 20 mg tablet See Rx Instructions .ROUTE .COMPLEX Qty: 90 2RF Dose Instruction: TAKE 1 TABLET BY MOUTH ONCE DAILY FOR CONTROL OF ANXIETY AND DEPRESSED MOOD Rx Instructions: TAKE 1 TABLET BY MOUTH ONCE DAILY FOR CONTROL OF ANXIETY AND DEPRESSED MOOD Referrals Follow up/Referrals: Fuad Dawson MD [Primary Care Provider] - See instructions Activity Restrictions/Add. Instructions Additional Instructions/Restrictions: Stop Ibuprofen and take Tylenol as needed for pain. Rest, Ice, compression and elevation of the right foot. Keep follow up with PCP tomorrow. Clinical Impressions Clinical Impression: Pain in right ankle and joints of right foot Instructions Patient Instructions: DI for Foot Pain, How To Perform RICE (Rest, Ice, Compress, Elevate) Discharge ED Provider: Esha Connor [facility] General Stated complaint: swelling and bruising in R leg Mode of Arrival: Ambulatory Source of Information: Patient Limitations: No Limitations Time Seen by Provider: 09/22/23 15:58 Description of Symptoms (Recalled from Triage Doc. by RN): Pt stated that since 09/18/2023 she has woken up with bruising on right leg/foot, swelling, and gets hot at times. HEENT Symptoms (Recalled from RN notes): No Resp Symptoms (Recalled from RN notes): No Skin Symptoms (Recalled from RN notes): Yes MS Symptoms (Recalled from RN notes): No Functional Status (Recalled from RN notes): n/a History of Present Illness Provider Complaint: Pt reports that on 09/17 she woke up with a bruise on her right espinosa. She reports that she has continued to have more bruising daily on her right foot and ankle. She states that her foot hurt so bad last night she had to be helped to bed. She reports taking Ibuprofen 800mg TID for an injury to her left foot. Related Data Home Medications Medication Instructions Recorded Confirmed tizanidine 4 mg tablet 4 mg PO 03/22/22 09/11/23 Previous Rx's Medication Instructions Recorded lorazepam 2 mg tablet 2 mg PO DAILY PRN panic level 07/30/22 anxiety #30 tabs torsemide 20 mg tablet 20 mg PO DAILY PRN edema #30 tabs 12/13/22 metformin 500 mg tablet 500 mg PO BID #180 tabs 04/04/23 meloxicam 15 mg tablet 15 mg PO DAILY #90 tabs 05/19/23 semaglutide (weight loss) 0.25 0.25 mg (0.5 mL) SQ WEEKLY #2 mL 05/19/23 mg/0.5 mL subcutaneous pen injector (Bernardo) topiramate 50 mg tablet (Topamax) 50 mg PO BID #60 tabs 05/19/23 montelukast 10 mg tablet See Rx Instructions .Route 06/05/23 .COMPLEX #90 tabs escitalopram oxalate 20 mg tablet See Rx Instructions .Route 08/27/23 .COMPLEX #90 tabs ibuprofen 800 mg tablet 800 mg PO Q8H PRN pain 30 days #90 09/11/23 tabs methylprednisolone 4 mg tablets in 4 mg PO PER PKG DIR Pain, swelling 09/11/23 a dose pack #21 tabs Allergies Allergy/AdvReac Type Severity Reaction Status Date / Time No Known Allergies Allergy Verified 09/22/23 15:36 Worker's Comp Is this a Worker's Comp case?: No [facility] Disclaimer: The information contained in this section may have been updated after the patient was seen, as this information can be updated by other users. Medical History Toe pain, left HLD (hyperlipidemia) JACQUIE on CPAP Edema HTN (hypertension) Surgical History History of cholecystectomy History of appendectomy Hx of tubal ligation Family History Other Cancer Heart attack Hypertension Stroke Thyroid disorder Social History Smoking Status: Never smoker alcohol intake: never substance use type: denies use current occupational status: other Travel in the last 8 weeks: None household members: family housing: house current occupation: [employer] current occupational exposures/hazards: No caffeine: No ROS Obtained: Yes All systems reviewed & no additional complaints except as documented Constitutional Constitutional: Reports system reviewed and no additional complaints, except as documented Eyes Eyes: Reports system reviewed and no additional complaints, except as documented ENT Ears, Nose, Mouth, and Throat: Reports system reviewed and no additional complaints, except as documented Cardiovascular Cardiovascular: Reports system reviewed and no additional complaints, except as documented Respiratory Respiratory: Reports system reviewed and no additional complaints, except as documented Gastrointestinal Gastrointestingal: Reports system reviewed and no additional complaints, except as documented Genitourinary Female Genitourinary: Reports system reviewed and no additional complaints, except as documented Musculoskeletal Musculoskeletal: Reports system reviewed and no additional complaints, except as documented, Reports abnormal gait, Reports arthralgias, Reports joint swelling and Reports radiating pain into limb Integumentary/Breasts Skin/Breast: Reports system reviewed and no additional complaints, except as documented Neurologic Neurologic: Reports system reviewed and no additional complaints, except as documented and Reports abnormal gait Endocrine Endocrine: Reports system reviewed and no additional complaints, except as documented Hematologic/Lymphatic Henatologic/Lymphatic: Reports system reviewed and no additional complaints, except as documented Allergic/Immunologic Allergic/Immunologic: Reports system reviewed and no additional complaints, except as documented Physical Exam General General appearance: alert and in no apparent distress Head Head exam: atraumatic and normocephalic Eye Eye exam: Present normal appearance ENT ENT exam: Present normal exam and normal oropharynx Neck Neck exam: Present normal inspection Chest Chest inspection: Present normal inspection and symmetric chest wall rise Respiratory Respiratory exam: Present normal lung sounds bilaterally Cardiovascular Cardiovascular exam: Present regular rate, normal rhythm and normal heart sounds Abdominal Exam Abdominal exam: Present soft and normal bowel sounds Extremities Exam Extremities exam: Present tenderness and normal capillary refill Expanded Lower Extremity Exam Right: Hip/Pelvis exam: Present normal inspection Upper leg exam: Present normal inspection Knee exam: Present normal inspection Lower leg exam: Present ecchymosis (on the lower espinosa) Ankle exam: Present tenderness, swelling and ecchymosis Foot/toe exam: Present tenderness, swelling and ecchymosis Top foot image: 2 1. bruising and swelling 2. bruising and swelling 3. Bruising and swelling Neurovascular/Tendon exam: Present normal capillary refill Gait: observed and limited by pain Back Exam Back exam: Present normal inspection Neurological Exam Neurological exam: Present alert and oriented X3 Psychiatric Psychiatric exam: Present normal affect Skin Skin exam: Present warm, dry and intact Lymphatic Lymphatic Findings: no adenopathy Medical Decision Making Juan Diego Inquiry Pt receiving controlled substance: No Juan Diego was queried for this patient: No Vital Signs: 09/22/23 14:35 Temperature 97.9 F Temperature Source Oral Pulse Rate [Right Radial] 82 Respiratory Rate 18 Blood Pressure [Right Arm] 142/73 H Blood Pressure Mean [Right Arm] 96 Blood Pressure Source [Right Arm] Automatic Cuff Blood Pressure Position [Right Arm] Sitting 02 Sat by Pulse Oximetry 96 Oxygen Delivery Method Room Air Orders (Tests/Meds): ORDERS Category Date Time Status Ankle XR -Right minimum 3 Views [XR ankle RT min 3V] Exams 09/22/23 16:06 Ordered Stat XR foot RT min 3V Stat Exams 09/22/23 16:06 Ordered
[2023-09-22 16:53] VITALS: BP 142/73; PULSE 82; RESP 18; TEMP 36.6; O2SAT 96
== END 2023-09-22 16:53 | disposition home or self-care (01) ==
PROVIDERS: Emergency Provider Nurse Practitioner Family; PCP Family Medicine
DX: M25.571 Pain in right ankle and joints of right foot (principal)
CPT/HCPCS: 73610; 73630; 99212; 99213; G0463

== ENCOUNTER 2023-10-01 11:19 | Outpatient (CLI) | payer OTHER, SELFPAY ==
[2023-10-01 21:07] LABS: Alanine Aminotransferase 32 U/L (12-78); Albumin Level 4.3 g/dl (3.5-5.0); Albumin/Globulin Ratio 1.5 (1.1-1.8); Alkaline Phosphatase 85 U/L (38-126); Anion Gap 13.9 mEq/L (5-15); Aspartate Amino Transferase 31 U/L (14-36); Bilirubin,Total 0.6 mg/dl (0.2-1.3); Blood Urea Nitrogen 15 mg/dl (7-17); Calcium 9.7 mg/dl (8.4-10.2); Carbon Dioxide 28 mmol/L (22.0-30.0); Chloride 103 mmol/L (98-107); Estimated Glomerular Filt Rate 70 ml/min (>60); GFR (African American) 85 ML/MIN (>60); Globulin 2.9 g/dL (1.3-3.2); Glucose 109 mg/dl (74-100); Potassium 4.9 mmoL/L (3.5-5.1); Sodium 140 mmol/L (136-145); Total Protein,Serum 7.2 g/dl (6.3-8.2)
[2023-10-01 21:37] LABS: Thyroid Stimulating Hormone 1.75 uIU/mL (0.465-4.68)
== END 2023-10-01 23:59 | disposition home or self-care (01) ==
LOC: LAB.DROPOF 10-02 11:19
PROVIDERS: PCP Family Medicine; Visit Provider Family Medicine
DX: R60.9 Edema, unspecified (principal)
CPT/HCPCS: 80053; 84443

== ENCOUNTER 2024-02-24 15:28 | Emergency (ER) | payer OTHER, SELFPAY ==
--- OUTSIDE RECORDS SUMMARY | 2024-02-24 15:41 | XMS_ITS | Encounter Summary ---
Author Organization [facility] Address [address] [place] [address] Care Team Providers Care Rerecording Mixer Name Role Phone Carmelo Blandon APRN Primary Care Provider [phone] Encounter Details Date Type Department Care Team (Latest Contact Info) Description 2020 Travel Social History Tobacco Use Types Packs/Day Years Used Date Smoking Tobacco: Never Smokeless Tobacco: Never Alcohol Use Standard Drinks/Week Comments No 0 (1 standard drink = 0.6 oz pur e alcohol) PHQ-2 Answer Date Recorded Patient Health Questionnaire-2 Score 0 2020 Comments Unknown Sex and Gender Information Value Date Recorded Sex Assigned at Not on file Legal Sex Female 8:44 PM EDT Gender Identity Not on file Sexual Orientation Not on file COVID-19 Exposure Response Date Recorded In the last month, have you been in contact with someone who was confirmed or suspected to have Coronavirus / COVID-19? No / Unsure 2020 9:57 AM EDT documented as of this encounter Plan of Treatment Not on file documented as of this encounter Visit Diagnoses Not on filedocumented in this encounter Additional Health Concerns Assessment Noted Time A fall risk assessment has been complete d for the patient 2020 10:32 AM EDT documented as of this encounter Care Teams Rerecording Mixer Relationship Specialty Start Date End Date Carmelo Blandon APRN [address] [place] [address] JEAN PAUL Blakely [id number] PCP - General 08/11/20 02/18/22 documented as of this encounter
--- OUTSIDE RECORDS SUMMARY | 2024-02-24 15:41 | XMS_ITS | Encounter Summary ---
Author Organization [facility] Address [address] [place] [address] Care Team Providers Care Glass Artist Name Role Phone Fuad Dawson MD Primary Care Provider [phone] Alicia Ndiaye Unavailable [phone] Reason for Visit * Other Medical (Routine) - Closed Specialty Diagnoses / Procedures Referred By Elisha gasca Referred To Contact Neurology Diagnoses Myofascial pain Procedures Inject Trigger Points, >3 Alicia Ndiaye PA [address] [facility] [address] [place] [address] Phone: tel: fax: Referral ID Status Reason Start Date Expiration Date Visits Re quested Visits Authorized [id number] Closed 12/31/2021 07/02/2023 1 1 Encounter Details Date Type Department Care Team (Late st Contact Info) Description 02/20/2022 8:30 AM EST Procedure Visit [facility] [address] [place] [address] Alicia Ndiaye PA [address] [facility] [address] [place] [address] Myofascial pain (Primary Dx) Social History Tobacco Use Types Packs/Day Years Used Date Smoking Tobacco: Never Smokeless Tobacco: Never Alcohol Use Standard Drinks/Week Comments No 0 (1 standard drink = 0.6 oz pur e alcohol) PHQ-2 Answer Date Recorded Patient Health Questionnaire-2 Score 0 02/19/2022 Comments Unknown Sex and Gender Information Value Date Recorded Sex Assigned at Not on file Legal Sex Female 8:44 PM EDT Gender Identity Not on file Sexual Orientation Not on file COVID-19 Exposure Response Date Recorded In the last 10 days, have yo u been in contact with someone who was confirmed or suspected to have Coronavirus/COVID-19? No / Unsure 02/20/2022 8:17 AM EST documented as of this encounter Miscellaneous Notes * Progress Notes - Alicia Ndiaye PA - 02/20/2022 8:30 AM ESTAssociated Order(s): Inject Trigger Points, >3 Pre-Procedure Diagnose(s): Myofascial pain Post-Procedure Diagnose(s): Myofascial pain Patient ID: Talia Collins is a 36 y.o. female. Encounter Diagnosis Name Primary? Myofascial pain Yes Inject Trigger Points, >3 Performed by: ROSAS Jimenez Authorized by: ROSAS Jimenez Preparation: Patient was prepped and draped in the usual sterile fashion. Local anesthesia used: no Anesthesia: Local anesthesia used: no Sedation: Patient sedated: no Patient tolerance: patient tolerated the procedure well with no immediate complications Comments: INDICATION: Patient is suffering from headache, neck pain and myofascial pain syndrome. CONSENT OBTAINED: Risks and benefits of the Trigger point injection procedure have been explained to the patient. Patient has no contraindications such as bleed diathesis, recent acute trauma at the muscle sites, anesthetic allergy or anticoagulation. Mechanism of trigger point injection has been explained to patient. The patient understands the risks and benefits of the trigger point injection procedure and wished to proceed. Patient's consent was obtained and updated.. . A time out was performed before the nerve block procedure and consisted of verifying patient identity, procedure and sites of treatment.. PROCEDURE NOTE: Patient was positioned comfortably. Before injections are started, 10 Trigger Points sites are identified throughout the bilateral occipitalis, cervical, upper trapezius muscle, levator scapulae, and erector spinae muscles. Overlying skin area was cleaned with alcohol swab. Before injection, trigger points sites were palpated for local twitch and referred pain to confirmsplacement. Local anesthetic was mixed with Depo-Medrol (5 cc of Marcaine 0.5% mixed with 5 cc of Depo-Medrol at 40 mg/ml - for a total of 10 cc) 30-gauge ?? inch needle was utilized to ensure patient comfort. Trigger Points were localized within taut muscle-fibers. Tender spot was fixed between fingers (1-2 cm in size) to prevents from rolling away from needle. Needle was directed at 30 a degree angle off skin. Needle was inserted and advanced into the skin and Trigger Point then 1cc was injected at each of the identified Trigger Points Needle was withdrawn and bleeding was controlled. After each of the 10 injections, direct pressure and massage was performed to prevent hematoma formation. Patient was instructed to gently stretch injected areas to full active range of motion in all directions and was instructed to repeat range of motion three times after injection. There was no evidence of complications after injections, such as local skin irritation, infection or local hematoma at injection site. Post-Procedure: Patient was instructed to avoid over-using injected area for 3-4 days Maintain active range of motion of injected muscle. Apply ice to injected areas for a few hours. Then place a heating pad over a warm moist towel with the warm moist towel directly over the injected sites. Anticipate post-injection soreness for 3-4 days. Medications used: ?? Administered: Bupivacaine HCl - 0.5 % Injection Solution ?? Administered: Depo-Medrol 40 MG/ML Injection Suspension (Kenalog) R Ox3, Cx2, Tx3 L Ox1, Cx0, Tx1 documented in this encounter Plan of Treatment Not on file documented as of this encounter Procedures Procedure Name Priority Date/Time Associated Diagnosis Comments INJECT TRIGGER POINTS, > 3 Routine 02/20/2022 8:30 AM EST Myofascial pain documented in this encounter Results * INJECT TRIGGER POINTS, > 3 (02/20/2022 8:30 AM EST) Narrative Alicia Ndiaye PA - 02/20/2022 8:30 AM EST ROSAS Jimenez ? 02/20/2022 12:13 PM Inject Trigger Points, >3 Performed by: ROSAS Jimenez Authorized by: ROSAS Jimenez Preparation: Patient was prepped and draped in the usual sterile fashion. Local anesthesia used: no Anesthesia: Local anesthesia used: no Sedation: Patient sedated: no Patient tolerance: patient tolerated the procedure well with no immediate complications Comments: INDICATION: Patient is suffering from headache, neck pain and myofascial pain syndrome. CONSENT OBTAINED: Risks and benefits of the Trigger point injection procedure have been explained to the patient. ??Patient has no contraindications such as bleed diathesis, recent acute trauma at the muscle sites, anesthetic allergy or anticoagulation. ??Mechanism of trigger point injection has been explained to patient. ?? The patient understands the risks and benefits of the trigger point injection procedure and wished to proceed. Patient's consent was obtained and updated.. . A time out was performed before the nerve block procedure and consisted of verifying patient identity, procedure and sites of treatment.. PROCEDURE NOTE: Patient was positioned comfortably. Before injections are started, 10 Trigger Points sites are identified throughout the bilateral occipitalis, cervical, upper trapezius muscle, levator scapulae, and erector spinae muscles. ?? Overlying skin area was cleaned with alcohol swab. Before injection, trigger points sites were palpated for local twitch and referred pain to confirms placement. ? Local anesthetic was mixed with Depo-Medrol (5 cc of Marcaine 0.5% mixed with 5 cc of Depo-Medrol at 40 mg/ml - for a total of 10 cc) 30-gauge ?? inch needle was utilized to ensure patient comfort. ? Trigger Points were localized within taut muscle-fibers. Tender spot was fixed between fingers (1-2 cm in size) to prevents from rolling away from needle. ?? Needle was directed at 30 a degree angle off skin. Needle was inserted and advanced into the skin and Trigger Point then 1cc was injected at each of the identified Trigger Points Needle was withdrawn and bleeding was controlled. After each of the 10 injections, direct pressure and massage was performed to prevent hematoma formation. Patient was instructed to gently stretch injected areas to full active range of motion in all directions and was instructed to repeat range of motion three times after injection. There was no evidence of complications after injections, such as local skin irritation, infection or local hematoma at injection site. Post-Procedure: ??Patient was instructed to avoid over-using injected area for 3-4 days Maintain active range of motion of injected muscle. Apply ice to injected areas for a few hours. ??Then place a heating pad over a warm moist towel with the warm moist towel directly over the injected sites. Anticipate post-injection soreness for 3-4 days. Medications used: ? Administered: Bupivacaine HCl - 0.5 % Injection Solution ?? Administered: Depo-Medrol 40 MG/ML Injection Suspension (Kenalog) R Ox3, Cx2, Tx3 L Ox1, Cx0, Tx1 us Alicia PILLAI IN CLINIC/BEDSIDE ORDERABLES Final Result documented in this encounter Visit Diagnoses Diagnosis Myofascial pain- Primary Unspecified myalgia and myositis documented in this encounter Administered Medications Inactive Administered Medications - up to 3 most recent administrations Medication Order MAR Action Action Date Dose Rate Site bupivacaine PF (Marcaine) 0.5 % injection 25 mg 25 mg (5 mL), Injection, Once, 1 dose, On Fri02/20/22 at 0845, RoutineIndications:Myofascial pain Given by Other 02/20/2022 9:09 AM EST 25 mg Oth er methylPREDNISolone acetate (DEPO-Medrol) injection 200 mg 200 mg, Intramuscular, Once, 1 dose, On Fri02/20/22 at 0845, RoutineIndications:Myofascial pain Given by Other 02/20/2022 9:09 AM EST 200 mg Oth er documented in this encounter Additional Health Concerns Assessment Noted Time A fall risk assessment has been complete d for the patient 02/19/2022 8:17 AM EST documented as of this encounter Care Teams Glass Artist Relationship Specialty Start Date End Date Fuad Dawson MD PCP - General 02/19/22 Alicia Ndiaye PA [address] [address] Physician [facility] 02/20/22 documented as of this encounter
--- OUTSIDE RECORDS SUMMARY | 2024-02-24 15:41 | XMS_ITS | Encounter Summary ---
Author Organization Healthcare Address [address] [id number] Care Team Providers Care Residential Glazier Name Role Phone Carmelo Blandon APRN Primary Care Provider [phone]- [phone] Encounter Details Date Type Department Care Team (Latest Contact Info) Description 12/31/2021 Travel Social History Tobacco Use Types Packs/Day Years Used Date Smoking Tobacco: Never Smokeless Tobacco: Never Alcohol Use Standard Drinks/Week Comments No 0 (1 standard drink = 0.6 oz pur e alcohol) PHQ-2 Answer Date Recorded Patient Health Questionnaire-2 Score 0 04/06/2021 Comments Unknown Sex and Gender Information Value Date Recorded Sex Assigned at Not on file Legal Sex Female 8:44 PM EDT Gender Identity Not on file Sexual Orientation Not on file COVID-19 Exposure Response Date Recorded In the last 10 days, have yo u been in contact with someone who was confirmed or suspected to have Coronavirus/COVID-19? No / Unsure 12/31/2021 1:07 PM EDT documented as of this encounter Plan of Treatment Not on file documented as of this encounter Visit Diagnoses Not on filedocumented in this encounter Additional Health Concerns Assessment Noted Time A fall risk assessment has been complete d for the patient 12/31/2021 1:21 PM EDT documented as of this encounter Care Teams Residential Glazier Relationship Specialty Start Date End Date Carmelo Blandon APRN [address] [place] [address] JEAN PAUL Blakely [id number] PCP - General 08/11/20 02/18/22 documented as of this encounter
--- OUTSIDE RECORDS SUMMARY | 2024-02-24 15:41 | XMS_ITS | Encounter Summary ---
Author Organization Healthcare Address [address] [id number] Care Team Providers Care Grounds And Nursery Specialist Name Role Phone Carmelo Blandon APRN Primary Care Provider [phone] Encounter Details Date Type Department Care Team (Latest Contact Info) Description 02/18/2022 Travel Social History Tobacco Use Types Packs/Day [...] suspected to have Coronavirus/COVID-19? No / Unsure 02/18/2022 9:57 PM EST documented as of this encounter Plan of Treatment Not on file documented as of this encounter Visit Diagnoses Not on filedocumented in this encounter Additional Health Concerns Assessment Noted Time A fall risk assessment has been complete d for the patient 12/31/2021 1:21 PM EDT documented as of this encounter Care Teams Grounds And Nursery Specialist Relationship Specialty Start Date End Date Carmelo Blandon APRN [address] [place] [address] JEAN PAUL Blakely [id number] PCP - General 08/11/20 02/18/22 documented as of this encounter
--- OUTSIDE RECORDS SUMMARY | 2024-02-24 15:41 | XMS_ITS | Encounter Summary ---
Author Organization Healthcare Address [address] [place] [address] Care Team Providers Care Shipping And Receiving Material Handler Name Role Phone Fuad Dawson MD Primary Care Provider [phone] Reason for Visit * Reason Comments Follow-up Encounter Details Date Type Department Care Team (Late st Contact Info) Description 02/19/2022 8:30 AM EST Office Visit [facility] [address], [address] [place] [id number] Estefania Sepulveda, LOG CLERK [address] [address] Inflammatory arthritis (Primary Dx); High risk medication use Social History Tobacco Use Types Packs/Day Years Used Date Smoking Tobacco: Never Smokeless Tobacco: Never Tobacco Cessation:Counseling Given: Not Answered Alcohol Use Standard Drinks/Week Comments No 0 [...] PM EST documented as of this encounter Last Filed Vital Signs Vital Sign Reading Time Taken Comments Blood Pressure 126/84 02/19/2022 8:12 AM EST Pulse 71 02/19/2022 8:12 AM EST Temperature 36.8 ??C (98.2 ??F) 02/19/2022 8:12 AM ES T Respiratory Rate - - Oxygen Saturation 97% 02/19/2022 8:12 AM EST Inhaled Oxygen Concentration - - Weight 101 kg (222 lb 10.6 oz) 02/19/2022 8:12 A M EST Height 165.1 cm (5' 5 ) 02/19/2022 8:12 AM EST Body Mass Index 37.05 02/19/2022 8:12 AM EST documented in this encounter Miscellaneous Notes * Patient Instructions - Estefania Sepulveda APRN - 02/19/2022 8:30 AM EST Images from the original note were not included. * Progress Notes - Estefania Sepulveda APRN - 02/19/2022 8:30 AM EST Subjective Patient ID: Talia Collins is a 36 y.o. female. Chief Complaint Patient presents with Follow-up HPI 35 year old female in clinic for follow-up of suspected inflammatory arthritis (- RF, - CCP, + DOMINICK 1:80; homogenous). PMHx of migraines. At initial visit (06/02/18), reported a one year history of joint pain in hands, feet, and knees. Insidious onset. Hand pain started first. Hands and knees are most painful. Joint swelling in bilateralMCPs and PIPs. Morning stiffness lasting 2 hours. Denied SICCA, oral/nasal ulcers, serositis, Raynaud's, rashes, photosensitivity, alopecia, blood clot/stroke. Denied uveitis, IBD, psoriasis. 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. with children. Mother with RA. PGM with RA. Lab results from referring provider: + LAC, - CCP, - RF, - SSA, - SSB, - GENDER STUDIES PROFESSOR, - Agustin, - anti dsDNA, - SCL70,- antichromatin, - anti Jo1, - anti centromere. Today (02/19/2022), currently taking HCQ 200 mg BID. No recent fevers or infections. No COVID vaccine. Last eye appt was in October 2021. She does not feel the Hydroxychloroquine is working as well in the last month. She has had increased pain and swelling in her hands and feet, and pain in her knees. Denies any illness or infection. Medication History: HCQ (09/16- current) Visit Vitals BP 126/84 Pulse 71 Temp 36.8 ??C (98.2 ??F) Ht 1.651 m (5' 5 ) Wt 101 kg (222 lb 10.6 oz) SpO2 97% BMI 37.05 kg/m?? The following portions of the chart were reviewed this encounter and updated as appropriate: Review of Systems Constitutional: Negative. Respiratory: Negative. Cardiovascular: Negative. Musculoskeletal: Positive for arthralgias. Negative for joint swelling. Skin: Negative. Objective Physical Exam Vitals reviewed. Constitutional: Appearance: Normal appearance. She is obese. HENT: Head: Normocephalic and atraumatic. Eyes: Extraocular Movements: Extraocular movements intact. Conjunctiva/sclera: Conjunctivae normal. Pupils: Pupils are equal, round, and reactive to light. Cardiovascular: Rate and Rhythm: Normal rate and regular rhythm. Pulses: Normal pulses. Heart sounds: Normal heart sounds. Pulmonary: Effort: Pulmonary effort is normal. Breath sounds: Normal breath sounds. Abdominal: General: Bowel sounds are normal. Palpations: Abdomen is soft. Musculoskeletal: General: No swelling or tenderness. Normal range of motion. Cervical back: Normal range of motion. Skin: General: Skin is warm and dry. Neurological: General: No focal deficit present. Mental Status: She is alert and oriented to person, place, and time. Psychiatric: Mood and Affect: Mood normal. Behavior: Behavior normal. Thought Content: Thought content normal. Judgment: Judgment normal. There is currently no information documented on the homunculus. Go to the Rheumatology activity andcomplete the homunculus joint exam. Swollen: --0 Tender: --0 PGA: 2/10 Rapid3: 4.3/30 Assessment/Plan Diagnosis Plan 1. Inflammatory arthritis 2. High risk medication use 1. Inflammatory Arthritis: Negative RF and CCP from PCP. Also, - SSA, - SSB, - GENDER STUDIES PROFESSOR, - Agustin, - antidsDNA, - SCL70, - antichromatin, - anti Jo1, - anti centromere. + DOMINICK (1:80; homogenous). Currentlytaking HCQ 200 mg BID. Improved hand and knee pain. Feet are particularly bothersome. HBV negative (06/16) HCV negative (06/16) TB quant (06/16) HCQ eye exam WNL (09/18) Labs from hospitalization (12/15/20): CBC WNL, BMP WNL. Plan: - Continue HCQ. 400 mg/day. - increase meloxicam to 15mg daily - CBC/HFP/Cr today RTC in 3 months. Current Outpatient Medications Medication Instructions cyclobenzaprine (FLEXERIL) 5 mg, Oral, As needed hydroxychloroquine (Plaquenil) 200 MG tablet TAKE 1 TABLET BY MOUTH TWICE DAILY LORazepam (Ativan) 2 MG tablet No dose, route, or frequency recorded. Meclizine HCl 25 MG chewable tablet No dose, route, or frequency recorded. meloxicam (MOBIC) 7.5 mg, Oral, Daily montelukast (Singulair) 10 MG tablet 1 tablet, Oral, Daily ondansetron (Zofran) 4 MG tablet 1 tablet, Oral, As needed rizatriptan (MAXALT) 10 mg, Oral, Once as needed, May repeat in 2 hours if unresolved. Do not exceed 30 mg in 24 hours. tiZANidine (Zanaflex) 4 MG tablet 1 tab at bedtime x 1 week then 2 tabs at bedtime. Past Medical History: Diagnosis Date Dizziness, nonspecific Encounter for follow-up examination after completed treatment for conditions other than malignant neoplasm Postoperative examination Encounter for other general counseling and advice on procreation Infertility counseling Other specified health status No known problems Past Surgical History: Procedure Laterality Date APPENDECTOMY N/A Appendectomy from [facility] GALLBLADDER SURGERY N/A Gallbladder Surgery from [facility] SALPINGECTOMY N/A Bilateral salpingectomy from [facility] SKIN LESION EXCISION N/A Skin lesion excision from [facility] WISDOM TOOTH EXTRACTION N/A Oral Surgery Tooth Extraction [place] Tooth from [facility] Family History Problem Relation Name Age of Onset Stroke Mother Lilly Maddox Hypertension Mother Lilly Maddox Hypertension Other Migraines Other Stroke Father Tarun Schroeder Social History Socioeconomic History Marital status: Spouse name: Not on file Number of children: Not on file Years of education: Not on file Highest education level: Not on file Occupational History Not on file Tobacco Use Smoking status: Never Smokeless tobacco: Never Substance and Sexual Activity Alcohol use: No Drug use: No Comment: Drug use: No illicit drug use Sexual activity: Not on file Other Topics Concern Not on file Social History Narrative Not on file Social Determinants of Health Financial Resource Strain: Not on file Food Insecurity: Not on file Transportation Needs: Not on file Physical Activity: Not on file Stress: Not on file Social Connections: Not on file Intimate Partner Violence: Not on file Housing Stability: Not on file documented in this encounter Plan of Treatment Not on file documented as of this encounter Results * Creatinine, Plasma (02/19/2022 9:12 AM EST) Creatinine, Plasma 0.84 0.60 - 1.10 mg/dL 02/19/2022 10:19 AM EST [facility] eGFRcr 92.5 mL/min/1.7 3m*2 02/19/2022 10:19 AM EST [facility] Comment: Reported eGFRcr in mL/min/1.73m2 is based the CKD-EPI 2021 equation that does not use a race coefficient. Effective 10/24/21 our laboratory changed the eGFR calculation to the CKD-EPI 2021 equation from the previously reported eGFR, based on the MDRD equation. ??For comparisons between the two equations, please see laboratory website: ??[email or web address] Blood Venous blood specimen / Unknown Venipuncture / Unknown 02/19/2022 9:12 AM EST 02/19/2022 9:12 AM EST Estefania Sepulveda APRN LAB BLOOD ORDERABLES Fi nal Result [facility] [address] [place] [address] * (ABNORMAL) Hepatic Function Panel (02/19/2022 9:12 AM EST) Conjugated Bilirubin, Plasma <0.2 0.0 - 0.3 mg/dL 02/19/2022 10:19 AM EST [facility] Alkaline Phosphatase, Plasma 82 35 - 104 U/L 02/19/2022 10:19 AM EST [facility] Total Bilirubin, Plasma 0.5 0.2 - 1.1 mg/dL 02/19/2022 10:19 AM EST [facility] Albumin, Plasma 4.4 3.5 - 5.2 g/dL 02/19/2022 10:19 AM EST [facility] Total Protein 7.0 6.3 - 7.9 g/dL 02/19/2022 10:19 AM EST [facility] ALT, Plasma 69(H) 8 - 33 U/L 02/19/2022 10:19 AM EST [facility] AST, Plasma 19 11 - 32 U/L 02/19/2022 10:19 AM EST [facility] Blood Venous blood specimen / Unknown Venipuncture / Unknown 02/19/2022 9:12 AM EST 02/19/2022 9:12 AM EST Estefania Sepulveda LOG CLERK LAB BLOOD ORDERABLES Fi nal Result [facility] [address] [place], [place] [id number] * CBC and Differential (02/19/2022 9:12 AM EST) WBC Count 6.94 3.70 - 10.30 10*3/uL LAB HEMATOLOGY METHOD 02/19/2022 10:14 AM EST [facility] RBC Count 4.53 3.90 - 5.20 10*6/uL LAB HEMATOLOGY METHOD 02/19/2022 10:14 AM EST [facility] HGB 14.4 11.2 - 15.7 g/dL LAB HEMATOLOGY METHOD 02/19/2022 10:14 AM EST [facility] HCT 42.0 34.0 - 45.0 % LAB HEMATOLOGY METHOD 02/19/2022 10:14 AM EST [facility] Platelet Count 299 155 - 369 10*3/uL LAB HEMATOLOGY METHOD 02/19/2022 10:14 AM EST [facility] MCV 93 79 - 98 fL LAB HEMATOLOGY METHOD 02/19/2022 10:14 AM EST [facility] MCH 31.8 26.0 - 32.0 pg LAB HEMATOLOGY METHOD 02/19/2022 10:14 AM EST [facility] MCHC 34.3 30.7 - 35.5 g/dL LAB HEMATOLOGY METHOD 02/19/2022 10:14 AM EST [facility] RDW 12.1 11.5 - 14.5 % LAB HEMATOLOGY METHOD 02/19/2022 10:14 AM EST [facility] MPV 10.1 8.8 - 12.5 fL LAB HEMATOLOGY METHOD 02/19/2022 10:14 AM EST [facility] nRBC 0.0 <=0.0 per 100 WBCs LAB HEMATOLOGY METHOD 02/19/2022 10:14 AM EST [facility] Differential Type Automated LAB HEMATOLOGY METHOD 02/19/2022 10:14 AM EST [facility] Neutrophils % 62.0 % LAB HEMATOLOGY METHOD 02/19/2022 10:[address] [facility] Lymphocytes % 27.0 % LAB HEMATOLOGY METHOD 02/19/2022 10:[address] [facility] Monocytes % 8.0 % LAB HEMATOLOGY METHOD 02/19/2022 10:[address] [facility] Eosinophils % 2.0 % LAB HEMATOLOGY METHOD 02/19/2022 10:[address] [facility] Basophils % 1.0 % LAB HEMATOLOGY METHOD 02/19/2022 10:[address] [facility] Immature Granulocytes % 0.0 % LAB HEMATOLOGY METHOD 02/19/2022 10:[address] [facility] Neutrophils Absolute 4.35 1.60 - 6.10 10*3/uL LAB HEMATOLOGY METHOD 02/19/2022 10:[address] [facility] Lymphocytes Absolute 1.84 1.20 - 3.90 10*3/uL LAB HEMATOLOGY METHOD 02/19/2022 10:[address] [facility] Monocytes Absolute 0.54 0.30 - 0.90 10*3/uL LAB HEMATOLOGY METHOD 02/19/2022 10:14 AM EST [facility] Eosinophils Absolute 0.14 0.00 - 0.50 10*3/uL LAB HEMATOLOGY METHOD 02/19/2022 10:14 AM EST [facility] Basophils Absolute 0.04 0.00 - 0.10 10*3/uL LAB HEMATOLOGY METHOD 02/19/2022 10:14 AM EST [facility] Immature Granulocytes Absolute 0.03 0.00 - 0.06 10*3/uL LAB HEMATOLOGY METHOD 02/19/2022 10:14 AM EST [facility] Blood Venous blood specimen / Unknown Venipuncture / Unknown 02/19/2022 9:12 AM EST 02/19/2022 9:12 AM EST Narrative [facility] - 02/19/2022 10:14 AM EST Therapeutic decision making should be based on absolute values, rather than percentages. us Estefania Sepulveda LOG CLERK LAB BLOOD ORDERABLES Fi nal Result [facility] [address] [place] [address] documented in this encounter Visit Diagnoses Diagnosis Inflammatory arthritis- Primary Unspecified inflammatory polyarthropathy High risk medication use documented in this encounter Additional Health Concerns Assessment Noted Time A fall risk assessment has been complete d for the patient 02/19/2022 8:17 AM EST documented as of this encounter Care Teams Shipping And Receiving Material Handler Relationship Specialty Start Date End Date Fuad Dawson MD PCP - General 02/19/22 documented as of this encounter
--- OUTSIDE RECORDS SUMMARY | 2024-02-24 15:41 | XMS_ITS | Encounter Summary ---
Author Organization [facility] Address [address] [place] [address] Care Team Providers Care Car Rental Agent Name Role Phone Fuad Dawson MD Primary Care Provider [phone] Alicia Ndiaye Unavailable [phone] Encounter Details Date Type Department Care Team (Latest Contact Info) Description 03/12/2023 Travel Social History Tobacco Use Types Packs/Day [...] on file Sexual Orientation Not on file documented as of this encounter Plan of Treatment Not on file documented as of this encounter Visit Diagnoses Not on filedocumented in this encounter Additional Health Concerns Assessment Noted Time A fall risk assessment has been complete d for the patient 02/19/2022 8:17 AM EST A Body Mass Index follow-up plan has been documented for the patient 03/12/2023 3:10 PM EST documented as of this encounter Care Teams Car Rental Agent Relationship Specialty Start Date End Date Fuad Dawson MD PCP - General 02/19/22 Alicia Ndiaye PA [address] [place] [address] Physician Food Preparer Neurology 02/20/22 documented as of this encounter
--- OUTSIDE RECORDS SUMMARY | 2024-02-24 15:41 | XMS_ITS | Encounter Summary ---
Author Organization Healthcare Address [address] [place] [address] Care Team Providers Care President/Gm Production & Live Experiences Name Role Phone Carmelo Blandon APRN Primary Care Provider [phone] Encounter Details Date Type Department Care Team (Late st Contact Info) Description 02/01/2021 Telephone [facility] [address] [place] [phone] eBcky Shannon Social History Tobacco Use Types Packs/Day Years [...] on file documented as of this encounter Miscellaneous Notes * Telephone Encounter - Becky Shannon - 02/01/2021 12:09 PM EDT Called pt no answer left message, mailing reminder to address on file. documented in this encounter Plan of Treatment Not on file documented as of this encounter Visit Diagnoses Not on filedocumented in this encounter Additional Health Concerns Assessment Noted Time A fall risk assessment has been complete d for the patient 2020 10:32 AM EDT documented as of this encounter Care Teams President/Gm Production & Live Experiences Relationship Specialty Start Date End Date Carmelo Blandon APRN [address] [place] [address] PCP - General 08/11/20 02/18/22 documented as of this encounter
--- OUTSIDE RECORDS SUMMARY | 2024-02-24 15:41 | XMS_ITS | Encounter Summary ---
Author Organization Healthcare Address [address] [place] [address] Care Team Providers Care Radio Operator Ground Name Role Phone Carmelo Blandon LABORATORY EQUIPMENT INSTALLER Primary Care Provider [phone] Reason for Referral * Other Medical (Routine) - Closed Specialty Diagnoses / Procedures Referred By Elisha gasca Referred To Contact Neurology Diagnoses Myofascial pain Procedures Inject Trigger Points, >3 Alicia Ndiaye PA [address] [facility] [address] [place] [address] Phone: tel: fax: Referral ID Status Reason Start Date Expiration Date Visits Re quested Visits Authorized [id number] Closed 12/31/2021 07/02/2023 1 1 Encounter Details Date Type Department Care Team (Late st Contact Info) Description 12/31/2021 1:50 PM EDT [facility] [address] [place] [address] Alicia Ndiaye PA [address] [facility] [address] [place] [phone] Myofascial pain (Primary Dx); Bilateral occipital neuralgia; Migraine without aura and without status migrainosus, not intractable; Chronic daily headache Social History Tobacco Use Types Packs/Day Years [...] PM EDT documented as of this encounter Last Filed Vital Signs Vital Sign Reading Time Taken Comments Blood Pressure 120/90 12/31/2021 1:17 PM EDT Pulse 74 12/31/2021 1:17 PM EDT Temperature - - Respiratory Rate - - Oxygen Saturation 99% 12/31/2021 1:17 PM EDT Inhaled Oxygen Concentration - - Weight 99.8 kg (220 lb) 12/31/2021 1:17 PM EDT Height 165.1 cm (5' 5 ) 12/31/2021 1:17 PM EDT Body Mass Index 36.61 12/31/2021 1:17 PM EDT documented in this encounter Miscellaneous Notes * Progress Notes - Alicia Ndiaye PA - 12/31/2021 1:50 PM EDT Talia Collins presents to clinic for a follow up regarding headache. Patient was last seen by me on 07/24/2020. HPI Ms. Talia Collins is a 36 year old right handed female with a history of migraine, occipital neuralgia and chronic daily headache. At her last visit her occipital neuralgia was stable after responding well to occipital nerve blockin February 2019. Migraine headache typically starts with a mild pain in the back of her head and then will radiate forward to the right side of her head, throbbing in nature, associated with light sensitivity and nausea. Average headache 1-2 per month. Sumatriptan was increased to 100 mg. Dizziness/lightheadedness (new at last visit). The patient had a new onset of dizziness and headache that was different than what she had experienced in the past. Symptoms have improved and only withcertain movements. 05/18/2020: MRI is normal. No enhancement and the frontal cyst vs perivascular space is unchanged from MRI in 2018. She also complained of having a new daily SANCHEZ, no associated symptoms. Admits to only using CPAP PRN. She was to use it consistently for the next 1-2 weeks and see if her daily SANCHEZ improves. If it worsens or does not relieve, she is to contact me and will will consider alternate treatment such as a Medrol dose pack. Today, patient presents to clinic accompanied by her . Patient states that she had done wellsince her last visit until about 1 month ago when occipital pain gradually returned. She is waking up with a SANCHEZ, radiates to the top of her head. The severe pain will lead to a migraine about twice/ week. Migraine is associated with dizziness, light sensitivity and nausea. Sumatriptan helps but it causes sedation and she has to lie down. Past Medical History: Diagnosis Date Dizziness, nonspecific Encounter for follow-up examination after completed treatment for conditions other than malignant neoplasm Postoperative examination Encounter for other general counseling and advice on procreation Infertility counseling Other specified health status No known problems Family History Problem Relation Name Age of Onset Stroke Mother Hypertension Mother Hypertension Other Migraines Other Past Surgical History: Procedure Laterality Date APPENDECTOMY N/A Appendectomy from [facility] GALLBLADDER SURGERY N/A Gallbladder Surgery from [facility] SALPINGECTOMY N/A Bilateral salpingectomy from [facility] SKIN LESION EXCISION N/A Skin lesion excision from [facility] WISDOM TOOTH EXTRACTION N/A Oral Surgery Tooth Extraction [place] Tooth from [employer] Current Outpatient Medications on File Prior to Visit Medication Sig Dispense Refill cyclobenzaprine (Flexeril) 5 MG tablet Take 5 mg by mouth if needed for muscle spasms. hydroxychloroquine (Plaquenil) 200 MG tablet Take 1 tablet (200 mg total) by mouth 2 (two) times a day. 180 tablet 2 LORazepam (Ativan) 2 MG tablet Meclizine HCl 25 MG chewable tablet meloxicam (Mobic) 7.5 MG tablet Take 7.5 mg by mouth 1 (one) time each day. montelukast (Singulair) 10 MG tablet Take 1 tablet by mouth 1 (one) time each day. ondansetron (Zofran) 4 MG tablet Take 1 tablet by mouth if needed. [DISCONTINUED] SUMAtriptan (Imitrex) 100 MG tablet Take 1 tablet by mouth if needed. No current facility-administered medications on file prior to visit. No Known Allergies All medications have been reviewed today. Review of Systems Eyes: Positive for photophobia. Respiratory: Negative for shortness of breath. Gastrointestinal: Positive for nausea. Musculoskeletal: Positive for myalgias and neck pain. Neurological: Positive for headaches. Negative for dizziness, tremors, seizures, syncope, facial asymmetry, speech difficulty, weakness, light-headedness and numbness. Psychiatric/Behavioral: Negative for sleep disturbance. The patient is not nervous/anxious. Objective Vitals: 12/31/21 1317 BP: (!) 120/90 Pulse: 74 SpO2: 99% Physical Exam GEN: WDWN NAD HENT: ATNC, NECK: Supple, ROM normal. There is significant L>R point tenderness in the areas of the head, neck and shoulders. CV: RRR RESP: Good effort EXT: No edema NEURO: MS: Awake, alert, oriented. Good fund of knowledge. Appropriate mood and affect. CN: PERRL. Visual quinn are full. EOMI full and conjugate. Facial sensation intact bilaterally. Nofacial droop. Speech is normal. Hearing is intact. MOTOR: No pronator drift. Muscle tone is normal. Strength is 5/5, R=L. No abnormal movements. SENSORY: Intact COORD: Intact FNF and Anderson bilaterally. GAIT: Normal base, stride and stance. Assessment and Plan 1. Myofascial pain 2. Bilateral occipital neuralgia Patient with recurrence of myofascial pain and occipital pain. Will give her Tizanidine at bedtime for pain relief and to try to prevent the morning SANCHEZ. - tiZANidine (Zanaflex) 4 MG tablet; 1 tab at bedtime x 1 week then 2 tabs at bedtime. Dispense: 60tablet; Refill: 3 - Inject Trigger Points, >3; Future 3. Migraine without aura and without status migrainosus, not intractable Increase in Migraine from 1-2/mo to 8/mo, triggered by Myofascial pain. She has side effects from Sumatriptan, will try Rizatriptan. - rizatriptan (Maxalt) 10 MG tablet; Take 1 tablet (10 mg total) by mouth 1 (one) time if needed for migraine (may repeat x1) for up to 9 doses. May repeat in 2 hours if unresolved. Do not exceed 30 mg in 24 hours. Dispense: 9 tablet; Refill: 5 4. Chronic daily headache Did not decrease in frequency with using CPAP regularly. -30 minutes was spent with chart review, face to face, orders and documentation. documented in this encounter Plan of Treatment Not on file documented as of this encounter Results * INJECT TRIGGER POINTS, [...] Ox3, Cx2, Tx3 L Ox1, Cx0, Tx1 Alicia PILLAI IN CLINIC/BEDSIDE ORDERABLES Final Result documented in this encounter Visit Diagnoses Diagnosis Myofascial pain- Primary Unspecified myalgia and myositis Bilateral occipital neuralgia Migraine without aura and without status migrainosus, not intractable Chronic daily headache Headache Myofascial pain- Primary Unspecified myalgia and myositis documented in this encounter Additional Health Concerns Assessment Noted Time A fall risk assessment has been complete d for the patient 12/31/2021 1:21 PM EDT documented as of this encounter Care Teams Radio Operator Ground Relationship Specialty Start Date End Date Carmelo Blandon APRN [address] [place] [address] PCP - General 08/11/20 02/18/22 documented as of this encounter
--- OUTSIDE RECORDS SUMMARY | 2024-02-24 15:41 | XMS_ITS | Encounter Summary ---
Author Organization Healthcare Address [address] [place] [address] Care Team Providers Care Dental Tech Name Role Phone Carmelo Blandon APRN Primary Care Provider [phone]- [phone] Encounter Details Date Type Department Care Team (Latest Contact Info) Description 04/03/2021 Travel Social History Tobacco Use Types Packs/Day [...] have Coronavirus / COVID-19? No / Unsure 04/03/2021 8:00 AM EST documented as of this encounter Plan of Treatment Not on file documented as of this encounter Visit Diagnoses Not on filedocumented in this encounter Additional Health Concerns Assessment Noted Time A fall risk assessment has been complete d for the patient 2020 10:32 AM EDT documented as of this encounter Care Teams Dental Tech Relationship Specialty Start Date End Date Carmelo Blandon APRN [address] [place] [address] JEAN PAUL Blakely [address] PCP - General 08/11/20 02/18/22 documented as of this encounter
--- OUTSIDE RECORDS SUMMARY | 2024-02-24 15:41 | XMS_ITS | Encounter Summary ---
Author Organization [facility] Address [address] [place] [address] Care Team Providers Care Paramedic Instructor Name Role Phone Fuad Dawson MD Primary Care Provider [phone] Alicia Ndiaye Unavailable [phone] Reason for Referral * Other Medical (Routine) - Pending Review Specialty Diagnoses / Procedures Referred By Contac t Referred To Contact Diagnoses Myofascial pain Procedures Inject Trigger Points, >3 Alicia Ndiaye PA [address] [address] Phone: tel: fax: Referral ID Status Reason Start Date Expiration Date V isits Requested Visits Authorized [id number] Pending Review 02/04/2024 08/05/2025 1 1 Reason for Visit * Reason Comments Myofascial Pain Syndrome * Other Medical (Routine) - Closed Specialty Diagnoses / Procedures Referred By Contac t Referred To Contact Neurology Diagnoses Myalgia, other site Procedures Inject Trigger Points, >3 Alicia Ndiaye PA [address] [address] Phone: tel: fax: Referral ID Status Reason Start Date Expiration Date Visits Re quested Visits Authorized [id number] Closed 03/12/2023 09/10/2024 1 1 Encounter Details Date Type Department Care Team (Late st Contact Info) Description 02/04/2024 10:30 AM EST Procedure Visit [place] [facility] [address], [address] [place] [address] Alicia Ndiaye PA [address] [place] [address] Myofascial pain (Primary Dx); Myalgia, other site Social History Tobacco Use Types Packs/Day Years [...] on file documented as of this encounter Last Filed Vital Signs Vital Sign Reading Time Taken Comments Blood Pressure 125/86 02/04/2024 9:58 AM EST Pulse 70 02/04/2024 9:58 AM EST Temperature - - Respiratory Rate - - Oxygen Saturation 96% 02/04/2024 9:58 AM EST Inhaled Oxygen Concentration - - Weight 107 kg (235 lb 14.3 oz) 02/04/2024 9:58 A M EST Height 165.1 cm (5' 5 ) 02/04/2024 9:58 AM EST Body Mass Index 39.25 02/04/2024 9:58 AM EST documented in this encounter Miscellaneous Notes * Progress Notes - Alicia Ndiaye PA - 02/04/2024 10:30 AM EST Patient is suffering from headache, neck pain [...] to proceed. Patient's consent was obtained and updated. A time out was performed before the nerve block procedure and consisted of verifying patient identity, procedure and sites of treatment. PROCEDURE NOTE: Patient was positioned comfortably. Before injections are started, 10 Trigger Points sites are identified throughout the bilateral occipitalis, upper trapezius muscle, levator scapulae, and erector spinae muscles. Overlying skin area was cleaned with Alcohol swab. Before injection, trigger points sites were palpated for local twitch and referred pain to confirms placement. Local anesthetic was mixed with Depo-Medrol (5 cc of Marcaine 0.25% mixed with 5 cc of Depo-Medrol at 40 mg/ml - for a total of 10 cc). 25 gauge 1 inch needle was utilized to ensure patient comfort. I started with the most tender spot in above mentioned Trigger Points within the muscles of bilateral occipitalis, upper trapezius, levator scapulae, and erector spinae. Localize most tender spot within taut muscle-fibers. Fix tender spot between fingers (1-2 cm in size) to prevent from rolling away from needle. Before injection, patient was instructed of possible pain on injection. Direct needleat 30 degree angle off skin. Insert needle into skin 1-2 cm from Trigger Point. Advance needle intoTrigger Point. Use 1cc anesthetic at each Trigger Points identified. Repeat until local twitch or tautness resolves. Post-Procedure: There was no evidence of complications from injection was noted such as local Skin Infection at injection site or local hematoma at injection site Patient was instructed to avoid over-using injected area for 3-4 days. Maintain active range of motion of injected muscle. Place a heating pad over a warm moist towel with the warm moist towel directly over the injected sites. Anticipate post-injection soreness for 3-4 days Follow up: 12 weeks or PRN Medications Administered: Bupivacaine HCl - 0.25 % Injection Solution Methylprednisolone Acetate 40 mg/ml Procedure Number: 3 Relief from last procedure: 80% Left: O x 1, C x 1, T x 1 Right: O x 3, C x 1, T x 3 Total Given: 10 documented in this encounter Plan of Treatment Scheduled Orders Name Type Priority Associated Diagnoses Orde r Schedule Inject Trigger Points, >3 Procedures Routine Myofascial pain Expected: 05/04/2024, Expires: 02/01/2025 documented as of this encounter Visit Diagnoses Diagnosis Myofascial pain- Primary Unspecified myalgia and myositis Myalgia, other site documented in this encounter Administered Medications Inactive Administered Medications - up to 3 most recent administrations Medication Order MAR Action Action Date Dose Rate Site bupivacaine PF (Marcaine) 0.25 % injection 12.5 mg 12.5 mg (5 mL), Injection, Once, 1 dose, On Fri02/04/24 at 1115, RoutineIndications:Myofascia l pain Given by Other 02/04/2024 10:57 AM EST 12.5 mg Ot her methylPREDNISolone acetate (DEPO-Medrol) injection 200 mg 200 mg, Intramuscular, Once, 1 dose, On Fri02/04/24 at 1115, RoutineIndications:Myofascia l pain Given by Other 02/04/2024 10:57 AM EST 200 mg Ot her documented in this encounter Additional Health Concerns Assessment Noted Time A fall risk assessment has been complete d for the patient 02/19/2022 8:17 AM EST A Body Mass Index follow-up plan has been documented for the patient 02/04/2024 11:49 AM EST documented as of this encounter Care Teams Paramedic Instructor Relationship Specialty Start Date End Date Fuad Dawson MD PCP - General 02/19/22 Alicia Ndiaye PA [address] [address] Physician Hedis Specialist Neurology 02/20/22 documented as of this encounter
--- OUTSIDE RECORDS SUMMARY | 2024-02-24 15:41 | XMS_ITS | Encounter Summary ---
Author Organization Healthcare Address [address] [place] [address] Care Team Providers Care Environmental Web Crawler Name Role Phone Fuad Dawson MD Primary Care Provider [phone] Alicia Ndiaye Unavailable [phone] Reason for Visit * Reason Comments Med Refill Encounter Details Date Type Department Care Team (Late st Contact Info) Description 03/15/2022 Refill [facility] [address], [address] [place] [address] Estefania Sepulveda, HISTOLOGY AIDE [address] [address] Inflammatory arthritis (Primary Dx); High [...] encounter Miscellaneous Notes * Telephone Encounter - Cuellar Fermin Kathryn - 03/15/2022 1:42 PM EST Per protocol, 1 medication(s), HCQ, has been approved for 90 day supply with 0 refill(s) to [facility] pharmacy. documented in this encounter Plan of Treatment Not on file documented as of this encounter Visit Diagnoses Diagnosis Inflammatory arthritis- Primary Unspecified inflammatory polyarthropathy High risk medication use documented in this encounter Additional Health Concerns Assessment Noted Time A fall risk assessment has been complete d for the patient 02/19/2022 8:17 AM EST documented as of this encounter Care Teams Environmental Web Crawler Relationship Specialty Start Date End Date Fuad Dawson MD PCP - General 02/19/22 Alicia Ndiaye PA [address] [facility] [address] [place] [address] Physician Plaster Mixer Neurology 02/20/22 documented as of this encounter
--- OUTSIDE RECORDS SUMMARY | 2024-02-24 15:41 | XMS_ITS | Encounter Summary ---
Author Organization Healthcare Address [address] [place] [address] Care Team Providers Care Wet Char Conveyor Tender Name Role Phone Carmelo Blandon APRN Primary Care Provider [phone] Reason for Visit * Reason Onset Date Comments HCN - Patient Message 01/15/2022 wa nts to r/s Friday's TPI appt with Alicia Ndiaye. Encounter Details Date Type Department Care Team (Late st Contact Info) Description 01/15/2022 Telephone [place] [facility] [address], [address] [place] [address] Alicia Ndiaye PA [address] [place] [address] HCN - Patient Message ( wants to r/s Friday' TPI appt with Alicia Ndiaye.) Social History Tobacco Use Types Packs/Day Years [...] PM EDT documented as of this encounter Miscellaneous Notes * Telephone Encounter - Dmitriy Adan - 01/16/2022 10:50 AM EDT Multiple calls have been attempted unable to reach patient. I have left a VM with the new apt date and time as requested and mailed an apt reminder to the patient * Telephone Encounter - Dmitriy Adan - 01/15/2022 1:27 PM EDT Unable to reach patient left a VM to reschedule injection * Telephone Encounter - Junior Bender - 01/15/2022 10:42 AM EDT Patient Phone Message Reason for Call: wants to r/s Friday's TPI appt with Alicia Kategent. Seeking February 20 to . Best contact number and optimal time of day to reach caller: [phone] Note: Please do not reply to this message. Follow-up communication and further actions as a result of this message need to be communicated with the patient directly, if the patient is not active onMyChart. If the patient is active on MyChart, they will receive notification of the communication/outcome via [employer]. documented in this encounter Plan of Treatment Not on file documented as of this encounter Visit Diagnoses Not on filedocumented in this encounter Additional Health Concerns Assessment Noted Time A fall risk assessment has been complete d for the patient 12/31/2021 1:21 PM EDT documented as of this encounter Care Teams Wet Char Conveyor Tender Relationship Specialty Start Date End Date Carmelo Blandon APRN [address] [place] [address] PCP - General 08/11/20 02/18/22 documented as of this encounter
--- OUTSIDE RECORDS SUMMARY | 2024-02-24 15:41 | XMS_ITS | Encounter Summary ---
Author Organization Healthcare Address [address] [place] [address] Care Team Providers Care Minor League Baseball Player Name Role Phone Carmelo Blandon SUBWAY GUARD Primary Care Provider [phone] Reason for Visit * Reason Comments Med Refill Encounter Details Date Type Department Care Team (Late st Contact Info) Description 02/07/2022 Refill [facility] [address], [address] [place] [address] Estefania Sepulveda, SUBWAY GUARD [address] [address] Inflammatory arthritis (Primary Dx); High [...] encounter Miscellaneous Notes * Telephone Encounter - Fermin Cuellar PharmD - 02/07/2022 2:18 PM EST Per protocol, 1 medication(s), HCQ, has been approved for 30 day supply with 0 refill(s) to [facility] pharmacy. documented in this encounter Plan of Treatment Not on file documented as of this encounter Visit Diagnoses Diagnosis Inflammatory arthritis- Primary Unspecified inflammatory polyarthropathy High risk medication use documented in this encounter Additional Health Concerns Assessment Noted Time A fall risk assessment has been complete d for the patient 12/31/2021 1:21 PM EDT documented as of this encounter Care Teams Minor League Baseball Player Relationship Specialty Start Date End Date Carmelo Blandon APRN [address] [place] [address] PCP - General 08/11/20 02/18/22 documented as of this encounter
--- OUTSIDE RECORDS SUMMARY | 2024-02-24 15:41 | XMS_ITS | Encounter Summary ---
Author Organization Healthcare Address [address] [place] [address] Care Team Providers Care Paper Feeder Name Role Phone Carmelo Blandon APRN Primary Care Provider [phone] Encounter Details Date Type Department Care Team (Latest Contact Info) Description 08/31/2020 - 08/31/2020 12:04 AM EDT Hospital Encounter [facility] [address] [place] [phone] Encounter for other specified special examinations Discharge Disposition: Home or Self Care Social History Tobacco Use Types Packs/Day Years Used Date Smoking Tobacco: Never Alcohol Use Standard Drinks/Week Comments [...] have Coronavirus / COVID-19? No / Unsure 04/06/2021 9:46 AM EST documented as of this encounter Medications at Time of Discharge montelukast (Singulair) 10 MG tablet Take 1 tablet (10 mg) by mouth 1 (one) time each day. 04/06/2020 ondansetron (Zofran) 4 MG tablet Take 1 tablet by mouth if needed. 04/06/2020 hydroxychloroquin e (Plaquenil) 200 MG tablet Take 1 tablet by mouth 1 (one) time each day. 08/11/2020 2020 SUMAtriptan (Imitrex) 100 MG tablet Take 1 tablet by mouth if needed. 07/24/2020 12/31/2021 documented as of this encounter Plan of Treatment Not on file documented as of this encounter Procedures Procedure Name Priority Date/Time Associated Diagnosis Comments XR FOOT LEFT 3+ VIEWS Routine 08/31/2020 12:00 AM EDT Encounter for other specified special examinations documented in this encounter Results * XR Foot Left 3+ Views (08/31/2020 12:00 AM EDT) Narrative IMAGING - 01/19/2021 8:57 AM EDT This study was performed at an outside facility and has been loaded into the PACS system for reference only. ??This order has been auto-finalized and does not contain a result. us Unknown Unknown IMG XR PROCEDURES Final Result IMAGING documented in this encounter Visit Diagnoses Diagnosis Encounter for other specified special examinations documented in this encounter Care Teams Paper Feeder Relationship Specialty Start Date End Date Carmelo Blandon APRN [address] [place] [address] PCP - General 08/11/20 02/18/22 documented as of this encounter
--- OUTSIDE RECORDS SUMMARY | 2024-02-24 15:41 | XMS_ITS | Encounter Summary ---
Author Organization Healthcare Address [address] [place] [address] Care Team Providers Care Freight Loader Name Role Phone Fuad Dawosn MD Primary Care Provider [phone] Encounter Details Date Type Department Care Team (Latest Contact Info) Description 02/19/2022 Travel Social History Tobacco Use Types Packs/Day [...] documented as of this encounter Care Teams Freight Loader Relationship Specialty Start Date End Date Fuad Dawson MD PCP - General 02/19/22 documented as of this encounter
--- OUTSIDE RECORDS SUMMARY | 2024-02-24 15:41 | XMS_ITS | Encounter Summary ---
Author Organization [facility] Address [address] [place] [address] Care Team Providers Care Gear Tester Name Role Phone Carmelo Blandon APRN Primary Care Provider [phone] Reason for Visit * Reason Onset Date Comments HCN - Patient Message 01/03/2022 Patient's seeking TPI appt sooner than 01/30. Encounter Details Date Type Department Care Team (Late st Contact Info) Description 01/03/2022 Telephone [place] [facility] [address], [address] [place] [address] Alicia Ndiaye PA [address] [place] [address] HCN - Patient Message (Patient's seeking TPI appt sooner than 01/30.) Social History Tobacco Use Types Packs/Day Years [...] * Telephone Encounter - Dmitriy Adan - 01/04/2022 11:10 AM EDT We had a cancellation on 01/09 patient has been moved and made aware of the NONC * Telephone Encounter - Junior Bender - 01/03/2022 2:42 PM EDT Patient Phone Message Reason for Call: Patient's seeking TPI appt sooner than 01/30. Please let them know. Thank you. Best contact number and optimal time of day to reach caller: Deven, Note: Please do not reply to this message. Follow-up communication and further actions as a result of this message need to be communicated with the patient directly, if the patient is not active onMyChart. If the patient is active on MyChart, they will receive notification of the communication/outcome via [employer]. documented in this encounter Plan of Treatment Not on file documented as of this encounter Visit Diagnoses Not on filedocumented in this encounter Additional Health Concerns Assessment Noted Time A fall risk assessment has been complete d for the patient 12/31/2021 1:21 PM EDT documented as of this encounter Care Teams Gear Tester Relationship Specialty Start Date End Date Carmelo Blandon APRN [address] [place] [address] JEAN PAUL Blakely [address] PCP - General 08/11/20 02/18/22 documented as of this encounter
--- OUTSIDE RECORDS SUMMARY | 2024-02-24 15:41 | XMS_ITS | Encounter Summary ---
Author Organization Healthcare Address [address] [place] [address] Care Team Providers Care Lmft Name Role Phone Carmelo Blandon SILK SOAKER Primary Care Provider [phone]- [phone] Reason for Visit * Reason Comments Med Refill Encounter Details Date Type Department Care Team (Late st Contact Info) Description 01/10/2022 Refill [place] [facility] [address], [address] [place] [address] Estefania Sepulveda, SILK SOAKER [address] [address] Inflammatory arthritis; High risk medication use Social History Tobacco [...] encounter Miscellaneous Notes * Telephone Encounter - AurelioCourtney PharmD - 01/21/2022 11:54 AM EDT Per protocol, 1 medication(s), HCQ, has been approved for 30 day supply with 0 refill(s). The medication refill request(s) has been sent to [facility] pharmacy. * Telephone Encounter - Armani Rico RN - 01/14/2022 1:30 PM EDT VM x2 and MyChart message sent to RS documented in this encounter Plan of Treatment Not on file documented as of this encounter Visit Diagnoses Diagnosis Inflammatory arthritis Unspecified inflammatory polyarthropathy High risk medication use documented in this encounter Additional Health Concerns Assessment Noted Time A fall risk assessment has been complete d for the patient 12/31/2021 1:21 PM EDT documented as of this encounter Care Teams Lmft Relationship Specialty Start Date End Date Carmelo Blandon APRN [address] [place] [address] PCP - General 08/11/20 02/18/22 documented as of this encounter
--- OUTSIDE RECORDS SUMMARY | 2024-02-24 15:41 | XMS_ITS | Encounter Summary ---
Author Organization Healthcare Address [address] [place] [address] Care Team Providers Care Casting Machine Adjuster Name Role Phone Carmelo Blandon APRN Primary Care Provider [phone]- [phone] Encounter Details Date Type Department Care Team (Late st Contact Info) Description 12/25/2021 Telephone [place] [facility] [address], [address] [place] [address] Alicia Ndiaye PA [address] [place] [address] Social History Tobacco Use Types Packs/Day Years [...] encounter Miscellaneous Notes * Telephone Encounter - Jennifer Najera - 12/27/2021 1:48 PM EDT Unable to get pt scheduled for today, is there another day we can try and get her in? documented in this encounter Plan of Treatment Not on file documented as of this encounter Visit Diagnoses Not on filedocumented in this encounter Additional Health Concerns Assessment Noted Time A fall risk assessment has been complete d for the patient 04/06/2021 9:53 AM EST documented as of this encounter Care Teams Casting Machine Adjuster Relationship Specialty Start Date End Date Carmelo Blandon APRN [address] [place] [address] PCP - General 08/11/20 02/18/22 documented as of this encounter
--- OUTSIDE RECORDS SUMMARY | 2024-02-24 15:41 | XMS_ITS | Encounter Summary ---
Author Organization [facility] Address [address] [place] [address] Care Team Providers Care Corporation Officer Name Role Phone Fuad Dawson MD Primary Care Provider [phone] Alicia Ndiaye Unavailable [phone] Reason for Referral * Other Medical (Routine) - Closed Specialty Diagnoses / Procedures Referred By Contac t Referred To Contact Neurology Diagnoses Myalgia, other site Procedures Inject Trigger Points, >3 Alicia Ndiaye PA [address] [address] Phone: tel: fax: Referral ID Status Reason Start Date Expiration Date Visits Re quested Visits Authorized [id number] Closed 03/12/2023 09/10/2024 1 1 Reason for Visit * Other Medical (Routine) - Closed Specialty Diagnoses / Procedures Referred By Contac t Referred To Contact Neurology Diagnoses Myalgia, other site Procedures Inject Trigger Points, >3 Alicia Ndiaye PA [address] [address] Phone: tel: fax: Referral ID Status Reason Start Date Expiration Date Visits Re quested Visits Authorized [id number] Closed 02/10/2023 08/11/2024 1 1 Encounter Details Date Type Department Care Team (Late st Contact Info) Description 03/12/2023 3:30 PM EST Procedure Visit [place] [facility] [address], [address] [place] [address] Alicia Ndiaye PA [address] [place] [address] Myofascial pain (Primary Dx); Myalgia, [...] Sign Reading Time Taken Comments Blood Pressure 122/80 03/12/2023 2:31 PM EST Pulse 85 03/12/2023 2:31 PM EST Temperature - - Respiratory Rate - - Oxygen Saturation 98% 03/12/2023 2:31 PM EST Inhaled Oxygen Concentration - - Weight 107 kg (235 lb) 03/12/2023 2:31 PM EST Height 165.1 cm (5' 5 ) 03/12/2023 2:31 PM EST Body Mass Index 39.11 03/12/2023 2:31 PM EST documented in this encounter Miscellaneous Notes * Progress Notes - Alicia Ndiaye PA - 03/12/2023 3:30 PM EST Patient is suffering from headache, neck [...] Solution Methylprednisolone Acetate 40 mg/ml Procedure Number: 4 (last one was 01/2022) Relief from last procedure: 100% Left: O x 0, C x 0, T x 2 Right: O x 3, C x 2, T x 3 Total Given: 10 documented in this encounter Plan of Treatment Scheduled Orders Name Type Priority Associated Diagnoses Orde r Schedule Inject Trigger Points, >3 Procedures Routine Myalgia, other site Expected: 06/09/2023, Expires: 03/10/2024 documented as of this encounter Visit Diagnoses Diagnosis Myofascial pain- Primary Unspecified myalgia and myositis Myalgia, other site documented in this encounter Administered Medications Inactive Administered Medications - up to 3 most recent administrations Medication Order MAR Action Action Date Dose Rate Site bupivacaine PF (Marcaine) 0.25 % injection 12.5 mg 12.5 mg (5 mL), Injection, Once, 1 dose, On Fri03/12/23 at 1530, RoutineIndications:Myalgia, other site Given by Other 03/12/2023 2:40 PM EST 12.5 mg Oth er methylPREDNISolone acetate (DEPO-Medrol) injection 200 mg 200 mg, Intramuscular, Once, 1 dose, On Fri03/12/23 at 1530, RoutineIndications:Myalgia, other site Given by Other 03/12/2023 2:40 PM EST 200 mg Oth er documented in this encounter Additional Health Concerns Assessment Noted Time A fall risk assessment has been complete d for the patient 02/19/2022 8:17 AM EST A Body Mass Index follow-up plan has been documented for the patient 03/12/2023 3:10 PM EST documented as of this encounter Care Teams Corporation Officer Relationship Specialty Start Date End Date Fuad Dawson MD PCP - General 02/19/22 Alicia Ndiaye PA [address] [address] Physician Railroad Car Cleaning Supervisor Neurology 02/20/22 documented as of this encounter
--- OUTSIDE RECORDS SUMMARY | 2024-02-24 15:41 | XMS_ITS | Encounter Summary ---
Author Organization Healthcare Address [address] [place] [address] Care Team Providers Care Package Drier Name Role Phone Carmelo Blandon NIKKO Primary Care Provider [phone] Reason for Visit * Reason Comments Follow-up Arthritis Encounter Details Date Type Department Care Team (Late st Contact Info) Description 2020 10:20 AM EDT [facility] Visit [facility] [address], [address] [place] [id number] Pita Breen, NIKKO, [facility] [address] [address] Inflammatory arthritis (Primary Dx); High [...] AM EDT documented as of this encounter Last Filed Vital Signs Vital Sign Reading Time Taken Comments Blood Pressure 115/82 2020 10:27 AM EDT Pulse 80 2020 10:27 AM EDT Temperature 36.7 ??C (98.1 ??F) 2020 1 0:27 AM EDT Respiratory Rate - - Oxygen Saturation 96% 2020 10: 27 AM EDT Inhaled Oxygen Concentration - - Weight 91.1 kg (200 lb 13.4 oz) 021 10:27 AM EDT Height 165.1 cm (5' 5 ) 2020 10:2 7 AM EDT Body Mass Index 33.42 2020 10:27 AM EDT documented in this encounter Miscellaneous Notes * Progress Notes - Pita Breen NP - 2020 10:20 AM EDT Images from the original note were not included. Subjective Patient ID: Talia Collins is a 35 y.o. female. Chief Complaint Patient presents with ??? Follow-up Arthritis HPI 35 year old female in clinic for follow-up of suspected inflammatory arthritis (- RF, - CCP, + DOMINICK 1:80; homogenous). PMHx of migraines. ?? At initial visit (06/02/18), reported a one year history of joint pain in hands, feet, and knees. Insidious onset. Hand pain started first. Hands and knees are most painful. Joint swelling in bilateralMCPs and PIPs. Morning stiffness lasting 2 hours. Denied SICCA, oral/nasal ulcers, serositis, Raynaud's, rashes, photosensitivity, alopecia, blood clot/stroke. Denied uveitis, IBD, psoriasis. 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 with children. Mother with RA. PGM with RA. Lab results from referring provider: + LAC, - CCP, - RF, - SSA, - SSB, - COORDINATOR SKILL TRAINING PROGRAM, - Agustin, - anti dsDNA, - SCL70,- antichromatin, - anti Jo1, - anti centromere. Today (12/15/20), currently taking HCQ 200 mg/day. No neuro sx since restarting. No recent fevers orinfections. No COVID vaccine. Improved hand and knee pain since restarting HCQ. Bilateral foot pain worsened since last visit. Podiatry has diagnosed plantar fasciitis. Receiving steroid injections. No joint swelling. Feet will draw for 15 minutes at a time. Unilateral occurrence. Feels like a coy horse. Occurs at night. During episode, she cannot move her feet. Does not affect the shins. ?? Medication History: HCQ (09/16- current) Visit Vitals BP 115/82 Pulse 80 Temp 36.7 ??C (98.1 ??F) Ht 1.651 m (5' 5 ) Wt 91.1 kg (200 lb 13.4 oz) SpO2 96% BMI 33.42 kg/m?? The following portions of the chart were reviewed this encounter and updated as appropriate: Tobacco Allergies Meds Med Hx Surg Hx Fam Hx Review of Systems Constitutional: Negative. Respiratory: Negative. [...] Content: Thought content normal. Judgment: Judgment normal. Swollen: 0 Tender: 0 PGA: 04/09 Rapid3: 5. Assessment/Plan Diagnosis Plan 1. Inflammatory arthritis 2. High risk medication use Comprehensive metabolic panel CBC and differential 1. Inflammatory Arthritis: Negative RF and CCP from PCP. Also, - SSA, - SSB, - COORDINATOR SKILL TRAINING PROGRAM, - Agustin, - antidsDNA, - SCL70, - antichromatin, - anti Jo1, - anti centromere. + DOMINICK (1:80; homogenous). Currentlytaking HCQ 200 mg/day. Improved hand and knee pain. Feet are particularly bothersome. HBV negative (06/16) HCV negative (06/16) TB quant (06/16) HCQ eye exam WNL (09/18) Labs from hospitalization (04/03/20): CBC WNL, BMP WNL. ?? Plan: - Continue HCQ. Increase to 400 mg/day. - CBC/CMP today. ?? RTC in 3-4 months. Current Outpatient Medications Medication Instructions ??? cyclobenzaprine (FLEXERIL) 5 mg, Oral, As needed ??? hydroxychloroquine (PLAQUENIL) 200 mg, Oral, 2 times daily ??? meloxicam (MOBIC) 7.5 mg, Oral, Daily ??? montelukast (Singulair) 10 MG tablet 1 tablet, Oral, Daily ??? ondansetron (Zofran) 4 MG tablet 1 tablet, Oral, As needed ??? SUMAtriptan (Imitrex) 100 MG tablet 1 tablet, Oral, As needed Past Medical History: Diagnosis Date ??? Encounter for follow-up examination after completed treatment for conditions other than malignant neoplasm Postoperative examination ??? Encounter for other general counseling and advice on procreation Infertility counseling ??? Other specified health status No known problems Past Surgical History: Procedure Laterality Date ??? APPENDECTOMY N/A Appendectomy from [employer] ??? GALLBLADDER SURGERY N/A Gallbladder Surgery from [employer] ??? SALPINGECTOMY N/A Bilateral salpingectomy from [employer] ??? SKIN LESION EXCISION N/A Skin lesion excision from [employer] ??? WISDOM TOOTH EXTRACTION N/A Oral Surgery Tooth Extraction [place] Tooth from [employer] Family History Problem Relation Name Age of Onset ??? Stroke Mother ??? Hypertension Mother ??? Hypertension Other ??? Migraines Other Social History Socioeconomic History ??? Marital status: Spouse name: Not on file ??? Number of children: Not on file ??? Years of education: Not on file ??? Highest education level: Not on file Occupational History ??? Not on file Tobacco Use ??? Smoking status: Never Smoker ??? Smokeless tobacco: Never Used Substance and Sexual Activity ??? Alcohol use: No ??? Drug use: No Comment: Drug use: No illicit drug use ??? Sexual activity: Not on file Other Topics Concern ??? Not on file Social History Narrative ??? Not on file Social Determinants of Health Financial Resource Strain: ??? Difficulty of Paying Living Expenses: Food Insecurity: ??? Worried About Running Out of Food in the Last Year: ??? Ran Out of Food in the Last Year: Transportation Needs: ??? Lack of Transportation (Medical): ??? Lack of Transportation (Non-Medical): Physical Activity: ??? Days of Exercise per Week: ??? Minutes of Exercise per Session: Stress: ??? Feeling of Stress : Social Connections: ??? Frequency of Communication with Friends and Family: ??? Frequency of Social Gatherings with Friends and Family: ??? Attends Jewish Services: ??? Active Member of Clubs or Organizations: ??? Attends Club or Organization Meetings: ??? Marital Status: Intimate Partner Violence: ??? Fear of Current or Ex-Partner: ??? Emotionally Abused: ??? Physically Abused: ??? Sexually Abused: documented in this encounter Plan of Treatment Not on file documented as of this encounter Results * CBC and differential (2020 11:18 AM EDT) [facility] WBC Count 8.35 3.70 - 10.30 10*3/uL LAB HEMATOLOGY METHOD 2020 2:[address] [facility] RBC Count 4.58 3.90 - 5.20 10*6/uL LAB HEMATOLOGY METHOD 2020 2:[address] [facility] HGB 14.1 11.2 - 15.7 g/dL LAB HEMATOLOGY METHOD 2020 2:[address] [facility] HCT 41.7 34.0 - 45.0 % LAB HEMATOLOGY METHOD 2020 2:[address] [facility] Platelet Count 306 155 - 369 10*3/uL LAB HEMATOLOGY METHOD 2020 2:[address] [facility] MCV 91 79 - 98 fL LAB HEMATOLOGY METHOD 2020 2:[address] [facility] MCH 30.8 26.0 - 32.0 pg LAB HEMATOLOGY METHOD 2020 2:[address] [facility] MCHC 33.8 30.7 - 35.5 g/dL LAB HEMATOLOGY METHOD 2020 2:[address] [facility] RDW 12.5 11.5 - 14.5 % LAB HEMATOLOGY METHOD 2020 2:[address] [facility] MPV 10.0 8.8 - 12.5 fL LAB HEMATOLOGY METHOD 2020 2:[address] [facility] nRBC 0.0 <=0.0 per 100 WBCs LAB HEMATOLOGY METHOD 2020 2:[address] [facility] Differential Type Automated LAB HEMATOLOGY METHOD 2020 2:[address] [facility] Neutrophils % 64.0 % LAB HEMATOLOGY METHOD 2020 2:[address] [facility] Lymphocytes % 27.0 % LAB HEMATOLOGY METHOD 2020 2:[address] [facility] Monocytes % 7.0 % LAB HEMATOLOGY METHOD 2020 2:[address] [facility] Eosinophils % 1.0 % LAB HEMATOLOGY METHOD 2020 2:[address] [facility] Basophils % 0.0 % LAB HEMATOLOGY METHOD 2020 2:[address] [facility] Immature Granulocytes % 1.0 % LAB HEMATOLOGY METHOD 2020 2:[address] [facility] Neutrophils Absolute 5.36 1.60 - 6.10 10*3/uL LAB HEMATOLOGY METHOD 2020 2:[address] [facility] Lymphocytes Absolute 2.27 1.20 - 3.90 10*3/uL LAB HEMATOLOGY METHOD 2020 2:[address] [facility] Monocytes Absolute 0.55 0.30 - 0.90 10*3/uL LAB HEMATOLOGY METHOD 2020 2:[address] [facility] Eosinophils Absolute 0.10 0.00 - 0.50 10*3/uL LAB HEMATOLOGY METHOD 2020 2:[address] [facility] Basophils Absolute 0.03 0.00 - 0.10 10*3/uL LAB HEMATOLOGY METHOD 2020 2:[address] [facility] Immature Granulocytes Absolute 0.04 0.00 - 0.06 10*3/uL LAB HEMATOLOGY METHOD 2020 2:[address] [facility] Blood Venous blood specimen / Unknown Venipuncture / Unknown 2020 11:18 AM EDT 2020 11:[address] [facility] - 2020 2:10 PM EDT Therapeutic decision making should be based on absolute values, rather than percentages. us Pita Breen INCOME TAX MANAGER, DNP LAB BLOOD ORDERABLE S Final Result [facility] [address] [place] [address] * Comprehensive metabolic panel (2020 11:18 AM EDT) Glucose, Plasma 95 74 - 99 mg/dL 2020 2:[address] [facility] BUN, Plasma 9 7 - 21 mg/dL 2020 2:[address] [facility] Creatinine, Plasma 0.86 0.60 - 1.10 mg/dL 2020 2:[address] [facility] BUN/Creatinine Ratio 10 2020 2:[address] [facility] Sodium, Plasma 139 136 - 145 mmol/L 2020 2:[address] [facility] Potassium, Plasma 4.0 3.7 - 4.8 mmol/L 2020 2:[address] [facility] Chloride, Plasma 102 97 - 107 mmol/L 2020 2:[address] [facility] CO2, Plasma 26 22 - 29 mmol/L 2020 2:[address] [facility] Anion Gap 11 6 - 16 mmol/L 2020 2:[address] [facility] Total Calcium, Plasma 9.4 8.9 - 10.2 mg/dL 2020 2:[address] [facility] Total Protein 7.1 6.3 - 7.9 g/dL 2020 2:[address] [facility] Albumin, Plasma 4.5 3.5 - 5.2 g/dL 2020 2:[address] [facility] AST, Plasma 15 11 - 32 U/L 2020 2:[address] [facility] ALT, Plasma 11 8 - 33 U/L 2020 2:[address] [facility] Alkaline Phosphatase, Plasma 77 35 - 104 U/L 2020 2:[address] [facility] Total Bilirubin, Plasma 0.4 0.2 - 1.1 mg/dL 2020 2:[address] [facility] eGFR >60 >60 mL/min/1.7 3m*2 2020 2:[address] [facility] Comment:eGFR = estimated GFR ; eGFR units = mL/min/1.73 sq meters Chronic Kidney Disease is considered if eGFR <60 mL/min/1.73 sq meters Kidney failure is considered if eGFR is <15 mL/min/1.73 sq meters. eGFR assumes steady state plasma creatinine concentration; not applicable if renal function is rapidly changing or patient is on dialysis. eGFR, if AFR/AM >60 >60 mL/min/1.7 3m*2 2020 2:[address] [facility] Comment:eGFR = estimated GFR ; eGFR units = mL/min/1.73 sq meters Chronic Kidney Disease is considered if eGFR <60 mL/min/1.73 sq meters Kidney failure is considered if eGFR is <15 mL/min/1.73 sq meters. eGFR assumes steady state plasma creatinine concentration; not applicable if renal function is rapidly changing or patient is on dialysis. Blood Venous blood specimen / Unknown Venipuncture / Unknown 2020 11:18 AM EDT 2020 11:18 AM EDT us Pita Breen APRN, ELISEO LAB BLOOD ORDERABLE S Final Result [facility] [address] [place] [address] documented in this encounter Visit Diagnoses Diagnosis Inflammatory arthritis- Primary Unspecified inflammatory polyarthropathy High risk medication use documented in this encounter Additional Health Concerns Assessment Noted Time A fall risk assessment has been complete d for the patient 2020 10:32 AM EDT documented as of this encounter Care Teams Package Drier Relationship Specialty Start Date End Date Carmelo Blandon APRN [address] [place] [address] PCP - General 08/11/20 02/18/22 documented as of this encounter
--- OUTSIDE RECORDS SUMMARY | 2024-02-24 15:41 | XMS_ITS | Encounter Summary ---
Author Organization [facility] Address [address] [place] [address] Care Team Providers Care Java Scala Developer Name Role Phone Fuad Dawson MD Primary Care Provider [phone] Alicia Ndiaye Unavailable [phone] Encounter Details Date Type Department Care Team (Latest Contact Info) Description 02/20/2022 Travel Social History Tobacco Use Types Packs/Day [...] documented as of this encounter Care Teams Java Scala Developer Relationship Specialty Start Date End Date Fuad Dawson MD PCP - General 02/19/22 Alicia Ndiaye PA [address] [address] Physician Overlock Waistline Joiner Neurology 02/20/22 documented as of this encounter
--- OUTSIDE RECORDS SUMMARY | 2024-02-24 15:41 | XMS_ITS | Encounter Summary ---
Author Organization [facility] Address [address] [place] [address] Care Team Providers Care Mud Mixer Helper Name Role Phone Fuad Dawson MD Primary Care Provider [phone] Alicia Ndiaye Unavailable [phone] Encounter Details Date Type Department Care Team (Latest Contact Info) Description 02/04/2024 Travel Social History Tobacco Use Types Packs/Day [...] documented as of this encounter Care Teams Mud Mixer Helper Relationship Specialty Start Date End Date Fuad Dawson MD PCP - General 02/19/22 Alicia Ndiaye PA [address] [place] [address] Physician Assistant Finance Director Neurology 02/20/22 documented as of this encounter
--- OUTSIDE RECORDS SUMMARY | 2024-02-24 15:41 | XMS_ITS | Clinical Summary ---
Author Organization [facility] Address [address] [place] [address] Care Team Providers Care Powerhouse Laborer Name Role Phone Fuad Dawson MD Primary Care Provider [phone] Alicia Ndiaye Unavailable [phone] Allergies No known active allergies Medications montelukast (Singulair) 10 MG tablet Take 1 tablet (10 mg) by mouth 1 (one) time each day. 1 Active ondansetron (Zofran) 4 MG tablet Take 1 tablet by mouth if needed. 1 Active cyclobenzaprine (Flexeril) 5 MG tablet Take 5 mg by mouth if needed for muscle spasms. Active LORazepam (Ativan) 2 MG tablet 2 Active Meclizine HCl 25 MG chewable tablet 2 Active tiZANidine (Zanaflex) 4 MG tabletIndication s:Myofascial pain 1 tab at bedtime x 1 week then 2 tabs at bedtime. 60 tablet 3 2 Active Additional Information Patient not taking.Reported on 03/12/2023 rizatriptan (Maxalt) 10 MG tabletIndication s:Migraine without aura and without status migrainosus, not intractable Take 1 tablet (10 mg total) by mouth 1 (one) time if needed for migraine (may repeat x1) for up to 9 doses. May repeat in 2 hours if unresolved. Do not exceed 30 mg in 24 hours. 9 tablet 5 2 Active Additional Information Patient not taking.Reported on 03/12/2023 meloxicam (Mobic) 7.5 MG tabletIndication s:Inflammatory arthritis,High risk medication use Take 1 tablet (7.5 mg total) by mouth 1 (one) time each day. 90 tablet 2 2 Active Additional Information Patient not taking.Reported on 02/04/2024 hydroxychloroqui ne (Plaquenil) 200 MG tabletIndication s:Inflammatory arthritis,High risk medication use Take 1 tablet (200 mg total) by mouth 2 (two) times a day. 180 tablet 2 Active Additional Information Patient not taking.Reported on 03/12/2023 escitalopram (Lexapro) 20 MG tablet 1 tablet (20 mg). 3 Active torsemide (Demadex) 20 MG tablet 3 Active Hospital, Clinic, or Other Facility Administered Medication Ordered Dose Route Frequency Start Date End Date Status methylPREDNISolone acetate (DEPO-Medrol) injection 200 mgIndications:Myofascial pain 200 mg IM Once 02/04/2024 02/04/2024 Ended bupivacaine PF (Marcaine) 0.25 % injection 12.5 mgIndications:Myofascial pain 12.5 mg IJ Once 02/04/2024 02/04/2024 Ended Active Problems Problem Noted Date Diagnosed Date Obesity (BMI 35.0-39.9 without comorbidity) 01/30 Encounters Date Type Department Care Team Description 02/04/2024 10:30 AM EST Procedure Visit [place] [facility] [address], [address] [place] [address] Alicia Ndiaye PA Myofascial pain (Primary Dx); Myalgia, other site 02/04/2024 Travel from Last 3 Months Immunizations Name Administration Dates Next Due Hep A, Adult 01/28/2018 Influenza, injectable, quadr ivalent, preservative free 02/01/2022,01/12/2021,01/05/2020,2018 Influenza, seasonal, injecta ble, preservative free 01/28/2018 Tdap 12/18/2017,12/13/2015 Family History Medical History Relation Name Comments Stroke Father aTrun Schroeder Hypertension Mother Lilly Maddox Stroke Mother Lilly Maddox Hypertension Other 1 Migraines Other 2 Relation Name Status Comments Father Tarun Schroeder Mother Lilly Maddox Other 1 Other 2 Social History Tobacco Use Types Packs/Day Years [...] on file Sexual Orientation Not on file Last Filed Vital Signs Vital Sign Reading Time Taken Comments Blood Pressure 125/86 02/04/2024 9:58 AM EST Pulse 70 02/04/2024 9:58 AM EST Temperature 36.8 ??C (98.2 ??F) 02/19/2022 8:12 AM ES T Respiratory Rate 14 09/15/2018 1:53 PM EDT Oxygen Saturation 96% 02/04/2024 9:58 AM EST Inhaled Oxygen Concentration - - Weight 107 kg (235 lb 14.3 oz) 02/04/2024 9:58 A M EST Height 165.1 cm (5' 5 ) 02/04/2024 9:58 AM EST Body Mass Index 39.25 02/04/2024 9:58 AM EST Plan of Treatment Health Maintenance Due Date Last Done Comments [facility]-HIV Screening 1985 [facility]-/Child/Adol SDOH Screenings 1985 [facility]-Varicella Vaccines (1 of 2 - 13+ 2-dose series) 1998 [facility]- SDOH Screenings 12/16/2003 [facility]-Adult SDOH Screenings 12/16/2003 [facility]-Hepatitis B Vaccines (1 of 3 - 19+ 3-dose series) 2004 [facility]-Pap Smear 2006 [facility]-Cervical Cancer Screening 12/16/2015 [facility]-HPV/Cotest 12/16/2015 [facility]-Depression Screening 02/19/2023 02/19/2022 [id number] Vaccine ( season) 2023 [facility]-Influenza Vaccine (#1) 11/30/202302/01, 01/12/2021, 01/05/2020, Additional history exists [facility]-DTaP,Tdap,and Td Vaccines (3 - Td or Tdap) 12/19/2027 12/18/2017, 12/13/2015 [facility]-Zoster Vaccines (1 of 2) 12/16/2035 [facility]-RSV Vaccine: 60+ Years or (1 - 1-dose 75+ series) 2060 [facility]-Hepatitis A Vaccines Aged Out 01/28/2018 No longer eligible based on patient's age to complete this topic [facility]-Hepatitis C Screening Completed 06/02/2018 [facility]-Obesity Intervention Completed 024, 03/12/2023, 02/19/2022, Additional history exists [facility]-HIB Vaccines Aged Out No longer e ligible based on patient's age to complete this topic [facility]-HPV Vaccines Aged Out No longer e ligible based on patient's age to complete this topic [facility]-IPV Vaccines Aged Out No longer e ligible based on patient's age to complete this topic [facility]-Pneumococcal Vaccine: Pediatrics (0 to 5 Years) and At-Risk Patients (6 to 64 Years) Aged Out No longer eligible based on patient's age to complete this topic [facility]-Rotavirus Vaccines Aged Out No lo nger eligible based on patient's age to complete this topic Procedures Procedure Name Priority Date/Time Associated Diagnosis Comments HEPATITIS C ANTIBODY W/REFLEX TO HCV QUANT PCR Routine 06/02/2018 10:37 AM EST from Last 3 Months or Most Recently Relevant to Health Maintenance Results * Hepatitis C Antibody (06/02/2018 10:37 AM EST) Hepatitis C Antibody NEGATIVE Reference Range: Negative [facility] 06/02/2018 10:3 7 AM EST 06/02/2018 1:19 PM EST us Pita Breen BUSINESS SYSTEM CONSULTANT, DNP LAB BLOOD ORDERABLE S Final Result [facility] from Last 3 Months or Most Recently Relevant to Health Maintenance Insurance [employer] Care Teams Powerhouse Laborer Relationship Specialty Start Date End Date Fuad Dawson MD PCP - General 02/19/22 Alicia Ndiaye PA [address] [facility] [address] [place] [address] Physician Milliner Helper Neurology 02/20/22
--- OUTSIDE RECORDS SUMMARY | 2024-02-24 15:41 | XMS_ITS | Encounter Summary ---
Author Organization Healthcare Address [address] [place] [address] Care Team Providers Care Tibco Developer Name Role Phone Carmelo Blandon APRN Primary Care Provider [phone] Encounter Details Date Type Department Care Team (Late st Contact Info) Description 12/31/2021 Telephone [facility] [address] [place] [address] Alicia Ndiaye PA [address] [place] [address] Social History Tobacco Use Types [...] encounter Miscellaneous Notes * Telephone Encounter - Christopher Major - 01/01/2022 3:38 PM EDT director of student affairs contacted pharmacy on my behalf and under direct supervision by me. This issue hasbeen resolved no follow up needed. * Telephone Encounter - Wanda Solano - 01/01/2022 3:35 PM EDT Contacted [facility] in [place], [place] ([phone]) and spoke with pharmacist to follow-up on inquiry regarding DDI. Relayed approval and pharmacy was agreeable to go ahead and fill these medications. documented in this encounter Plan of Treatment Not on file documented as of this encounter Visit Diagnoses Not on filedocumented in this encounter Additional Health Concerns Assessment Noted Time A fall risk assessment has been complete d for the patient 12/31/2021 1:21 PM EDT documented as of this encounter Care Teams Tibco Developer Relationship Specialty Start Date End Date Carmelo Blandon APRN [address] [place], [place] [id number] PCP - General 08/11/20 02/18/22 documented as of this encounter
--- OUTSIDE RECORDS SUMMARY | 2024-02-24 15:41 | XMS_ITS | Encounter Summary ---
Author Organization Healthcare Address [address] [place] [address] Care Team Providers Care Drosser Name Role Phone Carmelo Blandon APRN Primary Care Provider [phone] Reason for Visit * Reason Comments Follow-up Encounter Details Date Type Department Care Team (Late st Contact Info) Description 04/06/2021 9:50 AM EST Office Visit OR Clinic [facility] [address] [place] [phone] Estefania Sepulveda, ENTEROSTOMAL THERAPY NURSE [address] [place] [phone] Inflammatory arthritis (Primary Dx); High risk [...] AM EST documented as of this encounter Last Filed Vital Signs Vital Sign Reading Time Taken Comments Blood Pressure 127/86 04/06/2021 9:51 AM EST Pulse 76 04/06/2021 9:51 AM EST Temperature 36.6 ??C (97.8 ??F) 04/06/2021 9:51 AM ES T Respiratory Rate - - Oxygen Saturation 98% 04/06/2021 9:51 AM EST Inhaled Oxygen Concentration - - Weight 95.9 kg (211 lb 6.7 oz) 04/06/2021 9:51 A M EST Height 165.1 cm (5' 5 ) 04/06/2021 9:51 AM EST Body Mass Index 35.18 04/06/2021 9:51 AM EST documented in this encounter Miscellaneous Notes * Progress Notes - Estefania Sepulveda APRN - 04/06/2021 9:50 AM EST Subjective Patient ID: Talia Collins is a 35 y.o. female. Chief Complaint Patient presents with ??? Follow-up HPI 35 year old female in [...] Denied uveitis, IBD, psoriasis. 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 with children. Mother with RA. PGM with RA. Lab results from referring provider: + LAC, - CCP, - RF, - SSA, - SSB, - IOS DEVELOPER, - Agustin, - anti dsDNA, - SCL70,- antichromatin, - anti Jo1, - anti centromere. Today (04/06/2021), currently taking HCQ 200 mg BID. No recent fevers or infections. No COVID vaccine. Last eye appt was in September 2020. Improved hand and knee pain with HCQ. Bilateral foot pain same since last visit. Podiatry has diagnosed plantar fasciitis. Receiving steroid injections. No joint swelling. Feet will draw for 15 minutes at a time. Unilateral occurrence. Feels like a coy horse. Occurs at night. During episode, she cannot move her feet. Does not affect the shins. Happens mostly when she is barefoot at the end ofthe day. ?? Medication History: HCQ (09/16- current) Visit Vitals BP 127/86 Pulse 76 Temp 36.6 ??C (97.8 ??F) Ht 1.651 m (5' 5 ) Wt 95.9 kg (211 lb 6.7 oz) SpO2 98% BMI 35.18 kg/m?? The following portions of the chart [...] the homunculus joint exam. Swollen: --0 Tender: --1 PGA: 06/07 Rapid3: 7.0 Assessment/Plan Diagnosis Plan 1. Inflammatory arthritis 2. High risk medication use 1. Inflammatory Arthritis: Negative RF and CCP from PCP. Also, - SSA, - SSB, - IOS DEVELOPER, - Agustin, - antidsDNA, - SCL70, - antichromatin, - anti Jo1, - anti centromere. + DOMINICK (1:80; homogenous). Currentlytaking HCQ 200 mg BID. Improved hand and knee pain. Feet are particularly bothersome. HBV negative (06/16) HCV negative (06/16) TB quant (06/16) HCQ eye exam WNL (09/18) Labs from hospitalization (12/15/20): CBC WNL, BMP WNL. ?? Plan: - Continue HCQ. 400 mg/day. - Magnesium level today ?? RTC in 6 months. Current Outpatient Medications Medication Instructions ??? [...] Laterality Date ??? APPENDECTOMY N/A Appendectomy from [facility] ??? GALLBLADDER SURGERY N/A Gallbladder Surgery from [facility] ??? SALPINGECTOMY N/A Bilateral salpingectomy from [facility] ??? SKIN LESION EXCISION N/A Skin lesion excision from [facility] ??? WISDOM TOOTH EXTRACTION N/A Oral Surgery Tooth Extraction [place] Tooth from [facility] Family History Problem Relation Name Age of [...] documented as of this encounter Results * Magnesium (04/06/2021 10:26 AM EST) Magnesium, Plasma 2.0 1.9 - 2.4 mg/dL 04/06/2021 12:34 PM EST [facility] Blood Venous blood specimen / Unknown Venipuncture / Unknown 04/06/2021 10:26 AM EST 04/06/2021 10:26 AM EST Estefania Sepulveda APRN LAB BLOOD ORDERABLES Fi nal Result [facility] [address] [place] [address] documented in this encounter Visit Diagnoses Diagnosis Inflammatory arthritis- Primary Unspecified inflammatory polyarthropathy High risk medication use documented in this encounter Additional Health Concerns Assessment Noted Time A fall risk assessment has been complete d for the patient 04/06/2021 9:53 AM EST documented as of this encounter Care Teams Drosser Relationship Specialty Start Date End Date Carmelo Blandon APRN [address] [place] [address] PCP - General 08/11/20 02/18/22 documented as of this encounter
--- OUTSIDE RECORDS SUMMARY | 2024-02-24 15:41 | XMS_ITS | Encounter Summary ---
Author Organization Healthcare Address [address] [place] [address] Care Team Providers Care Band Saw Operator Name Role Phone Carmelo Blandon APRN Primary Care Provider [phone]- [phone] Encounter Details Date Type Department Care Team (Latest Contact Info) Description 08/31/2020 12:05 AM EDT - 08/31/2020 11:59 PM EDT Hospital Encounter [facility] [address] [place] [phone] Encounter for other specified special examinations Discharge [...] Priority Date/Time Associated Diagnosis Comments XR FOOT RIGHT 3+ VIEWS Routine 08/31/2020 12:05 AM EDT Encounter for other specified special examinations documented in this encounter Results * XR Foot Right 3+ Views (08/31/2020 12:05 AM EDT) Narrative IMAGING - 01/19/2021 9:00 AM EDT This study was performed at an outside facility and has been loaded into the PACS system for reference only. ??This order has been auto-finalized and does not contain a result. us Unknown Unknown IMG XR PROCEDURES Final Result IMAGING documented in this encounter Visit Diagnoses Diagnosis Encounter for other specified special examinations documented in this encounter Care Teams Band Saw Operator Relationship Specialty Start Date End Date Carmelo Blandon APRN [address] [place] [id number] PCP - General 08/11/20 02/18/22 documented as of this encounter
--- OUTSIDE RECORDS SUMMARY | 2024-02-24 15:41 | XMS_ITS | Encounter Summary ---
Author Organization Healthcare Address [address] [place] [address] Care Team Providers Care Cyanide Furnace Operator Name Role Phone Carmelo Blandon APRN Primary Care Provider [phone]- [phone] Encounter Details Date Type Department Care Team (Latest Contact Info) Description 04/06/2021 Travel Social History Tobacco Use Types Packs/Day [...] documented as of this encounter Care Teams Cyanide Furnace Operator Relationship Specialty Start Date End Date Carmelo Blandon APRN [address] [place] [address] JEAN PAUL [place]ak[place] [id number] PCP - General 5/14/21 11/21/22 documented as of this encounter
[2024-02-24 16:24] VITALS: BP 142/78; PULSE 83; RESP 18; TEMP 36.8; O2SAT 97; BMI 39.6
[2024-02-24 16:34] LABS: UTC Strep Screen (Rapid) Negative (Negative)
--- NOTE | 2024-02-24 16:44 | ED_ITS ---
Discharge Plan Disposition Patient Disposition: Home, Self-Care Condition: Good Prescriptions Prescriptions: New amoxicillin-pot clavulanate 875-125 mg Tablet 1 tab PO Q12H Qty: 20 0RF guaifenesin [Mucinex] 600 mg tablet extended release 12hr 600 mg PO BID PRN (Reason: cough) Qty: 20 0RF No Action montelukast 10 mg tablet See Rx Instructions .ROUTE .COMPLEX Qty: 90 2RF Dose Instruction: TAKE 1 TABLET BY MOUTH ONCE DAILY Rx Instructions: TAKE 1 TABLET BY MOUTH ONCE DAILY escitalopram oxalate 20 mg tablet See Rx Instructions .ROUTE .COMPLEX Qty: 90 2RF Dose Instruction: TAKE 1 TABLET BY MOUTH ONCE DAILY FOR CONTROL OF ANXIETY AND DEPRESSED MOOD Rx Instructions: TAKE 1 TABLET BY MOUTH ONCE DAILY FOR CONTROL OF ANXIETY AND DEPRESSED MOOD Referrals Follow up/Referrals: Fuad Dawson MD [Primary Care Provider] - See instructions Activity Restrictions/Add. Instructions Additional Instructions/Restrictions: *Monitor Temp, Over the counter Motrin or Tylenol as directed/as needed Tylenol every 4 hours and Motrin every 6 hours (as long as your family doctor has told you that you can take it) for fever or pain. and straight to ER if unable to lower temp less than 101.0 after medication given *Warm salt water gargles may help to soothe the throat *Throat Lozenges? *Warm fluids like tea with honey may help to soothe the throat? *Sleep elevated *Humidifier/Vaporizer Take medication as prescribed Follow up IMMEDIATELY for new or worsening symptoms or no Noticeable improvement over the next 48-72 hours. 911 for difficulty breathing or swa llowing Clinical Impressions Clinical Impression: Sinusitis, Pharyngitis Instructions Patient Instructions: DI for Sinusitis, Sore Throat Print Language Print Language: New Zealander Discharge ED Provider: Greta Cotto [facility] [place] General Stated complaint: exp-strep, sore throat Mode of Arrival: Ambulatory Source of Information: Patient Time Seen by Provider: 02/24/24 16:46 Description of Symptoms (Recalled from Triage Doc. by RN): SORE THROAT, COUGH , CHEST HEAVY FEELING HEENT Symptoms (Recalled from RN notes): Yes Resp Symptoms (Recalled from RN notes): Yes Skin Symptoms (Recalled from RN notes): No MS Symptoms (Recalled from RN notes): No Functional Status (Recalled from RN notes): WNL History of Present Illness Provider Complaint: Patient states that she started out a week or so ago with sinus congestion and pressure thought she may have had a sinus infection and felt like is trying to move into her chest States that now her throat feels sore and raw and hurts when she swallows and congested in her chest Related Data Previous Rx's ?Medication ?Instructions ?Recorded montelukast 10 mg tablet See Rx Instructions .Route 06/05/23 .COMPLEX #90 tabs escitalopram oxalate 20 mg tablet See Rx Instructions .Route 08/27/23 .COMPLEX #90 tabs amoxicillin 875 mg-potassium 1 tab PO Q12H #20 tabs 02/24/24 clavulanate 125 mg tablet guaifenesin 600 mg tablet, 600 mg PO BID PRN cough #20 tabs 02/24/24 extended release 12 hr (Mucinex) Allergies Allergy/AdvReac Type Severity Reaction Status Date / Time No Known Allergies Allergy Verified 10/24/23 10:47 Worker's Comp Is this a Worker's Comp case?: No [facility] Disclaimer: The information contained in this section may have been updated after the patient was seen, as this information can be updated by other users. Medical History (Updated 02/24/24 @ 16:51 by Greta Cotto APRN) Allergies Toe pain, left HLD (hyperlipidemia) JACQUIE on CPAP Edema HTN (hypertension) Surgical History History of cholecystectomy History of appendectomy Hx of tubal ligation Family History Other Cancer Heart attack Hypertension Stroke Thyroid disorder Social History Smoking Status: Never smoker alcohol intake: never substance use type: denies use current occupational status: other household members: family housing: house current occupation: [employer] current occupational exposures/hazards: No caffeine: No ROS Obtained: Yes All systems reviewed & no additional complaints except as documented and Yes Systems reviewed as appropriate & no additional complaints except as documented Constitutional Constitutional: Reports system reviewed and no additional complaints, except as documented, Reports as per HPI and Reports headache(s) ENT Ears, Nose, Mouth, and Throat: Reports system reviewed and no additional complaints, except as documented, Reports as per HPI, Reports headache(s), Reports sinus pain, Reports sinus pressure and Reports sore throat Cardiovascular Cardiovascular: Reports system reviewed and no additional complaints, except as documented and Reports as per HPI Respiratory Respiratory: Reports system reviewed and no additional complaints, except as documented, Reports as per HPI, Reports chest congestion and Reports cough Gastrointestinal Gastrointestingal: Reports system reviewed and no additional complaints, except as documented and as per HPI Musculoskeletal Musculoskeletal: Reports system reviewed and no additional complaints, except as documented and Reports as per HPI Neurologic Neurologic: Reports headache(s) Physical Exam General General appearance: alert and in no apparent distress ENT ENT exam: Present mucous membranes moist Expanded ENT Exam Nose exam: Present sinus tenderness Throat exam: Present tonsillar erythema; Absent tonsillomegaly or tonsillar exudate Respiratory Respiratory exam: Present normal lung sounds bilaterally; Absent respiratory distress or wheezes Cardiovascular Cardiovascular exam: Present regular rate, normal rhythm and normal heart sounds Abdominal Exam Abdominal exam: Present soft and normal bowel sounds; Absent distention or tenderness Neurological Exam Neurological exam: Present alert, oriented X3 and normal gait Medical Decision Making Medical Records Screening: Per USPSTF and CDC recommendations, given the prevalence of disease in our region, it is our hospital?s policy to screen for HIV and viral Hepatitis for all patients aged 18 and over and those with ongoing risk factors. Juan Diego Inquiry Pt receiving controlled substance: No Juan Diego was queried for this patient: No Vital Signs: 02/24/24 16:24 Temperature 98.3 F Temperature Source Oral Pulse Rate [Left Radial] 83 Respiratory Rate 18 Blood Pressure [Left Arm] 142/78 H Blood Pressure Mean [Left Arm] 99 02 Sat by Pulse Oximetry 97 Lab Data Lab results reviewed: Yes I reviewed the patient's lab results. Lab Results 02/24/24 16:19: Strep Scn Rapid Clinic Negative Orders (Tests/Meds): ORDERS Category Date Time Status Strep Screen Confirmation Stat Micro 02/24/24 16:19 Received
[2024-02-24 16:55] VITALS: BP 142/78; PULSE 83; RESP 18; TEMP 36.8
== END 2024-02-24 17:00 | disposition home or self-care (01) ==
PROVIDERS: Emergency Provider Nurse Practitioner; PCP Family Medicine
DX: J01.90 Acute sinusitis, unspecified (principal); J02.9 Acute pharyngitis, unspecified
CPT/HCPCS: 87880; 99213; G0381

== ENCOUNTER 2024-03-26 12:52 | Outpatient (CLI) | payer OTHER, SELFPAY ==
[2024-03-26 18:04] LABS: Basophils % 0.6 % (0.1-2.0); Eosinophils # 0.1 K/mm3 (0.0-0.4); Eosinophils % 1.9 % (0.1-12.0); Hematocrit 43.5 % (37.0-47.0); Hemoglobin 14.2 g/dL (12.2-16.2); Lymphocytes # 1.3 K/mm3 (0.7-4.5); Lymphocytes % 24.3 % (10-50); Mean Corpuscular HGB Conc 32.6 g/dL (31.8-35.4); Mean Corpuscular Hemoglobin 30.9 pg (27.0-31.2); Mean Corpuscular Volume 94.8 fl (81-99); Mean Platelet Volume 10.1 fl (7.4-10.4); Monocytes # 0.6 K/mm3 (0.1-1.0); Monocytes % 11.8 % (1.7-9.3); Neutrophils # 3.1 K/mm3 (1.8-7.8); Neutrophils % 60.8 % (37.0-80.0); Platelet Count 272 K/mm3 (142-424); Red Blood Count 4.59 M/mm3 (4.20-5.40); Red Cell Distribution Width 13.2 % (11.5-17.5); White Blood Count 5.2 K/mm3 (4.8-10.8)
[2024-03-26 18:11] LABS: Alanine Aminotransferase 32 U/L (12-78); Albumin Level 4.2 g/dl (3.5-5.0); Albumin/Globulin Ratio 1.7 (1.1-1.8); Alkaline Phosphatase 81 U/L (38-126); Anion Gap 13.2 mEq/L (5-15); Aspartate Amino Transferase 34 U/L (14-36); Bilirubin,Total 0.6 mg/dl (0.2-1.3); Blood Urea Nitrogen 13 mg/dl (7-17); Calcium 9.5 mg/dl (8.4-10.2); Carbon Dioxide 25 mmol/L (22.0-30.0); Chloride 104 mmol/L (98-107); Chol/HDL Ratio 5.2 (1-3.5); Cholesterol 176 mg/dl (140-200); Estimated Glomerular Filt Rate 80 ml/min (>60); GFR (African American) 97 ML/MIN (>60); Globulin 2.5 g/dL (1.3-3.2); Glucose 107 mg/dl (74-100); HDL Cholesterol 34 mg/dl (40-60); Potassium 4.2 mmoL/L (3.5-5.1); Sodium 138 mmol/L (136-145); Total Protein,Serum 6.7 g/dl (6.3-8.2); Triglycerides 124 mg/dl (30-150); VLDL Cholesterol 25 mg/dL (0-40)
[2024-03-26 18:22] LABS: Direct LDL Cholesterol 119.74 mg/dL (100-129)
[2024-03-26 18:28] LABS: T4 (Thyroxine) 9.7 ug/dl (5.53-11.0)
[2024-03-26 18:42] LABS: Thyroid Stimulating Hormone 2.18 uIU/mL (0.465-4.68)
[2024-03-26 20:03] LABS: HIV Combo NEGATIVE (Negative)
[2024-03-28 09:08] LABS: HCV Ab Non Reactive (Non Reactive)
== END 2024-03-26 23:59 | disposition home or self-care (01) ==
LOC: LAB.DROPOF 03-29 12:52
PROVIDERS: PCP Nurse Practitioner Family; Visit Provider Nurse Practitioner Family
DX: E78.5 Hyperlipidemia, unspecified (principal); J02.9 Acute pharyngitis, unspecified; I10 Essential (primary) hypertension; E07.9 Disorder of thyroid, unspecified
CPT/HCPCS: 80050; 80053; 80061; 84436; 84443; 85025; 86803; 87389

== ENCOUNTER 2024-07-08 12:58 | Outpatient (CLI) | payer OTHER, SELFPAY ==
[2024-07-08 13:41] LABS: Erythrocyte Sedimentation Rate 29 mm/hr (0-20)
[2024-07-08 13:53] LABS: Albumin Level 4.4 g/dl (3.5-5.0); Chloride 103 mmol/L (98-107); Sodium 138 mmol/L (136-145)
[2024-07-08 13:54] LABS: Potassium 4.3 mmoL/L (3.5-5.1)
[2024-07-08 13:56] LABS: Alanine Aminotransferase 30 U/L (12-78); Anion Gap 13.3 mEq/L (5-15); Aspartate Amino Transferase 31 U/L (14-36); Blood Urea Nitrogen 11 mg/dl (7-17); Carbon Dioxide 26 mmol/L (22.0-30.0); Estimated Glomerular Filt Rate 80 ml/min (>60); GFR (African American) 97 ML/MIN (>60)
[2024-07-08 13:57] LABS: Albumin/Globulin Ratio 1.4 (1.1-1.8); Alkaline Phosphatase 77 U/L (38-126); Bilirubin,Total 0.7 mg/dl (0.2-1.3); Calcium 9.8 mg/dl (8.4-10.2); Globulin 3.1 g/dL (1.3-3.2); Glucose 143 mg/dl (74-100); Total Protein,Serum 7.5 g/dl (6.3-8.2)
[2024-07-08 14:03] LABS: C-Reactive Protein 12.5 mg/L (0-4)
[2024-07-08 14:29] LABS: Thyroid Stimulating Hormone 2.55 uIU/mL (0.465-4.68)
[2024-07-18 00:03] LABS: Rheumatoid Factor IGA < 7 U (<7)
== END 2024-07-08 23:59 | disposition home or self-care (01) ==
LOC: LAB 12:58
PROVIDERS: PCP Family Medicine; Visit Provider Family Medicine
DX: M25.571 Pain in right ankle and joints of right foot (principal); E83.10 Disorder of iron metabolism, unspecified; R60.9 Edema, unspecified; E66.9 Obesity, unspecified; Z68.39 Body mass index [BMI] 39.0-39.9, adult; G25.81 Restless legs syndrome; G47.33 Obstructive sleep apnea (adult) (pediatric); M06.9 Rheumatoid arthritis, unspecified
CPT/HCPCS: 36415; 80053; 84443; 85651; 86140; 86431

== ENCOUNTER 2025-01-03 11:28 | Outpatient (CLI) | payer OTHER, SELFPAY ==
--- OUTSIDE RECORDS SUMMARY | 2025-01-03 11:31 | XMS_ITS | Clinical Summary ---
Author Organization [facility] Address [address] [place] [address] Care Team Providers Care Capper Machine Operator Name Role Phone Fuad Dawson MD Primary Care Provider [phone] SenthilAlicia buneo Unavailable [phone] Allergies No known active allergies Medications [...] torsemide (Demadex) 20 MG tablet 3 Active Active Problems Problem Noted Date Diagnosed Date Obesity (BMI 35.0-39.9 without comorbidity) 01/30 Immunizations Immunization Administration Dates Next Due Hep A, Adult 01/28/2018 Influenza, injectable, quadr ivalent, preservative free 02/01/2022,01/12/2021,01/05/2020,2018 Influenza, seasonal, injecta ble, preservative free 01/28/2018 Tdap 12/18/2017,12/13/2015 Family History Medical History Relation Name Comments Stroke Father Tarun Schroeder Hypertension Mother Lilly Maddox Stroke Mother [...] 70 02/04/2024 9:58 AM EST Temperature 36.8 C (98.2 F) 02/19/2022 8:12 AM EST Respiratory Rate 14 09/15/2018 1:53 PM EDT [...] 19+ 3-dose series) 2004 [facility]-Pap Smear 2006 HPV Vaccines (1 - 3-dose SCDM series) 2012 [facility]-Cervical Cancer Screening 12/16/2015 [facility]-HPV/Cotest 12/16/2015 [facility]-Depression Screening 02/19/2023 02/19/2022 [id number] Vaccine ( - season) 2024 [facility]-Influenza Vaccine (#1) 11/29/202402/01, 01/12/2021, 01/05/2020, Additional history exists [facility]-DTaP,Tdap,and Td Vaccines (3 - Td or Tdap) 12/19/2027 12/18/2017, 12/13/2015 [facility]-Zoster Vaccines (1 of 2) 12/16/2035 [facility]-Hepatitis A Vaccines Aged Out 01/28/2018 No [...] 5 Years) and At-Risk Patients (6 to 49 Years) Aged Out No longer eligible based [...] 7 AM EST 06/02/2018 1:19 PM EST Pita Breen APRN, DNP LAB BLOOD ORDERABLE S Final Result SUNQUEST from Last 3 Months or Most Recently Relevant to Health Maintenance Insurance [employer] [facility] MEDICAID Care Teams Capper Machine Operator Relationship Specialty Start Date End Date Fuad Dawson MD PCP - General 02/19/22 Alicia Ndiaye PA [address] [place] [address] Physician Android Ios Developer Neurology 02/20/22
--- NOTE | 2025-01-03 11:34 | XR_ITS ---
FINAL REPORT CLINICAL HISTORY: RT knee pain FINDINGS: AP and lateral views of the right knee were obtained. There is no prior exam for comparison. There is no acute fracture or dislocation. The joint space is preserved. Physiologic immaturity is noted. Growth plates are normal. Soft tissues are normal. IMPRESSION: No acute osseous abnormality of the right knee. Reviewed, Interpreted and Dictated by Alana Lange MD Transcribed by Laly Maddox Authenticated and [facility]
== END 2025-01-03 23:59 | disposition home or self-care (01) ==
LOC: RAD 11:29
PROVIDERS: PCP Family Medicine; Visit Provider Family Medicine
DX: M25.561 Pain in right knee (principal)
CPT/HCPCS: 73560